=== PATIENT | female | born 1985 | race Caucasian/White ===

== ENCOUNTER 2016-05-29 07:47 | Emergency (ER) | payer MEDICAID ==
[2016-05-29] MEDS ORDERED: Ondansetron INJ* 2 MG/ML VIAL IV ONE (07:58)
[2016-05-29] MEDS ORDERED: NS 0.9% 1000 ML* 1,000 ML IV ONE (07:58)
[2016-05-29] MEDS ORDERED: Famotidine IV* 10 MG/ML 2 ML (20 mg) IV SLOW PU ONE (08:20)
[2016-05-29 08:27] LABS: Hematocrit 39 % (35-47); Hemoglobin 12.7 g/dl (12.0-16.0); Mean Corpuscular HGB Conc 33 g/dl (31-36); Mean Corpuscular Hemoglobin 28 pg (27-31); Mean Corpuscular Volume 86 fL (80-97); Mean Platelet Volume 11 um3 (7.4-10.4); Red Cell Distribution Width 15 % (10.5-15); White Blood Count 5.5 10^3/ul (3.5-10.8)
[2016-05-29 08:42] LABS: ALT 15 U/L (7-52); AST 26 U/L (13-39); Albumin 4.7 g/dL (3.2-5.2); Alkaline Phosphatase 40 U/L (34-104); Amylase 72 U/L (29-103); Anion Gap 5 mmol/L (2-11); BUN/Creatinine Ratio 14.7 (8-20); Blood Urea Nitrogen 11 mg/dL (6-24); C Reactive Protein < 1.00 mg/L (< 5.00); CO2 Carbon Dioxide 27 mmol/L (22-32); Calcium 9.5 mg/dL (8.6-10.3); Chloride 103 mmol/L (101-111); EGFR African American 118.3 (>60); Glucose 97 mg/dL (70-100); Lipase 21 U/L (11.0-82.0); Potassium 3.7 mmol/L (3.5-5.0); Sodium 135 mmol/L (133-145); Total Protein 7.7 g/dL (6.4-8.9)
[2016-05-29 10:07] LABS: Urine Bilirubin Negative (Negative); Urine Glucose Negative (Negative); Urine Nitrite Negative (Negative)
--- NOTE | 2016-05-29 10:14 | RAD ---
Indication: Lower mid abdomen pain. Flat and upright views of the abdomen demonstrates no free air. No dilated loops of bowel are noted. The colon is filled with stool. IMPRESSION: No free air or obstruction is noted.
[2016-05-29 10:58] VITALS: BP 98/59
--- NOTE | 2016-05-29 17:17 | ED ---
Prachi Oliveros Michael, scribed for Prabhjot Turner MD on 05/29/16 at 0823 . GI/ HPI - HPI Summary HPI Summary: 30 y/o female comes to the ED presenting with n/v/d that started at 0300 this morning. The pt also c/o intermittent episodes of lower abd pain that she describes as cramping. The abd pain does not radiate to other areas. She also c/ o MASSEY and chills, and the pt is afebrile. She had not eaten anything abnormal recently. The PMHx is significant for a heart murmur and an AV malformation. Her LNMP was one week ago, and she states she is not . The FHx is significant for DM and CA. - History of Current Complaint Chief Complaint: EDNauseaVomitDiarrh Time Seen by Provider: 05/29/16 07:58 Stated Complaint: VOMITING / DIZZY Hx Obtained From: Patient, Medical Records Onset/Duration: Started Hours Ago, Still Present Timing: Intermittent Severity: Moderate Current Severity: Moderate Pain Intensity: 0 Location of Pain: RLQ, LLQ Pain Characteristics: Cramping Associated Signs and Symptoms: Positive: Nausea, Vomiting, Diarrhea, Chills, Abdominal Pain, Other: - MASSEY. Negative: Fever - Allergy/Home Medications Allergies/Adverse Reactions: Allergies Allergy/AdvReac Type Severity Reaction Status Date / Time Adhesive Tape Allergy Mild Rash And Verified 05/29/16 08:22 Itching Aspirin [From Coricidin] Allergy Unknown Unknown Verified 05/29/16 08:22 Reaction Details Chlorpheniramine Allergy Unknown Unknown Verified 05/29/16 08:22 [From Coricidin] Reaction Details Diphenhydramine Allergy Unknown Verified 05/29/16 08:22 [From Benadryl] Reaction Details Flu Virus Vaccine Allergy See Comment Verified 05/29/16 08:22 PMH/Surg Hx/FS Hx/Imm Hx Endocrine/Hematology History: Denies: Hx Diabetes, Hx Thyroid Disease Cardiovascular History: Denies: Hx Hypertension, Hx Pacemaker/ICD Respiratory History: Reports: Hx Asthma Denies: Hx Chronic Obstructive Pulmonary Disease (COPD) GI History: Denies: Hx Ulcer Sensory History: Denies: Hx Hearing Aid Psychiatric History: Reports: Hx Panic Disorder - Surgical History Surgery Procedure, Year, and Place: EAR TUBES A CHILD - Immunization History Date of Tetanus Vaccine: utd Date of Influenza Vaccine: no Infectious Disease History: No Infectious Disease History: Denies: Hx Clostridium Difficile, Hx Hepatitis, Hx Human Immunodeficiency Virus (HIV), Hx of Known/Suspected MRSA, Hx Shingles, Hx Tuberculosis, Hx Known/ Suspected VRE, Hx Known/Suspected VRSA, History Other Infectious Disease, Traveled Outside the [place] in Last 30 Days - Family History Known Family History: Positive: Diabetes, Other - CA - Social History Occupation: Employed Full-time Lives: Alone Alcohol Use: None Hx Substance Use: No Substance Use Type: Reports: None Hx Tobacco Use: Yes Smoking Status (MU): Light Every Day Tobacco Smoker Type: Cigarettes Amount Used/How Often: 1/2 PPD Length of Time of Smoking/Using Tobacco: 7 YEARS Have You Smoked in the Last Year: Yes Review of Systems Positive: Chills. Negative: Fever Positive: Abdominal Pain, Vomiting, Diarrhea, Nausea Positive: Headache All Other Systems Reviewed And Are Negative: Yes Physical Exam - Summary Physical Exam Summary: VITAL SIGNS: Reviewed. GENERAL: Patient is a well developed and nourished female who is lying comfortable in the stretcher. Patient is not in any acute respiratory distress. HEAD AND FACE: Normocephalic and atraumatic. EYES: PERRLA, EOMI x 2, No injected conjunctiva. EARS: Hearing grossly intact. Ear canals and tympanic membranes are WNL. MOUTH: Oropharynx within normal limits. NECK: Supple, trachea is midline, no adenopathy, no JVD. CHEST: Symmetric, no tenderness at palpation LUNGS: Clear to auscultation bilaterally. No wheezing or crackles. CVS: RRR,, S1 and S2 present, positive ESM II/ ABDOMEN: Soft, diffuse abdominal tenderness.. No signs of distention. Positive bowel sounds. No rebound no guarding, and no masses palpated. No abdominal bruit or pulsations. EXTREMITIES: FROM in all major joints, no edema, no cyanosis or clubbing. NEURO: Alert and oriented x 3. No acute neurological deficits. Speech is normal. SKIN: Dry and warm Triage Information Reviewed: Yes Vital Signs On Initial Exam: Initial Vitals Temp Pulse Resp BP Pulse Ox 97.4 F 88 18 118/69 100 05/29/16 07:51 05/29/16 07:51 05/29/16 07:51 05/29/16 07:51 05/29/16 07:51 Vital Signs Reviewed: Yes Diagnostics - Vital Signs Vital Signs Temp Pulse Resp BP Pulse Ox 05/29/16 07:51 97.4 F 88 18 118/69 100 - Laboratory Result Diagrams: 05/29/16 08:15 05/29/16 08:15 Lab Statement: Any lab studies that have been ordered have been reviewed, and results considered in the medical decision making process. - Radiology abd XR Xray Interpretation: No Acute Changes - no free air or obstruction Radiology Interpretation Completed By: Radiologist - EKG EK EKG Rhythm: Sinus Bradycardia EKG Interpretation: no st elevations GIGU Course/Dx - Course Course Of Treatment: 30 y/o female comes to the ED presenting with n/v/d that started at 0300 this morning. The pt also c/o intermittent episodes of lower abd pain that she describes as cramping. The abd pain does not radiate to other areas. She also c/o MASSEY and chills, and the pt is afebrile. She had not eaten anything abnormal recently. The PMHx is significant for a heart murmur and an AV malformation. Her LNMP was one week ago, and she states she is not . The FHx is significant for DM and CA. Her blood work was within nml limits and urine analysis shows no signs of UTI. The abd XR shows no evidence of air or obstruction. The EKG shows sinus bradycardia. The pt was hydrated with IV fluids and given Zofran and Pepcin. Her nausea and vomiting resolved at this point. She was given a PO challenge and no nausea or vomiting occurred. Since pt is feeling better with no other sx she will be discharged home and follow up with PCP. I discussed all the findings and test results with the patient. Patient was instructed to return to the emergency room immediately if any of the symptoms return or worsens. They were explained the possibility of an early abdominal pathology which was not detected at this time despite the physical exam and testing. They understand and agree. Abdominal exam before discharge: Soft, NT. No signs of distention. BS present. No rebound no guarding , and no masses palpated. Patient is alert and oriented and hemodynamically stable. Patient is to follow up with primary care physician in the next 2 to 3 days. Patient agree and understands. - Diagnoses Differential Diagnoses - Female: Colitis, Gastritis, Gastroenteritis (Viral), Gastroenteritis (Bacterial), Gerd Provider Diagnoses: Nausea & vomiting, Diarrhea Discharge - Discharge Plan Condition: Improved Disposition: HOME Prescriptions: Ondansetron ODT TAB* [Zofran 4 MG Odt TAB*] 4 mg PO Q6H PRN #10 tab.odt PRN Reason: Vomiting Patient Education Materials: Acute Nausea and Vomiting (ED), Acute Diarrhea (ED ) Forms: *Work Release Referrals: Omid Patel MD [Primary Care Provider] - Additional Instructions: You will follow up with Dr. Patel within the next 2-3 days. The documentation as recorded by the Prachi ambriz Michael accurately reflects the service I personally performed and the decisions made by , Prabhjot Turner MD.
== END 2016-05-29 10:56 | disposition home or self-care (01) ==
LOC: ED 07:47
DX: R10.30 Lower abdominal pain, unspecified (principal); R11.2 Nausea with vomiting, unspecified; R19.7 Diarrhea, unspecified; R51 Headache; F17.210 Nicotine dependence, cigarettes, uncomplicated
CPT/HCPCS: 36415; 74020; 80053; 81003; 82150; 83605; 83690; 83735; 85025; 86140; 93005; 99284; J2405

== ENCOUNTER 2016-06-14 10:01 | Emergency (ER) | payer MEDICAID ==
--- NOTE | 2016-06-14 12:09 | UC ---
Throat Pain/Nasal Mitesh HPI - HPI Summary HPI Summary: complaint of headache nchills and muscle achiness that started last night nasal congestion and cough sore throat feels like her lymph nodes feel swollen denies N/V/D not taking any medication for symptoms - History of Current Complaint Chief Complaint: UCRespiratory Stated Complaint: CHILLS, SORE THROAT, AND ACHES Time Seen by Provider: 06/14/16 12:06 Hx Obtained From: Patient Hx Last Menstrual Period: 06/13/16 - Allergies/Home Medications Allergies/Adverse Reactions: Allergies Allergy/AdvReac Type Severity Reaction Status Date / Time Adhesive Tape Allergy Mild Rash And Verified 05/29/16 08:22 Itching Aspirin [From Coricidin] Allergy Unknown Unknown Verified 05/29/16 08:22 Reaction Details Chlorpheniramine Allergy Unknown Unknown Verified 05/29/16 08:22 [From Coricidin] Reaction Details Diphenhydramine Allergy Unknown Verified 05/29/16 08:22 [From Benadryl] Reaction Details Flu Virus Vaccine Allergy See Comment Verified 05/29/16 08:22 PMH/Surg Hx/FS Hx/Imm Hx Previously Healthy: Yes Endocrine History Of: Denies: Diabetes, Thyroid Disease Cardiovascular History Of: Reports: Cardiac Disorders - murmur Denies: Hypertension, Pacemaker/ICD Respiratory History Of: Reports: Asthma Denies: COPD GI/ History Of: Denies: Ulcer - Surgical History Surgical History: Yes Surgery Procedure, Year, and Place: EAR TUBES A CHILD - Family History Known Family History: Positive: None, Diabetes, Other - CA - Social History Occupation: Employed Full-time Lives: With Family Alcohol Use: None Substance Use Type: None Smoking Status (MU): Light Every Day Tobacco Smoker Type: Cigarettes Amount Used/How Often: 1/2 PPD Length of Time of Smoking/Using Tobacco: 7 YEARS Have You Smoked in the Last Year: Yes Review of Systems Constitutional: Fever, Chills, Fatigue Skin: Negative Eyes: Negative ENT: Sore Throat, Nasal Discharge Respiratory: Cough Cardiovascular: Negative Gastrointestinal: Negative Genitourinary: Negative Motor: Negative Neurovascular: Negative Musculoskeletal: Myalgia Neurological: Headache Psychological: Negative All Other Systems Reviewed And Are Negative: Yes Physical Exam Triage Information Reviewed: Yes Appearance: No Pain Distress, Well-Nourished Vital Signs: Initial Vital Signs Temp 99.9 F 06/14/16 10:45 Pulse 89 06/14/16 10:45 Resp 18 06/14/16 10:45 BP 118/68 06/14/16 10:45 Pulse Ox 100 06/14/16 10:45 Vital Signs Reviewed: Yes Eyes: Positive: Conjunctiva Clear ENT: Positive: Pharyngeal erythema, Nasal congestion, Nasal drainage, TMs normal Neck: Positive: No Lymphadenopathy Respiratory: Positive: Lungs clear, Normal breath sounds, No respiratory distress Cardiovascular: Positive: RRR, No Murmur Abdomen Description: Positive: Nontender, Soft Bowel Sounds: Positive: Present Musculoskeletal: Positive: No Edema Neurological: Positive: Alert Psychological Exam: Normal Skin Exam: Normal Throat Pain/Nasal Course/Dx - Differential Dx/Diagnosis Differential Diagnosis/HQI/PQRI: Pharyngitis, Sinusitis, URI Provider Diagnoses: viral illness-influenza like Discharge - Discharge Plan Condition: Stable Disposition: HOME Patient Education Materials: Pharyngitis (ED) Forms: *Work Release Referrals: Omid Patel MD [Primary Care Provider] - Additional Instructions: PHARYNGITIS (Sore Throat) What is Pharyngitis? The medical name for a sore throat is Pharyngitis. It is caused by an infection or irritation of your throat or tonsils. The infection can be caused by a virus or by bacteria. Not everyone with Pharyngitis needs antibiotics. Antibiotics will not make viral infections better, and they will not help a sore throat caused by irritation. Symptoms May Include: Sore throat Swelling of the glands in the neck Trouble or pain with swallowing Fever Headache Cough Extreme tiredness Ear pain Treatment Recommendations: Gargle every few hours with a solution of 1/4 teaspoon of salt dissolved in 1/ 2 cup of warm water. Drink plenty of warm beverages, like tea with lemon, (with or without honey) and soup. You may eat and drink cold foods and liquids like frozen yogurt, popsicles, and ice water if that makes your throat feel better. The goal is to keep you well hydrated. Use a "cool-mist" vaporizer or humidifier in the room where you spend most of your time. If you get a sore throat often, consider adding an electronic air filter and humidifier to your furnace system. Don't smoke. Do not eat spicy foods. Take medicine exactly as prescribed. If you do not think it is helping, call your healthcare provider. Do not increase how much or how often you take it without getting their OK first. Non-prescription anti-inflammatory medicine like ibuprofen (Motrin, Advil) or naproxen (Aleve) may help lessen the pain. You should not take these medicines if you have had bleeding in your stomach in the past. Acetaminophen ( Tylenol) is another choice of medicine that may help the pain. If pain medicine that makes you tired or sleepy or contains narcotics is prescribed, you should not drink, drive, or participate in any other activities that you need to be clear-headed for. Please keep all medicines out of the reach of children. Do not get in close contact with anyone you know who has a sore throat. Use throat lozenges (Cepostat, [place], etc.) or suck on hard candy for temporary relief of the pain with swallowing. (Do not give to children under age 5.) Call Your Doctor or Return Here IF: Your symptoms do not start to get better within 2 days or you become worse. You have a fever over 101.0 F orally. You cant swallow liquids or saliva. You are drooling. You start to have trouble breathing. You start to have a rash. You start to have a stiff neck. You start to have pain in your chest. You start to have any symptoms that are new or worry you.
[2016-06-14 13:09] VITALS: BP 112/62
== END 2016-06-14 13:13 | disposition home or self-care (01) ==
LOC: UCEAST 10:01
DX: J11.1 Influenza due to unidentified influenza virus with other respiratory manifestations (principal); R01.1 Cardiac murmur, unspecified; J45.909 Unspecified asthma, uncomplicated; F17.210 Nicotine dependence, cigarettes, uncomplicated; Z88.6 Allergy status to analgesic agent; Z88.7 Allergy status to serum and vaccine; Z91.048 Other nonmedicinal substance allergy status
CPT/HCPCS: 87502; 87651; 99211; G0463

== ENCOUNTER 2016-06-25 21:42 | Emergency (ER) | payer MEDICAID ==
[2016-06-25] MEDS ORDERED: Ondansetron INJ* 2 MG/ML VIAL ONE ×2 (22:03)
[2016-06-25] MEDS ORDERED: NS 0.9% 1000 ML*IV.FLUID IV ONE (22:04)
[2016-06-25] MEDS ORDERED: Ondansetron INJ* 2 MG/ML VIAL IV ONE ×2 (22:04→23:38)
[2016-06-25 22:16] LABS: Hematocrit 40 % (35-47); Mean Corpuscular HGB Conc 33 g/dl (31-36); Mean Corpuscular Hemoglobin 28 pg (27-31); Mean Corpuscular Volume 85 fL (80-97); Mean Platelet Volume 10 um3 (7.4-10.4); Red Blood Count 4.68 10^6/ul (4.0-5.4); Red Cell Distribution Width 15 % (10.5-15); White Blood Count 15.2 10^3/ul (3.5-10.8)
[2016-06-25 22:31] LABS: ALT 17 U/L (7-52); AST 26 U/L (13-39); Albumin 4.4 g/dL (3.2-5.2); Alkaline Phosphatase 41 U/L (34-104); Anion Gap 6 mmol/L (2-11); Blood Urea Nitrogen 15 mg/dL (6-24); CO2 Carbon Dioxide 29 mmol/L (22-32); Calcium 9.3 mg/dL (8.6-10.3); Chloride 102 mmol/L (101-111); EGFR African American 111.4 (>60); EGFR Non-African American 86.7 (>60); Globulin 3.2 g/dL (2-4); Glucose 98 mg/dL (70-100); Lipase 21 U/L (11.0-82.0); Potassium 3.6 mmol/L (3.5-5.0); Sodium 137 mmol/L (133-145); Total Protein 7.6 g/dL (6.4-8.9)
--- NOTE | 2016-06-25 23:03 | ED ---
GI/ HPI - HPI Summary HPI Summary: 30F presents with n/v/d and pelvic pain starting today. She says that she has had this symptoms intermittent for a month now. She says she went to urgent care a week ago and diagnosed with vertigo. She states she has been taking meclizine as needed for the vertigo. She states today she develops some n/v/d and she took a zofran and felt better and went to sleep for an hour when her symptoms returned. She denies any blood in her stool. She admits to pelvic pain which she states feels like cramps that she believes is from the vomiting. She denies any vaginal discharge or history of STDs. She denies any dysuria, hematuria, or flank pain. She states she has been having fevers. She states she did not eat anything abdominal. She states this is all similar to the symptoms she had a couple weeks ago when she was seen here. She denies any previous abdominal surgeries. - History of Current Complaint Chief Complaint: EDNauseaVomitDiarrh Time Seen by Provider: 06/25/16 21:58 Stated Complaint: VOMITING Pain Intensity: 8 - Allergy/Home Medications Allergies/Adverse Reactions: Allergies Allergy/AdvReac Type Severity Reaction Status Date / Time Adhesive Tape Allergy Mild Rash And Verified 05/29/16 08:22 Itching Aspirin [From Coricidin] Allergy Unknown Unknown Verified 05/29/16 08:22 Reaction Details Chlorpheniramine Allergy Unknown Unknown Verified 05/29/16 08:22 [From Coricidin] Reaction Details Diphenhydramine Allergy Unknown Verified 05/29/16 08:22 [From Benadryl] Reaction Details Flu Virus Vaccine Allergy See Comment Verified 05/29/16 08:22 PMH/Surg Hx/FS Hx/Imm Hx Endocrine/Hematology History: Denies: Hx Diabetes, Hx Thyroid Disease Cardiovascular History: Denies: Hx Hypertension, Hx Pacemaker/ICD Respiratory History: Reports: Hx Asthma Denies: Hx Chronic Obstructive Pulmonary Disease (COPD) GI History: Denies: Hx Ulcer Sensory History: Denies: Hx Hearing Aid Psychiatric History: Reports: Hx Panic Disorder - Surgical History Surgery Procedure, Year, and Place: EAR TUBES A CHILD - Immunization History Date of Tetanus Vaccine: utd Date of Influenza Vaccine: no Infectious Disease History: Yes Infectious Disease History: Denies: Hx Clostridium Difficile, Hx Hepatitis, Hx Human Immunodeficiency Virus (HIV), Hx of Known/Suspected MRSA, Hx Shingles, Hx Tuberculosis, Hx Known/ Suspected VRE, Hx Known/Suspected VRSA, History Other Infectious Disease, Traveled Outside the [place] in Last 30 Days - Family History Known Family History: Positive: None, Diabetes, Other - CA - Social History Alcohol Use: None Hx Substance Use: No Substance Use Type: Reports: None Hx Tobacco Use: Yes Smoking Status (MU): Light Every Day Tobacco Smoker Type: Cigarettes Amount Used/How Often: 1/2 PPD Length of Time of Smoking/Using Tobacco: 7 YEARS Have You Smoked in the Last Year: Yes Review of Systems Positive: Fever Negative: Chest Pain Negative: Shortness Of Breath Positive: Abdominal Pain - pelvic, Vomiting, Diarrhea, Nausea Negative: dysuria All Other Systems Reviewed And Are Negative: Yes Physical Exam Triage Information Reviewed: Yes Vital Signs On Initial Exam: Initial Vitals Temp Pulse Resp BP Pulse Ox 99.9 F 77 16 111/59 100 06/25/16 21:49 06/25/16 21:49 06/25/16 21:49 06/25/16 21:49 06/25/16 21:49 Vital Signs Reviewed: Yes Appearance: Positive: Well-Appearing Skin: Positive: Warm, Dry Head/Face: Positive: Normal Head/Face Inspection Eyes: Positive: Normal, Conjunctiva Clear Respiratory/Lung Sounds: Positive: Clear to Auscultation, Breath Sounds Present Cardiovascular: Positive: Normal, RRR Abdomen Description: Positive: Soft, Other: - mild pelvic pain on palpation, nontender RLQ, neg rovsings, and obturator. Negative: Distended, Guarding Bowel Sounds: Positive: Present - Hernandez Coma Scale Coma Scale Total: 15 Diagnostics - Vital Signs Vital Signs Temp Pulse Resp BP Pulse Ox 06/25/16 22:00 78 99 06/25/16 21:58 84 99 06/25/16 21:49 99.9 F 77 16 111/59 100 - Laboratory Lab Results: Lab Results 06/25/16 06/25/16 Range/Units 22:00 22:00 WBC 15.2 H (3.5-10.8) 10^3/ul RBC 4.68 (4.0-5.4) 10^6/ul Hgb 13.0 (12.0-16.0) g/dl Hct 40 (35-47) % MCV 85 (80-97) fL MCH 28 (27-31) pg MCHC 33 (31-36) g/dl RDW 15 (10.5-15) % Plt Count 182 (150-450) 10^3/ul MPV 10 (7.4-10.4) um3 Neut % (Auto) 89.1 H (38-83) % Lymph % (Auto) 6.3 L (25-47) % [place] % (Auto) 3.5 (1-9) % Eos % (Auto) 0.8 (0-6) % Baso % (Auto) 0.3 (0-2) % Absolute Neuts (auto) 13.6 H (1.5-7.7) 10^3/ul Absolute Lymphs (auto) 1.0 (1.0-4.8) 10^3/ul Absolute Monos (auto) 0.5 (0-0.8) 10^3/ul Absolute Eos (auto) 0.1 (0-0.6) 10^3/ul Absolute Basos (auto) 0 (0-0.2) 10^3/ul Absolute Nucleated RBC 0.01 10^3/ul Nucleated RBC % 0.1 Sodium 137 (133-145) mmol/L Potassium 3.6 (3.5-5.0) mmol/L Chloride 102 (101-111) mmol/L Carbon Dioxide 29 (22-32) mmol/L Anion Gap 6 (2-11) mmol/L BUN 15 (6-24) mg/dL Creatinine 0.79 (0.51-0.95) mg/dL Est GFR ( Amer) 111.4 (>60) Est GFR (Non-Af Amer) 86.7 (>60) BUN/Creatinine Ratio 19.0 (8-20) Glucose 98 (70-100) mg/dL Calcium 9.3 (8.6-10.3) mg/dL Total Bilirubin 0.50 (0.2-1.0) mg/dL AST 26 (13-39) U/L ALT 17 (7-52) U/L Alkaline Phosphatase 41 (34-104) U/L C-React Prot High Sens 1.22 mg/L Total Protein 7.6 (6.4-8.9) g/dL Albumin 4.4 (3.2-5.2) g/dL Globulin 3.2 (2-4) g/dL Albumin/Globulin Ratio 1.4 (1-3) Lipase 21 (11.0-82.0) U/L Beta HCG, Quant < 0.60 mIU/mL Result Diagrams: 06/25/16 22:00 06/25/16 22:00 Lab Statement: Any lab studies that have been ordered have been reviewed, and results considered in the medical decision making process. - Ultrasound No standard instances Ultrasound Interpretation: No Acute Changes - no ovarian torison. 2.7 cm dominant follice left ovary, normal uterus. Ultrasound Interpretation Completed By: Radiologist Re-Evaluation - Re-Evaluation First Eval Re-Evaluation Time: 00:00 Change: Improved Comment: patient feels better, no longer nausous, abdomen soft nontender GIGU Course/Dx - Course Course Of Treatment: 30F presents with n/v/d and pelvic pain for a day. says had this symptoms two week ago and was seen here and given zofran and resolved but then went home and symptoms return. she also c/o fevers but has no fever on exam. She had not eaten anything abnormal recently. triage says started new medication but she states she has taken medication before today and not had these symptoms. on exam she is tender in pelvic region but is nontender in RLQ and neg obturator and rovsings. patient refused pelvic stating not chance of STD. u/s pelvis normal. discussed lab results with patient has wbc 15 but states that has had symptoms on and off for a month. crp 1.22 and nontender in RLQ so do not suspect appendicitis but told if develops RLQ pain to return to get CT done. urine normal. will treat as bacterial gastroenteritis due to white count will give cipro. patient understands and agrees with plan - Diagnoses Differential Diagnoses - Female: Appendicitis, Gastroenteritis (Viral), Gastroenteritis (Bacterial), Pelvic Inflammatory Disease, STD, Urinary Tract Infection Provider Diagnoses: Abdominal pain, Nausea & vomiting Discharge - Discharge Plan Condition: Good Disposition: HOME Prescriptions: Ciprofloxacin TAB* [Cipro 500 MG TAB*] 500 mg PO BID #13 tab Ondansetron ODT TAB* [Zofran 4 MG Odt TAB*] 4 mg PO Q6H PRN #15 tab.odt PRN Reason: Nausea Patient Education Materials: Acute Nausea and Vomiting (ED) Referrals: Omid Patel MD [Primary Care Provider] - Additional Instructions: Take ciprofloxacin twice a day for 7 days Take zofran every 6 hours for nausea Drink small amounts of fluid as tolerated When able to eat follow BRAT diet: Bananas, rice, applesauce, toast Take ibuprofen or Tylenol for pain as needed every 6 hours Follow up with primary within 3 days Return to ED if pain develops in right lower quadrant or any new or worsening symptoms
[2016-06-25] MEDS ORDERED: Ciprofloxacin TAB* 500 MG PO ONE (23:31)
[2016-06-26 00:56] LABS: Urine Bacteria Absent (Absent); Urine Bilirubin Negative (Negative); Urine Glucose Negative (Negative); Urine Nitrite Negative (Negative)
[2016-06-26 01:23] VITALS: BP 100/71
--- NOTE | 2016-06-26 05:55 | RAD ---
INDICATION: Pelvic pain. Cramping. COMPARISON: None TECHNIQUE: Longitudinal and transverse transabdominal scans of the pelvis were obtained. FINDINGS: Uterus: The uterus is normal in size. There are no focal masses. The uterus measures 8.3 x 4.6 x 4.8 cm. Endometrial thickness: The endometrial thickness is measured at 1.2 cm. . Free fluid: There is no significant free fluid . Ovaries: The ovaries are normal in size. The right ovary measures 3.3 x 1.8 x 2.3 cm. The left ovary measures 2.5 x 2.1 x 2.9 cm. There are small follicles bilaterally with a dominant 1.7 cm left ovarian follicle. Doppler interrogation demonstrates flow to each ovary. Other: None IMPRESSION: NORMAL STUDY. 1.7 CM LEFT OVARIAN FOLLICLE.
== END 2016-06-26 01:24 | disposition home or self-care (01) ==
LOC: ED 21:42
DX: R10.9 Unspecified abdominal pain (principal); R11.2 Nausea with vomiting, unspecified; R10.2 Pelvic and perineal pain; R50.9 Fever, unspecified; F17.210 Nicotine dependence, cigarettes, uncomplicated; R19.7 Diarrhea, unspecified
CPT/HCPCS: 36415; 76856; 80053; 81003; 81015; 83690; 84702; 85025; 86141; 96374; 96375; 99283; A9270-GY; J2405

== ENCOUNTER 2016-09-28 17:08 | Emergency (ER) | payer MEDICAID ==
[2016-09-28 17:22] VITALS: BP 110/67
--- NOTE | 2016-09-28 18:00 | UC ---
Jerman Oliveros Benjamin, scribed for Prabhjot Appiah MD on 09/28/16 at 1738 . Cardiac HPI - HPI Summary HPI Summary: 30yo female c/o right sided dental pain for a few weeks. Pt thinks she might have cracked her tooth. Pt also reports intermittent sharp pain in her left lower chest pain. No current CP. Pt took ibuprofen a couple hours [employer] for her dental pain. Dentist appointment scheduled for this Monday. Exertion triggers her CP and pt also reports SOB when she gets CP. Pt denies recent travel, fever , chills, or cough. No pain or swelling in legs. - History of Current Complaint Chief Complaint: UCDentalProblem Stated Complaint: DENTAL PAIN Time Seen by Provider: 09/28/16 17:16 Hx Obtained From: Patient, Family/Buttonhole Facer - partner Onset/Duration: Gradual Onset, Lasting Days, Still Present Timing: Intermittent Episodes Lasting: Initial Severity: Moderate Current Severity: None Pain Intensity: 5 Chest Pain Location: Left Lateral - left lower chest Character: Sharp/Stabbing Aggravating: Exertion Alleviating: Spontaneous Resolution Associated Signs & Symptoms: Positive: Chest Pain, SOB - Allergy/Home Medications Allergies/Adverse Reactions: Allergies Allergy/AdvReac Type Severity Reaction Status Date / Time Adhesive Tape Allergy Mild Rash And Verified 09/28/16 17:23 Itching Aspirin [From Coricidin] Allergy Unknown Unknown Verified 09/28/16 17:23 Reaction Details Chlorpheniramine Allergy Unknown Unknown Verified 05/29/16 08:22 [From Coricidin] Reaction Details Diphenhydramine Allergy Unknown Verified 09/28/16 17:23 [From Benadryl] Reaction Details Flu Virus Vaccine Allergy See Comment Verified 09/28/16 17:23 Home Medications: Home Medications Ibuprofen [Advil] 400 mg PO Q4H PRN 09/28/16 [History Confirmed 09/28/16] PMH/Surg Hx/FS Hx/Imm Hx Previously Healthy: No Respiratory History: Asthma - Surgical History Surgical History: Yes Surgery Procedure, Year, and Place: EAR TUBES A CHILD - Family History Known Family History: Positive: None, Diabetes, Other - [place] - Social History Occupation: Employed Full-time Lives: With Family Alcohol Use: Rare Substance Use Type: None Smoking Status (MU): Heavy Every Day Tobacco Smoker Type: Cigarettes Amount Used/How Often: 1/2-1PPD Length of Time of Smoking/Using Tobacco: 7 YEARS Have You Smoked in the Last Year: Yes Review of Systems Constitutional: Negative Skin: Negative Eyes: Negative ENT: Dental Pain - right sided Respiratory: Shortness Of Breath Cardiovascular: Chest Pain Gastrointestinal: Negative Genitourinary: Negative Motor: Negative Neurovascular: Negative Musculoskeletal: Negative Neurological: Negative Psychological: Negative All Other Systems Reviewed And Are Negative: Yes Physical Exam Triage Information Reviewed: Yes Appearance: Well-Appearing, No Pain Distress, Well-Nourished Vital Signs: Initial Vital Signs Temp 98.3 F 09/28/16 17:15 Pulse 77 09/28/16 17:15 Resp 16 09/28/16 17:15 BP 110/67 09/28/16 17:15 Pulse Ox 100 09/28/16 17:15 Eye Exam: Normal ENT: Positive: Normal ENT inspection Dental: Positive: Gross Decay/Caries @ - right mandibular molar Neck: Positive: Supple Respiratory: Positive: Chest non-tender, Lungs clear Cardiovascular: Positive: RRR, No Murmur Abdomen Description: Positive: Nontender Musculoskeletal: Positive: Strength Intact, ROM Intact, No Edema Neurological: Positive: Alert Psychological: Positive: Normal Response To Family, Age Appropriate Behavior Diagnostics - EKG Cardiac Rate: NL - 65bpm Cardiac Rhythm: Sinus: Normal - EKG taken at 1744. Sinus rhythm. Ectopy: None ST Segment: Normal - no STEMI - Assessment/Plan Course Of Treatment: Reviewed pt's medications list. Spoke to Dr. Nguyen at [facility] at 17:57 to notify that the pt will be coming into ED via private car for further evaluation of her chest pain. she signed out AMA refusal of ambulance - Clinical Impression Provider Diagnoses: chest pain with shortness of breath. dental pain. dental cavity - Physician Notifications Discussed Patient Care With: Omid Nguyen Time Discussed With Above Provider: 17:57 Discharge - Discharge Plan Condition: Good Disposition: AGAINST MEDICAL ADVICE Referrals: Omid Patel MD [Primary Care Provider] - The documentation as recorded by the Jerman ambriz Benjamin accurately reflects the service I personally performed and the decisions made by , Prabhjot Appiah MD.
== END 2016-09-28 18:09 | disposition left against medical advice (07) ==
LOC: UCEAST 17:08
DX: R07.89 Other chest pain (principal); R06.02 Shortness of breath; K02.9 Dental caries, unspecified; J45.909 Unspecified asthma, uncomplicated; Z88.6 Allergy status to analgesic agent; Z88.7 Allergy status to serum and vaccine; Z88.8 Allergy status to other drugs, medicaments and biological substances; Z91.048 Other nonmedicinal substance allergy status; F17.210 Nicotine dependence, cigarettes, uncomplicated
CPT/HCPCS: 93005; 99212; G0463

== ENCOUNTER 2016-09-28 17:11 | Emergency (ER) | payer SELFPAY ==
[2016-09-28 17:29] VITALS: BP 110/67
--- NOTE | 2016-09-28 17:53 | UC ---
Jerman Oliveros Benjamin, scribed for Prabhjot Appiah MD on 09/28/16 at 1747 . Head Injury HPI - HPI Summary HPI Summary: 30yo female s/p right hand injury on September 12 came for work release. Pt was seen initially at [facility] and followed up at occupational therapy clinic for worker's comp. Pt states that her hand is better now. - History Of Current Complaint Stated Complaint: HAND INJURY Time Seen by Provider: 09/28/16 17:16 Hx Obtained From: Patient Hx Last Menstrual Period: 09/13/16 ?: No Onset/Duration: Lasting Weeks, Resolved Severity Currently: None Severity Initially: Moderate Pain Intensity: 0 Pain Scale Used: 0-10 Numeric Character: Throbbing Aggravating Factor(s): Nothing Alleviating Factor(s): Nothing Associated Signs And Symptoms: Positive: Negative - Allergies/Home Medications Allergies/Adverse Reactions: Allergies Allergy/AdvReac Type Severity Reaction Status Date / Time Adhesive Tape Allergy Mild Rash And Verified 09/28/16 17:23 Itching Aspirin [From Coricidin] Allergy Unknown Unknown Verified 09/28/16 17:23 Reaction Details Chlorpheniramine Allergy Unknown Unknown Verified 05/29/16 08:22 [From Coricidin] Reaction Details Diphenhydramine Allergy Unknown Verified 09/28/16 17:23 [From Benadryl] Reaction Details Flu Virus Vaccine Allergy See Comment Verified 09/28/16 17:23 PMH/Surg Hx/FS Hx/Imm Hx Previously Healthy: No Respiratory History: Asthma - Surgical History Surgical History: Yes Surgery Procedure, Year, and Place: EAR TUBES A CHILD - Family History Known Family History: Positive: None, Diabetes, Other - [place] - Social History Occupation: Employed Full-time Lives: With Family Alcohol Use: None Substance Use Type: None Smoking Status (MU): Heavy Every Day Tobacco Smoker Type: Cigarettes Amount Used/How Often: 1/2-1PPD Length of Time of Smoking/Using Tobacco: 7 YEARS Have You Smoked in the Last Year: Yes Review of Systems Constitutional: Negative Skin: Negative Eyes: Negative ENT: Negative Respiratory: Negative Cardiovascular: Negative Gastrointestinal: Negative Genitourinary: Negative Motor: Negative Neurovascular: Negative Musculoskeletal: Negative Neurological: Negative Psychological: Negative All Other Systems Reviewed And Are Negative: Yes Physical Exam Triage Information Reviewed: Yes Appearance: Well-Appearing, No Pain Distress Vital Signs: Initial Vital Signs Temp 98.3 F 09/28/16 17:25 Pulse 77 09/28/16 17:25 Resp 16 09/28/16 17:25 BP 110/67 09/28/16 17:25 Pulse Ox 100 09/28/16 17:25 Eyes: Positive: Conjunctiva Clear ENT: Positive: Normal ENT inspection Respiratory: Positive: Chest non-tender, Lungs clear Cardiovascular: Positive: RRR, No Murmur Musculoskeletal: Positive: Strength Intact, ROM Intact, No Edema, Other: - right hand without deformity Neurological: Positive: Alert, Muscle Tone Normal Psychological: Positive: Normal Response To Family Skin: Negative: rashes Head Injury Course/Dx - Course Course Of Treatment: Reviewed pt's medications list. Advised pt to be seen at the clinic where she followed up after her initial visit at [facility] for worker' s comp. She will return to the occupational health people who took her out of work. - Differential Dx/Diagnosis Provider Diagnoses: hand injury Discharge - Discharge Plan Condition: Good Disposition: HOME The documentation as recorded by the Jerman ambriz Benjamin accurately reflects the service I personally performed and the decisions made by me, Prabhjot Appiah MD.
== END 2016-09-28 18:08 | disposition home or self-care (01) ==
LOC: UCEAST 17:11
DX: S69.91XD Unspecified injury of right wrist, hand and finger(s), subsequent encounter (principal); X58.XXXD Exposure to other specified factors, subsequent encounter; J45.909 Unspecified asthma, uncomplicated; Z88.6 Allergy status to analgesic agent; Z88.7 Allergy status to serum and vaccine; Z88.8 Allergy status to other drugs, medicaments and biological substances; Z91.048 Other nonmedicinal substance allergy status; F17.210 Nicotine dependence, cigarettes, uncomplicated
CPT/HCPCS: 99211; G0463

== ENCOUNTER 2016-10-24 16:38 | Emergency (ER) | payer MEDICAID ==
[2016-10-24] MEDS ORDERED: Acetaminophen TAB* 325 MG PO ONE (17:13)
--- NOTE | 2016-10-24 17:50 | UC ---
Jerman Oliveros Benjamin, scribed for Jasmine Escobar MD on 10/24/16 at 1707 . Cardiac HPI - HPI Summary HPI Summary: 30yo female c/o CP and SOB today. Pt has been having intermittent CP and SOB for about a month, but states her pain has gotten worse today. Pt denies cough or nausea. Lying down helps her pain and but pain movement and some arm movements increase pain. Pt also reports some abdominal cramps, unrelated to her menstrual period. No fevers, chills. No rash. No lightheadedness. LMP was , which is normal for her. Pt atif any vaginal discharge/odor or dysuria. Pt took ibuprofen a few days ago for her pain, but states did not help. No trauma. No back pain. Hx of GERD, anxiety, claustrophobia, panic disorder, and ADHD. Pt is supposed to take Adderall for ADHD but is not taking any currently. Pt supposed to take antacid but is not. Denies belching but reports sometimes feels gas, Pt live on 3 [address] walk up. 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 Pt is a smoker. FHX of Lung CA and COPD. Reviewed pts medication and allergy lists. - History of Current Complaint Chief Complaint: UCChestPain Stated Complaint: SOB,CHEST PAIN Time Seen by Provider: 10/24/16 16:43 Hx Obtained From: Patient, Family/Command Post Superintendent - partner Hx Last Menstrual Period: 10/12/16 Onset/Duration: Lasting Weeks - 4 weeks, Still Present, Worse Since - today Timing: Intermittent Episodes Lasting: Initial Severity: Moderate Current Severity: Moderate Pain Intensity: 7 Chest Pain Location: Diffuse Character: Sharp/Stabbing Aggravating: Nothing Alleviating: Position - lying down Associated Signs & Symptoms: Positive: Chest Pain, Anxiety, SOB, Abdominal Pain - epigastric - Allergy/Home Medications Allergies/Adverse Reactions: Allergies Allergy/AdvReac Type Severity Reaction Status Date / Time Adhesive Tape Allergy Mild Rash And Verified 10/24/16 16:57 Itching Aspirin [From Coricidin] Allergy Unknown Unknown Verified 10/24/16 16:57 Reaction Details Chlorpheniramine Allergy Unknown Unknown Verified 10/24/16 16:57 [From Coricidin] Reaction Details Diphenhydramine Allergy Unknown Verified 10/24/16 16:57 [From [facility]] Reaction Details Flu Virus Vaccine Allergy See Comment Verified 10/24/16 16:57 PMH/Surg Hx/FS Hx/Imm Hx Previously Healthy: Yes Respiratory History: Asthma GI/ History: Gastroesophageal Reflux Psychological History: Anxiety - Claustrophobia, Other Other Psychological History: panic disorder - Surgical History Surgical History: Yes Surgery Procedure, Year, and Place: EAR TUBES A CHILD - Family History Known Family History: Positive: Diabetes, Respiratory Disease - COPD, Other - [place] - Social History Occupation: Employed Full-time Lives: With Family Alcohol Use: None Substance Use Type: None Smoking Status (MU): Heavy Every Day Tobacco Smoker Type: Cigarettes Amount Used/How Often: 1/2-1PPD Length of Time of Smoking/Using Tobacco: 7 YEARS Have You Smoked in the Last Year: Yes Review of Systems Constitutional: Negative Skin: Negative Eyes: Negative ENT: Negative Respiratory: Shortness Of Breath Cardiovascular: Chest Pain Gastrointestinal: Abdominal Pain - epigastric Genitourinary: Negative Motor: Negative Neurovascular: Negative Musculoskeletal: Negative Neurological: Negative Psychological: Negative All Other Systems Reviewed And Are Negative: Yes Physical Exam Triage Information Reviewed: Yes Appearance: Well-Appearing, No Pain Distress - easily changes position, lying to sitting, sitting to standing, Well-Nourished Vital Signs: Initial Vital Signs Temp 98.3 F 10/24/16 16:52 Pulse 74 10/24/16 16:52 Resp 18 10/24/16 16:52 BP 107/73 10/24/16 16:52 Pulse Ox 96 10/24/16 16:52 Eye Exam: Normal Eyes: Positive: Conjunctiva Clear. Negative: Discharge ENT Exam: Normal ENT: Positive: Normal ENT inspection, Hearing grossly normal, Pharynx normal, TMs normal. Negative: Nasal drainage Dental Exam: Normal Neck exam: Normal Neck: Positive: Supple, Nontender, No Lymphadenopathy Respiratory Exam: Normal Respiratory: Positive: Lungs clear, Normal breath sounds, No respiratory distress, No accessory muscle use. Negative: Chest non-tender - + TTP left distal, anterior ribs no crepitus, Respiratory distress Cardiovascular Exam: Normal Cardiovascular: Positive: RRR, No Murmur, Pulses Normal Abdominal Exam: Normal Abdomen Description: Positive: No Organomegaly, Soft. Negative: Nontender - mild epigastric pain withh deep palpation. No guarding, no rebound. abd soft Bowel Sounds: Positive: Present Musculoskeletal Exam: Normal Musculoskeletal: Positive: Strength Intact, ROM Intact, Other: - Pain increases with extension of elbows against resistance Full AROM Neurological Exam: Normal Neurological: Positive: Alert Psychological Exam: Normal Skin Exam: Normal Diagnostics - EKG Cardiac Rate: NL - 70bpm Cardiac Rhythm: Sinus: Normal - 1641. Ectopy: None ST Segment: Non-Specific Re-Evaluation - Re-Evaluation First Eval Re-Evaluation Time: 18:29 Comment: Discussed imaging results with the pt, as well as pt's course of treatment and disposition. - Assessment/Plan Course Of Treatment: Pt with epigastic pain, left lower rib with direct palpation. slight increased pain with ROM. differential increased PNA, PTX, gastritis, musculoskeletal pain, pleurisy. Will check CXR. analgesia. anticipate discharge - Clinical Impression Provider Diagnoses: left chest wall pain, epigastric pain Discharge - Discharge Plan Condition: Stable Disposition: HOME Prescriptions: Famotidine TAB* [Pepcid 20 MG TAB*] 20 mg PO DAILY #30 tab Patient Education Materials: Chest Wall Pain (ED) Referrals: Omid Patel MD [Primary Care Provider] - Additional Instructions: - Stay well hydrated. drink plenty of non-alcoholic, non-caffinated beverages - Okay to alternate ibuprofen (Advol, Motrin) and tylenol every 3 hours for pain. take with food. do not take for more than 4-5 days - IT is recommended you take pepcid to decrease stomach acid - apply heat to your chest wall - slow, deep breathing - Contact your doctor to schedule a follow-up appointment. contact your doctor or go to the emergency department questions or concerns - increased pain, vomiting, shortness of breath, fever, chills or other concerns The documentation as recorded by the Jerman ambriz Benjamin accurately reflects the service I personally performed and the decisions made by me, Jasmine Escobar MD.
--- NOTE | 2016-10-24 18:58 | RAD ---
INDICATION: Left anterior rib pain COMPARISON: Most recent comparison chest x-ray dated April 03, 2015 TECHNIQUE: PA and lateral views of the chest were obtained. FINDINGS: The heart and mediastinum are normal in size and contour. The lungs are grossly clear. There is no evidence of large pleural effusion. Visualized bones are normal for the patient's age. There is no radiographic evidence of free air beneath the diaphragm IMPRESSION: No radiographic evidence of acute cardiopulmonary disease.
[2016-10-24 19:22] VITALS: BP 100/69
== END 2016-10-24 18:45 | disposition home or self-care (01) ==
LOC: UCEAST 16:38
DX: R07.89 Other chest pain (principal); R10.13 Epigastric pain; J45.909 Unspecified asthma, uncomplicated; K21.9 Gastro-esophageal reflux disease without esophagitis; F40.240 Claustrophobia; F41.0 Panic disorder [episodic paroxysmal anxiety]; F90.9 Attention-deficit hyperactivity disorder, unspecified type; F41.9 Anxiety disorder, unspecified; F17.210 Nicotine dependence, cigarettes, uncomplicated; Z88.7 Allergy status to serum and vaccine; Z88.6 Allergy status to analgesic agent
CPT/HCPCS: 71020; 93005; 99212; A9270-GY; G0463

== ENCOUNTER 2017-04-01 20:03 | Inpatient (IN) | payer MEDICAID, OTHER ==
--- OUTSIDE RECORDS SUMMARY | 2017-04-01 20:22 | XMS REPORT ---
:1985 External Reference #:[id number] Author Organization [facility] Address [address] [place] [address] Phone [phone] Care Team Providers Name Role Phone HCP given Primary Care Physician Unavailable Payers Type Date Identification Numbers Payment Provider Subscriber Commercial Policy Number: [id number] [facility] Perry Chapin PayID: [id number] [address] [place] [address] Problems Date Description Provider Status Onset: 03/18/2014 Pulmonary Arteriovenous Malformations Boyd Giordano M.D. 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 Cigarette Use 03/18/2014 current cigarette smoker started ~age 19; up to 1ppd as of 03/18/14 - as of 2015Mar 20 ppd ETOH Use 04/06/2015 Abuses Alcohol drank 6-8 pack of 20 oz beer twice a week cut down some since having a child Smoking Patient is a former smoker Currently Active Patient is currently sexually active Condom Use Always Age 1st Dennard 20 Years Old STD's No STD History Allergies, Adverse Reactions, Alerts Date Description Reaction Status Severity Comments 03/18/2014 Coricidin active can't remember reaction 12/16/2014 Adhesives rash active 04/06/2015 Flu Virus Vaccine active 04/06/2015 Benadryl active 01/24/2011 NKDA inactive Medications Medication Date Status Form Strength Qnty SIG Indications Ordering Provider Prednisone 01/08/ Active TBPK 10mg (21) 21uni six tabs day M54.32 Erikaco, 2017 ts 1, five tabs Boyd, day 2, four M.D. tab day 3, three tabs day 4, 2 tabs day 5, 1 tab days 6 Tizanidine HCL 03/27/ Active Tablets 4mg 30tab Initially 03/21 M54.32 Giuliana, 2018 s tab 3 times a Boyd, day, can M.D. increase to 1 tablet tid, prn Elastic Back 03/27/ Active 1unit wear M54.5 Silcojimenez, Support 2018 s particularly Boyd, at work M.D. No Active 02/09/ Hx Unknown Medications 2015 - 2017 Pantoprazole 01/26/ Hx Tablets 40mg 14tab 1 by mouth R10.13 Omid davalos every day A. 02/09/ Amanda 2015 M.D. Adderall XR 06/11/ Hx Caps ER 20mg 30cap 1 every day F90.0 Omid 2016 - 24HR s code b A. 10/16/ Amanda, 2015 M.D. No Active 05/04/ Hx Unknown Medications 2015 - 2015 Pantoprazole 04/04/ Hx Tablets 40mg 30tab 1 by mouth K29.00 Cesilia Sodium 2015 Irvin davalos every day 2015 R12 No Active 12/16/2014 - Hx Unknown Medications 12/16/2014 Amoxicillin 12/16/2014 - Hx Capsules 250mg 30ca 1 three times J20. Omid Nguyen 12/26/2014 ps a day for ten 9 , for M.D. bronchitis Strattera 01/02/2014 - Hx Capsules 40mg 60ca 1 caps every 314. Omid Nguyen 06/15/2014 ps morning for 3 00 and then M.D. twice a day Strattera 09/23/2013 - Hx Capsules 25mg 60ca 1 by mouth 314. Giuliana, 09/23/2013 ps every morning 00 Boyd, x 3 days then M.D. increased to every morning and 12:30 p.m. Strattera 09/23/2013 - Hx Capsules 40mg 60ca 1 by mouth 314. Giuliana, 11/06/2013 ps every morning 00 Boyd, x 3 days M.D. single daily dose or 2 evenly divided doses (morning and noontime) No Active 07/20/2012 - Hx Unknown Medications 09/23/2013 Cortisporin-TC 06/14/2012 - Hx Suspension 3.3-3 5ml 4 gtt in ears 388. Erikacojimenez, 07/18/2012 -10-0 tid x 7 days 70 Boyd, .5mg/ M.D. ml No Active 11/07/2011 - Hx Unknown Medications 06/14/2012 Doxycycline 11/01/2011 - Hx Capsules 100mg 28ca 1 bid for 14 789. Omid Nguyen Hyclate 11/07/2011 ps days 03 Ken Patel Metronidazole 11/01/2011 - Hx Tablets 500mg 28ta 1 bid take 789. Omid Nguyen 11/01/2011 bs until gone 03 Ken Patel PT For Back And 06/06/2011 - Hx please 724. Erikacojimenez, Left Hip Pain 10/31/2011 evaluate and 5 camron Nix M.D. instruct in hep, modalities prn 719.45 Breast Pump 03/19/2011 - Hx 1units use to 676.24 Omid Nguyen Manual Or 06/17/2011 collect Ken Patel Electric breast milk Proair HFA 01/24/2011 - Hx Aerosol 108(9 8.500gm 2 puffs q4h 493.10 Silcoff, 10/21/2011 0Base prn for Ken Nix ) asthma mcg/a symptoms c 01/23/2011 - Hx Tablets one tab po Unknown Vitamins 10/31/2011 daily Immunizations CPT Code Status Date Vaccine Lot # U-[id number] Given 03/27/2017 Influenza,Unspecified [id number] Given 04/14/2015 Adacel or Boostrix, TDaP [id number] Refused 01/28/2016 Influenza Virus Vaccine, Quadrivalent, Split, Im Use Vital Signs Date Vital Result Comment 03/27/2017 BP Systolic 106 mmHg BP Diastolic 62 mmHg Heart Rate 84 /min Height 65.50 inches 5'5.50" Weight 109.00 lb BMI (Body Mass Index) 17.9 kg/m2 01/28/2016 BP Systolic 128 mmHg BP Diastolic 60 mmHg Body Temperature 98.4 F Height 65.5 inches 5'5.50" Weight 112.00 lb BMI (Body Mass Index) 18.4 kg/m2 10/27/2015 BP Systolic 92 mmHg BP Diastolic 50 mmHg Weight 109.00 lb 06/26/2015 BP Systolic 80 mmHg BP Diastolic 50 mmHg Weight 118.00 lb w/shoes 06/12/2015 BP Systolic 112 mmHg BP Diastolic 60 mmHg Heart Rate 70 /min Height 65.50 inches 5'5.50" Weight 115.00 lb BMI (Body Mass Index) 18.8 kg/m2 04/14/2015 BP Systolic 90 mmHg BP Diastolic 60 mmHg Weight 113.00 lb 04/06/2015 BP Systolic 100 mmHg BP Diastolic 60 mmHg Body Temperature 98.7 F Weight 113.00 lb w/shoes 12/16/2014 BP Systolic 110 mmHg BP Diastolic 70 mmHg Body Temperature 99.1 F Height 66.5 inches 5'6.50" with sneakers Weight 112.00 lb with sneakers BMI (Body Mass Index) 17.8 kg/m2 03/18/2014 BP Systolic 118 mmHg BP Diastolic 66 mmHg Heart Rate 70 /min reg Respiratory Rate 12 /min not laboured Weight 111.00 lb shoes & jacket on 01/02/2014 BP Systolic 102 mmHg BP Diastolic 70 mmHg Weight 103.00 lb 09/23/2013 BP Systolic 95 mmHg BP Diastolic 48 mmHg Heart Rate 66 /min Height 65.25 inches 5'5.25" Weight 108.00 lb BMI (Body Mass Index) 17.8 kg/m2 07/20/2012 BP Systolic 107 mmHg BP Diastolic 65 mmHg Heart Rate 58 /min Body Temperature 98.0 F Weight 107.00 lb 06/14/2012 BP Systolic 116 mmHg BP Diastolic 73 mmHg Heart Rate 73 /min Body Temperature 97.8 F Height 66 inches 5'6" Weight 107.00 lb BMI (Body Mass Index) 17.3 kg/m2 11/07/2011 BP Systolic 90 mmHg BP Diastolic 60 mmHg 11/01/2011 BP Systolic 88 mmHg BP Diastolic 62 mmHg Body Temperature 97.9 F Weight 114.00 lb Last Menstrual Period [id number] ended 10/20 wnl 06/06/2011 BP Systolic 110 mmHg BP Diastolic 70 mmHg Weight 110.00 lb 05/03/2011 BP Systolic 131 mmHg BP Diastolic 75 mmHg Heart Rate 72 /min Weight 112.00 lb 04/06/2011 Body Temperature 98.7 F Weight 112.00 lb Last Menstrual Period 0 01/24/2011 BP Systolic 110 mmHg BP Diastolic 60 mmHg Heart Rate 80 /min reg Respiratory Rate 16 /min Not Laboured Height 66 inches 5'6" Weight 135.00 lb BMI (Body Mass Index) 21.8 kg/m2 Last Menstrual Period [id number] Results Test Date Test Result H/L Range Note Comp Metabolic Panel 06/25/2016 Sodium 137 mmol/L 133-145 Potassium 3.6 mmol/L 3.5-5.0 Chloride 102 mmol/L 101-111 Co2 Carbon Dioxide 29 mmol/L 22-32 Anion Gap 6 mmol/L 2-11 Glucose 98 mg/dL 70-100 Blood Urea Nitrogen 15 mg/dL 6-24 Creatinine 0.79 mg/dL 0.51-0.95 BUN/Creatinine Ratio 19.0 8-20 Calcium 9.3 mg/dL 8.6-10.3 Total Protein 7.6 g/dL 6.4-8.9 Albumin 4.4 g/dL 3.2-5.2 Globulin 3.2 g/dL 2-4 Albumin/Globulin Ratio 1.4 1-3 Total Bilirubin 0.50 mg/dL 0.2-1.0 Alkaline Phosphatase 41 U/L 34-104 Alt 17 U/L 7-52 Ast 26 U/L 13-39 Egfr Non- 86.7 >60 Egfr 111.4 >60 1 Laboratory test finding 06/25/2016 Lipase 21 U/L 11.0-82.0 CRP High Sensitivity 1.22 mg/L 2 HCG < 0.60 mIU/mL 3 CBC Auto Diff 06/25/2016 White Blood Count 15.2 10^3/uL High 3.5-10.8 Red Blood Count 4.68 10^6/uL 4.0-5.4 Hemoglobin 13.0 g/dL 12.0-16.0 Hematocrit 40 % 35-47 Mean Corpuscular Volume 85 fL 80-97 Mean Corpuscular Hemoglobin 28 pg 27-31 Mean Corpuscular HGB Conc 33 g/dL 31-36 Red Cell Distribution Width 15 % 10.5-15 Platelet Count 182 10^3/uL 150-450 Mean Platelet Volume 10 um3 7.4-10.4 Abs Neutrophils 13.6 10^3/uL High 1.5-7.7 Abs Lymphocytes 1.0 10^3/uL 1.0-4.8 Abs Monocytes 0.5 10^3/uL 0-0.8 Abs Eosinophils 0.1 10^3/uL 0-0.6 Abs Basophils 0 10^3/uL 0-0.2 Abs Nucleated RBC 0.01 10^3/uL Granulocyte % 89.1 % High 38-83 Lymphocyte % 6.3 % Low 25-47 Monocyte % 3.5 % 1-9 Eosinophil % 0.8 % 0-6 Basophil % 0.3 % 0-2 Nucleated Red Blood Cells % 0.1 Urinalysis Profile 06/25/2016 Urine Color Yellow Urine Appearance Cloudy Urine Specific [place] 1.025 1.010-1.030 Urine pH 8.0 5-9 Urine Urobilinogen Negative Negative Urine Ketones Trace Negative Urine Protein 1+(30 mg/dL) Negative Urine Leukocytes Negative Negative Urine Blood Negative Negative Urine Nitrite Negative Negative Urine Bilirubin Negative Negative Urine Glucose Negative Negative Urine White Blood Cell Trace(0-5/hpf) Absent Urine Red Blood Cell Trace(0-2/hpf) Absent Urine Bacteria Absent Absent Urine Squamous Epithelial Cell Present Absent Laboratory test finding 06/14/2016 Rapid Strep Molecular Negative Negative 4 Rapid Influenza A & B 06/14/2016 Influenza A Molecular NEGATIVE Negative 5 Molecular Influenza B Molecular NEGATIVE Negative Urine Micro Inhouse 01/28/2016 Ua WBC - 6 Ua RBC - 6 Ua Casts - 6 Ua Epi - 6 Ua Other - 6 Ua Glucose - 6 Ua Bilirubin sm 6 Ua Ketones - 6 Ua Specific [place] 1.025 6 Ua Blood - 6 Ua PH 6.0 6 Ua Protein - 6 Ua Urobilinogen - 6 Ua Nitrite - 6 Ua Leukocytes - 6 Laboratory test finding 01/28/2016 Erythrocyte Sed Rate 12 mm/Hr 0-14 Basic Metabolic Panel 01/28/2016 Sodium 137 mmol/L 133-145 Potassium 4.0 mmol/L 3.5-5.0 Chloride 103 mmol/L 101-111 Co2 Carbon Dioxide 29 mmol/L 22-32 Anion Gap 5 mmol/L 2-11 Glucose 69 mg/dL Low 70-100 Blood Urea Nitrogen 8 mg/dL 6-24 Creatinine 0.79 mg/dL 0.51-0.95 BUN/Creatinine Ratio 10.1 8-20 Calcium 9.8 mg/dL 8.6-10.3 Egfr Non- 86.7 >60 Egfr 111.4 >60 7 Liver Function Panel 01/28/2016 Total Protein 7.1 g/dL 6.4-8.9 Albumin 4.5 g/dL 3.2-5.2 Globulin 2.6 g/dL 2-4 Albumin/Globulin Ratio 1.7 1-3 Total Bilirubin 0.30 mg/dL 0.2-1.0 Direct Bilirubin 0.10 mg/dL 0.03-0.18 Indirect Bilirubin 0.2 mg/dL Low 0.3-1.0 Alkaline Phosphatase 37 U/L 34-104 Alt 20 U/L 7-52 Ast 50 U/L High 13-39 CBC Auto Diff 01/28/2016 White Blood Count 6.8 10^3/uL 3.5-10.8 Red Blood Count 4.26 10^6/uL 4.0-5.4 Hemoglobin 12.4 g/dL 12.0-16.0 Hematocrit 37 % 35-47 Mean Corpuscular Volume 88 fL 80-97 Mean Corpuscular Hemoglobin 29 pg 27-31 Mean Corpuscular HGB Conc 33 g/dL 31-36 Red Cell Distribution Width 13 % 10.5-15 Platelet Count 172 10^3/uL 150-450 Mean Platelet Volume 11 um3 High 7.4-10.4 Abs Neutrophils 3.6 10^3/uL 1.5-7.7 Abs Lymphocytes 2.3 10^3/uL 1.0-4.8 Abs Monocytes 0.7 10^3/uL 0-0.8 Abs Eosinophils 0.2 10^3/uL 0-0.6 Abs Basophils 0 10^3/uL 0-0.2 Abs Nucleated RBC 0 10^3/uL Granulocyte % 53.1 % 38-83 Lymphocyte % 33.6 % 25-47 Monocyte % 10.1 % High 1-9 Eosinophil % 2.6 % 0-6 Basophil % 0.6 % 0-2 Nucleated Red Blood Cells % 0 Laboratory test finding 01/28/2016 TSH (Thyroid Stim Horm) 0.74 mcIU/mL 0.34-5.60 Xray 10/27/2015 X-Ray, Lumbosacral nl 8 Spine, 2 Or 3 Views X-Ray, Pelvis, 1 Or 2 Views nl 8 Laboratory test 08/26/2015 Rapid Strep Negative Negative 9 finding Molecular Laboratory test 08/26/2015 Rapid Strep A SEE RESULT BELOW 10 finding Laboratory test 06/17/2015 TSH (Thyroid Stim 0.43 ?IU/mL 0.34-5.60 finding Horm) Comp Metabolic Panel 06/17/2015 Sodium 138 mmol/L 133-145 Potassium 4.2 mmol/L 3.5-5.0 Chloride 104 mmol/L 101-111 Co2 Carbon Dioxide 27 mmol/L 22-32 Anion Gap 7 mmol/L 2-11 Glucose 85 mg/dL 70-100 Blood Urea Nitrogen 12 mg/dL 6-24 Creatinine 0.82 mg/dL 0.51-0.95 BUN/Creatinine Ratio 14.6 8-20 Calcium 9.5 mg/dL 8.6-10.3 Total Protein 7.2 g/dL 6.4-8.9 Albumin 4.6 g/dL 3.2-5.2 Globulin 2.6 g/dL 2-4 Albumin/Globulin Ratio 1.8 1-3 Total Bilirubin 0.50 mg/dL 0.2-1.0 Alkaline Phosphatase 36 U/L 34-104 Alt 14 U/L 7-52 Ast 25 U/L 13-39 Egfr Non- 83.6 >60 Egfr 107.5 >60 11 CBC Auto Diff 06/17/2015 White Blood Count 8.2 10^3/uL 3.5-10.8 Red Blood Count 4.19 10^6/uL 4.0-5.4 Hemoglobin 12.6 g/dL 12.0-16.0 Hematocrit 38 % 35-47 Mean Corpuscular Volume 92 fL 80-97 Mean Corpuscular Hemoglobin 30 pg 27-31 Mean Corpuscular HGB Conc 33 g/dL 31-36 Red Cell Distribution Width 14 % 10.5-15 Platelet Count 175 10^3/uL 150-450 Mean Platelet Volume 11 um3 High 7.4-10.4 Abs Neutrophils 5.4 10^3/uL 1.5-7.7 Abs Lymphocytes 2.1 10^3/uL 1.0-4.8 Abs Monocytes 0.6 10^3/uL 0-0.8 Abs Eosinophils 0.1 10^3/uL 0-0.6 Abs Basophils 0 10^3/uL 0-0.2 Abs Nucleated RBC 0 10^3/uL Granulocyte % 66.1 % 38-83 Lymphocyte % 24.9 % Low 25-47 Monocyte % 6.7 % 1-9 Eosinophil % 1.7 % 0-6 Basophil % 0.6 % 0-2 Nucleated Red Blood Cells % 0 Urine Drug Screen Inhouse 06/12/2015 Ua Cocaine - Ua Opiates - Ua Amphetamines - Urine Methanphetamines - Urine Benzodiazepines QN [place] - Urine Oxycodone QL - Order 04/06/2015 glucose, quantitative 89 12 inhouse Laboratory test 04/06/2015 Glucose Quantitative 89 finding Occult Blood,Triple 04/06/2015 Misc negative x3 CBC Auto Diff 04/03/2015 White Blood Count 10.9 10^3/uL High 3.5-10.8 Red Blood Count 4.38 10^6/uL 4.0-5.4 Hemoglobin 13.2 g/dL 12.0-16.0 Hematocrit 40 % 35-47 Mean Corpuscular Volume 91 fL 80-97 Mean Corpuscular Hemoglobin 30 pg 27-31 Mean Corpuscular HGB Conc 33 g/dL 31-36 Red Cell Distribution Width 13 % 10.5-15 Platelet Count 161 10^3/uL 150-450 Mean Platelet Volume 10 um3 7.4-10.4 Abs Neutrophils 6.6 10^3/uL 1.5-7.7 Abs Lymphocytes 3.1 10^3/uL 1.0-4.8 Abs Monocytes 0.9 10^3/uL High 0-0.8 Abs Eosinophils 0.3 10^3/uL 0-0.6 Abs Basophils 0.1 10^3/uL 0-0.2 Abs Nucleated RBC 0 10^3/uL Granulocyte % 60.1 % 38-83 Lymphocyte % 28.2 % 25-47 Monocyte % 8.5 % 1-9 Eosinophil % 2.6 % 0-6 Basophil % 0.6 % 0-2 Nucleated Red Blood Cells % 0 Laboratory test finding 04/03/2015 Lactic Acid 0.4 mmol/L Low 0.5-2.0 13 Comp Metabolic Panel 04/03/2015 Sodium 137 mmol/L 133-145 Potassium 3.6 mmol/L 3.5-5.0 Chloride 104 mmol/L 101-111 Co2 Carbon Dioxide 26 mmol/L 22-32 Anion Gap 7 mmol/L 2-11 Glucose 66 mg/dL Low 70-100 Blood Urea Nitrogen 19 mg/dL 6-24 Creatinine 0.91 mg/dL 0.51-0.95 BUN/Creatinine Ratio 20.9 High 8-20 Calcium 9.5 mg/dL 8.6-10.3 Total Protein 7.7 g/dL 6.4-8.9 Albumin 5.0 g/dL 3.2-5.2 Globulin 2.7 g/dL 2-4 Albumin/Globulin Ratio 1.9 1-3 Total Bilirubin 0.30 mg/dL 0.2-1.0 Alkaline Phosphatase 38 U/L 34-104 Alt 10 U/L 7-52 Ast 20 U/L 13-39 Egfr Non- 74.2 >60 Egfr 95.4 >60 14 Laboratory test finding 04/03/2015 Lipase 27 U/L 11.0-82.0 C Reactive Protein < 1.00 mg/L < 5.00 15 Troponin-I (TnI) 0.00 ng/mL <0.03 16 HCG < 0.60 mIU/mL 17 Xray 12/16/2014 X-Ray, Chest, 2 Views clear Comprehensive Metabolic Panel 09/25/2014 Glucose 98 mg/dL 74-106 BUN 10 mg/dL 7-18 Creatinine 1.0 mg/dL 0.6-1.3 Glom Filtration Rate, Estimate >60 mL/min >60 If >60 mL/min >60 18 BUN/Creat 10.0 ratio Sodium 137 mmol/L 136-145 Potassium 3.8 mmol/L 3.5-5.1 Chloride 106 mmol/L 98-107 Carbon Dioxide 24 mmol/L 21-32 Anion Gap 7 mEq/L Low 8-16 Calcium 8.8 mg/dL 8.5-10.1 Total Protein 7.4 g/dL 6.4-8.2 Albumin 3.9 g/dL 3.4-5.0 Globulin 3.5 g/dL 1.9-4.3 Alb/Glob 1.1 ratio Bilirubin,Total 0.3 mg/dL 0.2-1.0 Sgot/Ast 24 U/L 15-37 SGPT/Alt 22 U/L 12-78 Alkaline Phosphatase 47 U/L 45-117 CBC 09/25/2014 White Blood Count 10.9 K/uL High 3.1-10.7 Red Blood Count 4.21 M/uL 3.90-5.40 Hemoglobin 12.4 gm/dL 11.6-15.8 Hematocrit 37.7 % 36.0-46.1 Mean Cell Volume 89.5 fl 80.9-99.0 Mean Corpuscular HGB 29.5 pg 25.9-32.7 Mean Corpuscular HGB Conc 32.9 g/dL 30.8-34.3 Platelet Count 146 K/uL Low 155-360 Red Cell Distri Width %CV 14.1 % 11.7-14.4 Mean Platelet Volume 11.6 fL 8.9-12.4 Laboratory test 10/10/2013 D-Dimer, Quantitative < 0.22 ug/mL 19 finding Laboratory test 09/24/2013 TSH (Thyroid 0.62 IU/mL 0.34-5.60 finding Stimulating Horm) Throat-Beta Strept 08/30/2013 Throat Beta Strep NEGATIVE 20 Culture Laboratory test 06/04/2013 Urine HCG NEGATIVE Negative 21 finding (Qualitative) Urine Screen 06/04/2013 Urine Color YELLOW Yellow Urine Clarity CLEAR Clear Urine Glucose - Dipstick NEGATIVE mg/dL Negative Urine Bilirubin - Dipstick NEGATIVE Negative Urine Ketone TRACE mg/dL High Negative Urine Specific [place] 1.025 1.010-1.030 Urine Blood NEGATIVE Negative Urine PH 6.5 6.5-7.5 Urine Protein - Dipstick NEGATIVE mg/dL Negative Urine Urobilinogen - Dipstick 0.2 E.U./dL 0.2-1.0 Urine Nitrite - Dipstick NEGATIVE Negative Urine Leuk Esterase NEGATIVE Negative Chlamydia/GC Lissette, Urine 06/04/2013 Chlamydia Trachomatis,Ur Negative Negative -Lissette Neisseria Gonorrhoeae,Ur -Lissette Negative Negative Urine note: See Note 22 Urine Screen 04/12/2013 Urine Color YELLOW Yellow Urine Clarity CLEAR Clear Urine Glucose - Dipstick NEGATIVE mg/dL Negative Urine Bilirubin - Dipstick NEGATIVE Negative Urine Ketone NEGATIVE mg/dL Negative Urine Specific [place] >=1.030 1.010-1.030 Urine Blood NEGATIVE Negative Urine PH 5.5 Low 6.5-7.5 Urine Protein - Dipstick NEGATIVE mg/dL Negative Urine Urobilinogen - Dipstick 0.2 E.U./dL 0.2-1.0 Urine Nitrite - Dipstick NEGATIVE Negative Urine Leuk Esterase NEGATIVE Negative Drugs Of Abuse-Urine Screen 7 04/12/2013 Amphetamines (Urine) Negative Barbiturates (Urine) Negative Benzodiazepines (Urine) Negative Cannabinoids (Urine) Negative Cocaine Metabolite (Urine) Negative Methadone (Urine) Negative Opiates (Urine) Negative Urine Cutoffs * 23 Liver Function Tests 04/12/2013 Total Protein 7.0 g/dL 6.3-8.0 Albumin 3.6 g/dL 3.5-5.0 Globulin 3.4 g/dL 1.9-4.3 Alb/Glob 1.1 ratio Bilirubin,Total 0.2 mg/dL 0.2-1.2 Bilirubin,Direct < 0.1 mg/dL Low 0.1-0.4 Bilirubin,Indirect 0.1 mg/dL 0.0-0.9 Sgot/Ast 21 U/L 16-40 SGPT/Alt 14 U/L Low 30-65 Alkaline Phosphatase 43 U/L Low 50-136 Basic Metabolic Panel 04/12/2013 Glucose 153 mg/dL High 76-115 BUN 12 mg/dL 5-23 Creatinine 0.7 mg/dL 0.5-1.4 Glom Filtration Rate, Estimate >60 mL/min >60 If >60 mL/min >60 24 BUN/Creat 17.1 ratio Sodium 139 mmol/L 136-145 Potassium 3.3 mmol/L Low 3.5-5.1 Chloride 107 mmol/L 98-107 Carbon Dioxide 25 mEq/L 18-29 Anion Gap 10 mEq/L 8-16 Calcium 8.6 mg/dL 8.5-10.1 Laboratory test finding 04/12/2013 Lipase 128 U/L 28-380 HCG Serum, Qualitative NEGATIVE CBC W/Automated Diff 04/12/2013 White Blood Count 5.4 K/uL 3.1-10.7 Red Blood Count 3.98 M/uL 3.90-5.40 Hemoglobin 11.8 gm/dL 11.6-15.8 Hematocrit 34.7 % Low 36.0-46.1 Mean Cell Volume 87.2 fl 80.9-99.0 Mean Corpuscular HGB 29.6 pg 25.9-32.7 Mean Corpuscular HGB Conc 34.0 g/dL 30.8-34.3 Platelet Count 167 K/uL 155-360 Red Cell Distri Width SD 42.7 fl 3-47 Red Cell Distri Width %CV 13.7 % 11.7-14.4 Mean Platelet Volume 12.4 fL 8.9-12.4 Neut# 2.91 K/uL 1.0-7.0 Lymph # 1.67 K/uL 0.8-3.4 [place] # 0.63 K/uL 0.3-0.9 Eos # 0.11 K/uL 0.0-0.5 Baso # 0.03 K/uL 0.0-0.1 Differential WBC Confirm 04/12/2013 Total Cells Counted 100 #CELLS Band% 2 % 0-8 Neutrophils% 55 % 33-73 Lymph% 35 % 17-56 Atypical Lymph% 2 % 0-7 Monocyte% 3 % 0-10 Eosinophil% 2 % 0-5 Basophil% 1 % 0-2 Platelet Estimate NORMAL RBC Morphology NORMAL Throat-Beta Strept 01/19/2013 Throat Beta Strep Culture (SEE NOTE) 25 Liver Function Tests 07/20/2012 Total Protein 7.5 g/dL 6.3-8.0 Albumin 4.0 g/dL 3.5-5.0 Globulin 3.5 g/dL 1.9-4.3 Alb/Glob 1.1 ratio Bilirubin,Total 0.2 mg/dL 0.2-1.2 Bilirubin,Direct < 0.1 mg/dL Low 0.1-0.4 Bilirubin,Indirect 0.1 mg/dL 0.0-0.9 Sgot/Ast 16 U/L 16-40 SGPT/Alt 17 U/L Low 30-65 Alkaline Phosphatase 59 U/L 50-136 Basic Metabolic Panel 07/20/2012 Glucose 94 mg/dL 76-115 BUN 18 mg/dL 5-23 Creatinine 1.0 mg/dL 0.5-1.4 Glom Filtration Rate, Estimate >60 mL/min >60 If >60 mL/min >60 26 BUN/Creat 18.0 ratio Sodium 139 mmol/L 136-145 Potassium 4.0 mmol/L 3.5-5.1 Chloride 105 mmol/L 98-107 Carbon Dioxide 27 mEq/L 18-29 Anion Gap 11 mEq/L 8-16 Calcium 9.2 mg/dL 8.5-10.1 Laboratory test finding 07/20/2012 Lipase 186 U/L 28-380 CK 84 U/L 26-190 Troponin-I < 0.02 ng/mL 0.00-0.50 27 HCG Serum, Qualitative NEGATIVE CBS W/Automated Diff 07/20/2012 White Blood Count 8.8 K/uL 3.1-10.7 Red Blood Count 4.23 M/uL 3.90-5.40 Hemoglobin 12.4 gm/dL 11.6-15.8 Hematocrit 37.5 % 36.0-46.1 Mean Cell Volume 88.7 fl 80.9-99.0 Mean Corpuscular HGB 29.3 pg 25.9-32.7 Mean Corpuscular HGB Conc 33.1 g/dL 30.8-34.3 Platelet Count 174 K/uL 155-360 Red Cell Distri Width SD 41.6 fl 3-47 Red Cell Distri Width %CV 13.0 % 11.7-14.4 Mean Platelet Volume 12.3 fL 8.9-12.4 Neut% 53.2 % 40.4-72.8 Lymph % 36.5 % 17.0-46.1 [place] % 8.8 % 4.3-13.2 Eo% 0.9 % 0.0-6.6 Bas% 0.6 % 0.0-1.1 Neut# 4.66 K/uL 1.0-7.0 Lymph # 3.19 K/uL 0.8-3.4 [place] # 0.77 K/uL 0.3-0.9 Eos # 0.08 K/uL 0.0-0.5 Baso # 0.05 K/uL 0.0-0.1 Urine Screen 07/20/2012 Urine Color YELLOW Yellow Urine Clarity CLOUDY Clear Urine Glucose - Dipstick NEGATIVE mg/dL Negative Urine Bilirubin - Dipstick NEGATIVE Negative Urine Ketone NEGATIVE mg/dL Negative Urine Specific [place] 1.020 1.010-1.030 Urine Blood NEGATIVE Negative Urine PH 7.0 6.5-7.5 Urine Protein - Dipstick NEGATIVE mg/dL Negative Urine Urobilinogen - Dipstick 0.2 E.U./dL 0.2-1.0 Urine Nitrite - Dipstick NEGATIVE Negative Urine Leuk Esterase NEGATIVE Negative Laboratory test finding 11/02/2011 Erythrocyte Sed Rate 9 MM/HR 0-15 Basic Metabolic Panel 11/02/2011 Sodium 133 mmol/L Low 135-145 Potassium 4.3 mmol/L 3.5-5.0 Chloride 102 mmol/L 101-111 Co2 (Carbon Dioxide) 26.0 mmol/L 22-32 Anion Gap 5.0 mmol/L 2-11 28 Glucose 87 mg/dL 70-100 BUN 17 mg/dL 6-24 Creatinine 0.7 mg/dL 0.50-1.40 One Over Creatinine 1.42 BUN/Creatinine Ratio 24.3 High 8-20 Calcium 9.6 mg/dL 8.1-9.9 eGFR Non- 103.7 > 60 eGFR 133.4 > 60 29 Liver Function Panel 11/02/2011 Total Protein 7.2 GM/DL 6.2-8.1 Albumin 4.5 GM/DL 3.6-5.4 Globulin 2.7 GM/DL 2-4 Albumin/Globulin Ratio 1.7 1-3 Bilirubin Total 0.5 mg/dL 0.4-1.5 30 Bilirubin Direct 0.1 mg/dL 0.1-0.5 Indirect Bilirubin 0.4 mg/dL 0.3-1.0 31 Alkaline Phosphatase 47 U/L 30-110 Alt (SGPT) 15 U/L 14-54 Ast (Sgot) 22 U/L 12-42 CBC Auto Diff 11/02/2011 White Blood Count 8.2 CUMM 4.8-10.8 Red Cell Count 4.30 CUMM 4.2-5.4 Hemoglobin 13.1 g/dL 12.0-16.0 Hematocrit 38 % 35-47 Mean Corpuscular Volume 88 um3 79-97 Mean Corpuscular Hemoglob 30 pg 27-31 Mean Corpuscular HGB Cone 34 g/dL 32-36 Redcell Distribution WDTH 13 % 10.5-15 Platelet Count 167 CUMM 150-450 Mean Platelet Volume 10.8 um3 High 7.4-10.4 Gran % 55.0 % 38-83 Lymph % 37.3 % 20-45 Mononuclear % 6.0 % 1-9 Eosinophil % 1.4 % 0-6 Basophil % 0.3 % 0-2 Abs Lymphs 3.1 1.0-4.8 Abs Mononuclear 0.5 0-0.8 Absolute Neutrophil Count 4.5 1.5-7.7 Abs Eosinophils 0.1 0-0.6 Abs Basophils 0 0-0.2 GC/Chlamydia Aptima 11/01/2011 M <SEE 32, 33 NOTE> Laboratory test 11/01/2011 Genital Culture <SEE 34 , 35 finding NOTE> Laboratory test 11/01/2011 Test negative finding Urine Urine Micro Inhouse 11/01/2011 Ua WBC 2-3 Ua RBC - Ua Casts - Ua Epi 6-8 Ua Other - Ua Glucose - Ua Bilirubin - Ua Ketones - Ua Specific [place] 1.010 Ua Blood - Ua PH 6.5 Ua Protein tr Ua Urobilinogen - Ua Nitrite - Ua Leukocytes - CBC Auto Diff 08/06/2011 White Blood Count 9.0 CUMM 4.8-10.8 Red Cell Count 4.30 CUMM 4.2-5.4 Hemoglobin 13.2 g/dL 12.0-16.0 Hematocrit 38 % 35-47 Mean Corpuscular Volume 88 um3 79-97 Mean Corpuscular Hemoglob 31 pg 27-31 Mean Corpuscular HGB Cone 35 g/dL 32-36 Redcell Distribution WDTH 12 % 10.5-15 Platelet Count 213 CUMM 150-450 Mean Platelet Volume 9.8 um3 7.4-10.4 Gran % 51.9 % 38-83 Lymph % 36.1 % 25-47 Mononuclear % 9.3 % High 1-9 Eosinophil % 1.6 % 0-6 Basophil % 1.1 % 0-2 Abs Lymphs 3.2 1.0-4.8 Abs Mononuclear 0.8 0-0.8 Absolute Neutrophil Count 4.8 1.5-7.7 Abs Eosinophils 0.1 0-0.6 Abs Basophils 0.1 0-0.2 Laboratory test finding 08/06/2011 Lipase 35 U/L 22-51 (HCG) Serum NEGATIVE Negative 36 Comp Metabolic Panel 08/06/2011 Sodium 139 mmol/L 135-145 Potassium 3.9 mmol/L 3.5-5.0 Chloride 105 mmol/L 101-111 Co2 (Carbon Dioxide) 25.0 mmol/L 22-32 Anion Gap 9.0 mmol/L 2-11 37 Glucose 90 mg/dL 70-100 BUN 14 mg/dL 6-24 Creatinine 0.6 mg/dL 0.50-1.40 One Over Creatinine 1.66 BUN/Creatinine Ratio 23.3 High 8-20 Calcium 9.4 mg/dL 8.1-9.9 Total Protein 6.9 GM/DL 6.2-8.1 Albumin 4.0 GM/DL 3.6-5.4 Globulin 2.9 GM/DL 2-4 Albumin/Globulin Ratio 1.4 1-3 Bilirubin Total 0.5 mg/dL 0.4-1.5 38 Alkaline Phosphatase 42 U/L 30-110 Alt (SGPT) 14 U/L 14-54 Ast (Sgot) 23 U/L 12-42 eGFR Non- 123.9 > 60 eGFR 159.3 > 60 39 Urine Culture & 06/03/2011 M <SEE 40 Sensitivi NOTE> Urinalysis W/Microscopic 06/03/2011 Ua Color YELLOW Yellow Appearance-Urine CLEAR Clear Specific [place]-Ur 1.024 1.010-1.030 Esterase-Urine 1+ Negative Nitrite NEGATIVE Negative Bjttbfsbdbmb-Ty-DQN NEGATIVE Negative Protein-Urine NEGATIVE Negative PH-Urine 6.5 5-9 Blood-Urine NEGATIVE Negative Ketones-Urine NEGATIVE Negative Bilirubin-Ur NEGATIVE Negative Glucose-Urine NEGATIVE Negative WBC-Urine 5-10 0-5 RBC-Urine FEW 0-2 Epith Cells-Ur MANY None Bacteria-Urine 4+ None Laboratory test finding 04/06/2011 Culture Throat Rapid Screen neg Culture Throat neg 1 Because ethnic data is not always readily available, this report includes an eGFR for both -Americans and non- Americans. The National Kidney Disease Education Program (NKDEP) does not endorse the use of the MDRD equation for patients that are not between the ages of 18 and 70, are , have extremes of body size, muscle mass, or nutritional status, or are non- or non-. According to the National Kidney Foundation, irrespective of diagnosis, the stage of the disease is based on the level of kidney function: Stage Description GFR(mL/min/1.73 m(2)) 1 Kidney damage with normal or decreased GFR 90 2 Kidney damage with mild decrease in GFR 60-89 3 Moderate decrease in GFR 30-59 4 Severe decrease in GFR 15-29 5 Kidney failure <15 (or dialysis) 2 Low risk: <1.00 Average risk: 1.00-3.00 High risk: >3.00 3 <5.0 Negative 5.0 - 25.0 Indeterminate (Repeat testing recommended after 72 hours) >25.0 Positive Perimenopausal women can display HCG levels of up to 20 mIU/mL 4 Radio Station Manager: [id number] KARIMULLAH GULSHAD BAGUM 5 Radio Station Manager: [id number] KARIMULLAH GULSHAD BAGUM 6 void, clear, gold 7 Because ethnic data is not always readily available, this report includes an eGFR for both -Americans and non- Americans. The National Kidney Disease Education Program (NKDEP) does not endorse the use of the MDRD equation for patients that are not between the ages of 18 and 70, are , have extremes of body size, muscle mass, or nutritional status, or are non- or non-. According to the National Kidney Foundation, irrespective of diagnosis, the stage of the disease is based on the level of kidney function: Stage Description GFR(mL/min/1.73 m(2)) 1 Kidney damage with normal or decreased GFR 90 2 Kidney damage with mild decrease in GFR 60-89 3 Moderate decrease in GFR 30-59 4 Severe decrease in GFR 15-29 5 Kidney failure <15 (or dialysis) 8 sent out for reading 9 Radio Station Manager: [id number] Luke Zepeda Due to the increased sensitivity of molecular testing, reflex cultures are no longer performed. 10 SEE RESULT BELOW Name: PERRY CHAPIN : [address]: Reg Cooper MD Acct: [id number] Unit: [id number] AGE: 29 Location: ED Re08/26/15 SEX: F Status: REG ER SPEC: [id number] SENDY: 08/26/15 [facility] [address]: Reg Cooper MD REQ: [id number] RECD: 08/26/15 STATUS: SONY QUINN DR: Boyd Giordano MD _ SOURCE: THROAT SPDESC: ORDERED: Strep A Request Procedure Result Reported Site Rapid Strep A Request Final 08/26/15154 ML Specimen received for Rapid Strep A Molecular testing * ML - MAIN LAB ([facility]) . END OF REPORT * ML=Testing performed at Main Lab DEPARTMENT OF PATHOLOGY, [address] [place] [address] Aguila Dai M.D. Director [facility] # [id number] 11 Because ethnic data is not always readily available, this report includes an eGFR for both -Americans and non- Americans. The National Kidney Disease Education Program (NKDEP) does not endorse the use of the MDRD equation for patients that are not between the ages of 18 and 70, are , have extremes of body size, muscle mass, or nutritional status, or are non- or non-. According to the National Kidney Foundation, irrespective of diagnosis, the stage of the disease is based on the level of kidney function: Stage Description GFR(mL/min/1.73 m(2)) 1 Kidney damage with normal or decreased GFR 90 2 Kidney damage with mild decrease in GFR 60-89 3 Moderate decrease in GFR 30-59 4 Severe decrease in GFR 15-29 5 Kidney failure <15 (or dialysis) 12 last ate 1129 13 [facility] Severe Sepsis and Septic Shock Management Bundle Measure requires all lactic acids initially measuring >2.0mmol/L be repeated. 14 Because ethnic data is not always readily available, this report includes an eGFR for both -Americans and non- Americans. The National Kidney Disease Education Program (NKDEP) does not endorse the use of the MDRD equation for patients that are not between the ages of 18 and 70, are , have extremes of body size, muscle mass, or nutritional status, or are non- or non-. According to the National Kidney Foundation, irrespective of diagnosis, the stage of the disease is based on the level of kidney function: Stage Description GFR(mL/min/1.73 m(2)) 1 Kidney damage with normal or decreased GFR 90 2 Kidney damage with mild decrease in GFR 60-89 3 Moderate decrease in GFR 30-59 4 Severe decrease in GFR 15-29 5 Kidney failure <15 (or dialysis) 15 Acute inflammation: >10.00 16 Reference Range and Interpretation: TnI (ng/mL) Interpretation Less Than 0.03 ng/mL Not supportive of diagnosis of MN 0.03 - 0.50 ng/mL Indeterminate: suggest serial studies if clinically indicated. Greater than 0.5 ng/mL Consistent with diagnosis of MN 17 <5.0 Negative 5.0 - 25.0 Indeterminate (Repeat testing recommended after 72 hours) >25.0 Positive Perimenopausal women can display HCG levels of up to 20 mIU/mL 18 Note: Persistent reduction for 3 months or more in an eGFR <60 mL/min/1.73 m2 defines CKD. Patients with eGFR values >/=60 mL/min/1.73 m2 may also have CKD if evidence of persistent proteinuria is present. The original MDRD equation for estimated GFR is not valid for patients less than 18 years of age. Additional information may be found at www.kdoqi.org. 19 <=0.49 ug/mL - Low likelihood of DIC, DVT or Pulmonary Embolism >0.49 ug/mL - Additional testing should be done to rule out DIC, DVT, or Pulmonary embolism as clinically indicated. ([facility] has established a 97.89% negative predictive value for thrombotic disease when a cutoff value of 0.5 ug/mL is used.) 20 RUN DATE: 09/02/13 [facility] LAB LIVE PAGE 1 RUN TIME: [address] [place] [address] Specimen Inquiry Name: PERRY CHAPIN : [address]: Mary Lopez MD Acct: [id number] Unit: [id number] AGE: 27 Location: [facility] Re08/30/13 SEX: F Status: DEP ER SPEC: [id number] SENDY: 08/30/13-[address] [facility] [address]: Rolly CHOPRA REQ: [id number] RECD: 08/31/13 STATUS: SONY QUINN DR: Boyd Lopez MD _ SOURCE: THROAT SPDESC: ORDERED: Throat Beta Str Procedure Result Verified Site Throat Beta Strep Culture Final 09/02/13- 0814 ML Negative For Group A Beta Streptococcus END OF REPORT * ML=Testing performed at Main Lab DEPARTMENT OF PATHOLOGY, [address] [place] [address] Aguila Dai M.D. Director [facility] # [id number] 21 FIRST MORNING SPECIMENS GENERALLY CONTAIN THE HIGHEST CONCENTRATION OF HCG AND ARE RECOMMENDED FOR EARLY DETECTION OF . 22 Acceptable specimens for this test are male urethral swab, endocervical swab and liquid based pap specimens, vaginal swabs in APTIMA transports and first void urine. See online Directory of Services for test number for rectal and pharyngeal specimens. Performed at: RN - [facility] [address] [id number] Big Data Solutions Architect: Radha Villatoro MD, Phone: [phone] 23 *THE SUBMITTED URINE SPECIMEN WAS SCREENED AT THE LISTED [facility] CLASS INITIAL TEST LEVEL Amphetamines 1000 ng/mL Barbiturates 200 ng/mL Benzodiazepines 200 ng/mL Cannabinoids 50 ng/mL Cocaine Metabolite 300 ng/mL Methadone 300 ng/mL Opiates 300 ng/mL 24 Note: Persistent reduction for 3 months or more in an eGFR <60 mL/min/1.73 m2 defines CKD. Patients with eGFR values >/=60 mL/min/1.73 m2 may also have CKD if evidence of persistent proteinuria is present. The original MDRD equation for estimated GFR is not valid for patients less than 18 years of age. Additional information may be found at www.kdoqi.org. 25 RUN DATE: 01/23/13 [facility] LAB LIVE PAGE 1 RUN TIME: [address] [place] [address] Specimen Inquiry Name: PERRY CHAPIN : [address]: Joshua Queen MD Acct: [id number] Unit: [id number] AGE: 27 Location: [facility] Re01/19/13 SEX: F Status: DEP ER SPEC: [id number] SENDY: 01/19/[address] [facility] [address]: Joshua Queen MD REQ: [id number] RECD: 01/20/13 STATUS: SONY QUINN DR: Boyd Giordano MD _ SOURCE: THROAT SPDESC: ORDERED: Throat Beta Str Procedure Result Verified Site Throat Beta Strep Culture Final 01/23/13800 ML Organism 1 Negative Group A Strep END OF REPORT * ML=Testing performed at Main Lab DEPARTMENT OF PATHOLOGY, [address] [place] [address] Aguila Dai M.D. Director [facility] Permit #[id number] 26 Note: Persistent reduction for 3 months or more in an eGFR <60 mL/min/1.73 m2 defines CKD. Patients with eGFR values >/=60 mL/min/1.73 m2 may also have CKD if evidence of persistent proteinuria is present. The original MDRD equation for estimated GFR is not valid for patients less than 18 years of age. Additional information may be found at www.kdoqi.org. 27 0 - 0.5 ng/mL: No evidence of myocardial injury 0.6 - 1.4 ng/mL: Mild elevation, suggesting possible myocardial injury > 1.4 ng/mL: Consistent with myocardial injury 28 Anion gap measurement may be of limited value in the presence of any alkalosis, especially in a combined acid base disorder. . 29 Because ethnic data is not always readily available, this report includes an eGFR for both -Americans and non- Americans. The National Kidney Disease Education Program (NKDEP) does not endorse the use of the MDRD equation for patients that are not between the ages of 18 and 70, are , have extremes of body size, muscle mass, or nutritional status, or are non- or non-. According to the National Kidney Foundation, irrespective of diagnosis, the stage of the disease is based on the level of kidney function: Stage Description GFR(mL/min/1.73 m(2)) 1 Kidney damage with normal or decreased GFR 90 2 Kidney damage with mild decrease in GFR 60-89 3 Moderate decrease in GFR 30-59 4 Severe decrease in GFR 15-29 5 Kidney failure <15 (or dialysis) 30 A metabolite of Naproxen, O-desmethylnaproxen, has been shown to interfere with the [place] method for measuring total bilirubin. Samples from patients who have taken Naproxen have shown spurious elevation in total bilirubin levels. 31 Please note updated reference range, effective 10/08/09 32 negative 33 RUN DATE: 11/03/11 [facility] NMI LIVE PAGE 1 RUN TIME: 2040 Specimen Inquiry RUN USER: INTERFACE Name: PERRY CHAPIN Status: REG REF Re11/01/11 Age/Sex: 25/F Unit#: [id number] Location: [facility] : [birth year] SPEC #: [id number] SENDY: 11/01/11 STATUS: COMP REQ #: [id number] RECD: 11/02/[address]: Amanda SARABIA,Omid Nguyen SOURCE: THIN PREP ENTR: 11/02/11-1154 [facility] DR: ISSAC: ORDERED: GC/CHL APTIMA QUERIES: MEDENT REQUISITION # [id number] ACT WKST: GCCHL 11/03/11 #1 Procedure Result Verified Site > CHLAMYDIA TRACHOMATIS RNA Final -2038 ML NEGATIVE FOR CHLAMYDIA TRACHOMATIS rRNA A negative result does not preclude the presence of a C.trachomatis or N.gonorrhoeae infection because results are dependent on adequate specimen collection, absence of inhibitors, and sufficient rRNA to be detected. Test results may be affected by improper specimen collection, improper specimen storage, technical error, or specimen mixup. Limitations of the Procedure: The Aptima Combo 2 Assay is not intended for the evaluation of suspected sexual abuse or for other medico-legal indications. For those patients for whom a false positive result may have adverse psychosocial impact, the CDC recommends retesting by a method using an alternate technology. Therapeutic failure or success cannot be determined with the Aptima Combo 2 Assay since nucleic acid may persist following appropriate antimicrobial therapy. Results from the APTIMA Combo 2 Assay should be interpreted in conjunction with other laboraotry and clinical data available to the clinician. Performance characteristics for detecting C. trachomatis and N. gonorrhoeae are derived from high prevalence populations. Positive results in low prevalence populations should be interpreted carefully with the understanding that the likelihood of a false positive may be higher than a true positive. DEPARTMENT OF PATHOLOGY, [address] [place] [address] [facility] Permit #[id number] Aguila Dai M.D. Director Lady Roman M.D. Event Planner RUN DATE: 11/03/11 [facility] NMI LIVE PAGE 2 RUN TIME: 2039 Specimen Inquiry RUN USER: INTERFACE Name: SOHAILPERRY E Accpao#: [id number] Status: REG REF Re11/01/11 Age/Sex: 25/F Unit#: [id number] Location: [facility] : [birth year] -- -- CONTINU ED Procedure Result Verified Site > GC (N. GONORRHOEAE) RNA Final -2038 ML NEGATIVE FOR NEISSERIA GONORRHOEAE rRNA A negative result does not preclude the presence of a C.trachomatis or N.gonorrhoeae infection because results are dependent on adequate specimen collection, absence of inhibitors, and sufficient rRNA to be detected. Test results may be affected by improper specimen collection, improper specimen storage, technical error, or specimen mixup. Limitations of the Procedure: The Aptima Combo 2 Assay is not intended for the evaluation of suspected sexual abuse or for other medico-legal indications. For those patients for whom a false positive result may have adverse psychosocial impact, the CDC recommends retesting by a method using an alternate technology. Therapeutic failure or success cannot be determined with the Aptima Combo 2 Assay since nucleic acid may persist following appropriate antimicrobial therapy. Results from the APTIMA Combo 2 Assay should be interpreted in conjunction with other laboraotry and clinical data available to the clinician. Performance characteristics for detecting C. trachomatis and N. gonorrhoeae are derived from high prevalence populations. Positive results in low prevalence populations should be interpreted carefully with the understanding that the likelihood of a false positive may be higher than a true positive. [facility] Permit #[id number] [address] [place] [address] DEPARTMENT OF PATHOLOGY, [address] [place] [address] [facility] Permit #[id number] Ken Trinidad M.D. Event Planner 34 nl cricket 35 RUN DATE: 11/04/11 [facility] NMI LIVE PAGE 1 RUN TIME: 29 Specimen Inquiry RUN USER: INTERFACE Name: PERRY CHAPIN Status: REG REF Re11/01/11 Age/Sex: 25/F Unit#: [id number] Location: [facility] : [birth year] SPEC #: [id number] SENDY: 11/01/11 STATUS: COMP REQ #: [id number] RECD: 11/02/[address] [facility] [address]: Amanda SARABIA,Omid Nguyen SOURCE: GENITAL ENTR: 11/02/[address] [address]: ISSAC: CERV/VAG ORDERED: GENITAL CULTURE QUERIES: MEDENT REQUISITION # [id number] ACT WKST: B 11/04/11 #1 Procedure Result Verified Site > GENITAL CULTURE Final -0903 ML NORMAL GENITAL CRICKET ML - [facility] Permit #[id number] [facility] [place]Dial [place] [address] DEPARTMENT OF PATHOLOGY, [facility] Mobile Armor [place] [address] [facility] Permit #[id number] Aguila Dai M.D. Director Lady Roman M.D. Event Planner 36 If is still suspected, please repeat test after 48 to 72 hours. . This test detects intact HCG only and is indicated for the early detection of . 37 Anion gap measurement may be of limited value in the presence of any alkalosis, especially in a combined acid base disorder. . 38 A metabolite of Naproxen, O-desmethylnaproxen, has been shown to interfere with the Jenjovana-Omar method for measuring total bilirubin. Samples from patients who have taken Naproxen have shown spurious elevation in total bilirubin levels. 39 Because ethnic data is not always readily available, this report includes an eGFR for both -Americans and non- Americans. The National Kidney Disease Education Program (NKDEP) does not endorse the use of the MDRD equation for patients that are not between the ages of 18 and 70, are , have extremes of body size, muscle mass, or nutritional status, or are non- or non-. According to the National Kidney Foundation, irrespective of diagnosis, the stage of the disease is based on the level of kidney function: Stage Description GFR(mL/min/1.73 m(2)) 1 Kidney damage with normal or decreased GFR 90 2 Kidney damage with mild decrease in GFR 60-89 3 Moderate decrease in GFR 30-59 4 Severe decrease in GFR 15-29 5 Kidney failure <15 (or dialysis) 40 RUN DATE: 06/05/11 [facility] NMI LIVE PAGE 1 RUN TIME: 1027 Specimen Inquiry RUN USER: INTERFACE Name: PERRY CHAPIN#: [id number] Status: DEP ER Re06/03/11 Age/Sex: 25/F Unit#: [id number] Location: [facility] : 89 SPEC #: [id number] SENDY: 06/03/11 STATUS: COMP REQ #: [id number] RECD: 06/03/[address] [facility] [address]: Dank SARABIA,Edda Gonzales SOURCE: URINE ENTR: 06/03/11 [facility] DR: Claudia Eng RPA SPDESC: Boyd Giordano MD ORDERED: URINE C S ACT WKST: UR 06/05/11 #1 Procedure Result Verified Site > URINE CULTURE SENSITIVI Final -1027 ML SCANT NORMAL URETHRAL OR PERINEAL CRICKET ML - [facility] Permit #[id number] [address] [place] [address] DEPARTMENT OF PATHOLOGY, [address] [place] [address] [facility] Permit #[id number] Aguila Dai M.D. Director Lady Roman M.D. Event Planner Procedures Date CPT Code Description Status 10/27/2015 22013 X-Ray Pelvis, Ap Only Completed 10/27/2015 89516 X-Ray, L-S Spine, Ap & Lateral Completed 12/16/2014 04748 X-Ray Chest Two Views Completed Encounters Type Date Location Provider CPT E/M Dx Office Visit 03/27/2017 3:40p Main Office Christianne Casey 95742 M54.5 M54.32 R63.4 Office Visit 01/28/2016 9:45a Main Office Omid Patel M.D. 74891 R10.11 R10.13 Z71.89 Office Visit 10/27/2015 4:30p Main Office Omid Patel M.D. 82029 M54.5 G47.30 M25.651 R06.83 Office Visit 06/26/2015 3:25p Main Office Omid Patel M.D. 61752 F90.0 Office Visit 06/12/2015 3:00p Main Office Omid Patel M.D. 57621 F90.0 Z79.899 Z51.81 Office Visit 04/14/2015 4:15p Main Office Omid Patel M.D. 42095 L84 Y04.1xxA R12 K29.00 Z71.89 Z23 Z41.8 Office Visit 04/06/2015 2:00p Main Office Omid Patel M.D. 90741 K29.00 R12 E16.2 Z71.6 Office Visit 12/16/2014 4:00p Main Office Omid Patel M.D. 80746 R05 J20.9 Office Visit 03/18/2014 2:45p Main Office Boyd Giordano M.D. 17079 786.50 747.32 465.9 388.70 381.81 Office Visit 01/02/2014 3:00p Main Office Kymberly BeachRODRIGO-C 27123 314.00 786.59 747.32 Office Visit 09/23/2013 4:00p Main Office Christianne Casey 71796 314.00 Office Visit 07/20/2012 4:20p Main Office Christianne Casey 60906 747.32 Office Visit 06/14/2012 1:20p Main Office Christianen Casey 51303 388.70 465.9 461.1 305.1 Office Visit 11/07/2011 4:00p Main Office Omid Patel M.D. 85608 789.03 Office Visit 11/01/2011 3:45p Main Office Omid Patel M.D. 53225 789.03 615.9 789.63 V72.41 Office Visit 06/06/2011 11:00a Main Office Boyd Giordano M.D. 75282 724.5 719.45 Office Visit 05/03/2011 1:20p Main Office Christianne Casey 20099 462 Office Visit 04/06/2011 2:30p Main Office Boyd Giordano M.D. 71810 462 784.0 780.4 Office Visit 01/24/2011 2:00p Main Office Boyd Giordano M.D. 11399 V22.2 493.10 300.00 305.1 Plan of Care 03/27/2017 - Christianne CaseyM54.5 Low back painNew Medication:Elastic Back LywnoffP84.32 Sciatica, left sideNew Medication:Prednisone 10 mg (21)Tizanidine HCL 4 mgFollow up:ice 20 minutes 2-3 times a day, heat 20 minutes up to 3 times a day can try Aspercreme: with salicylic acid in itR63.4 Abnormal weight lossComments:no concerns with diet. will see what labs say and cont monitoring
[2017-04-01 21:04] LABS: Urine Appearance Cloudy; Urine Blood Negative (Negative); Urine Color Yellow; Urine Ketones 1+ (Negative); Urine Protein 1+(30 mg/dL) (Negative); Urine Urobilinogen Negative (Negative)
[2017-04-01 21:11] LABS: ABS Basophils 0 10^3/ul (0-0.2); ABS Eosinophils 0.1 10^3/ul (0-0.6); ABS Lymphocytes 1.8 10^3/ul (1.0-4.8); ABS Monocytes 0.6 10^3/ul (0-0.8); ABS Neutrophils 4.9 10^3/ul (1.5-7.7); ABS Nucleated RBC 0 10^3/ul; Hematocrit 36 % (35-47); Hemoglobin 12.3 g/dl (12.0-16.0); Mean Corpuscular HGB Conc 34 g/dl (31-36); Mean Corpuscular Hemoglobin 30 pg (27-31); Mean Corpuscular Volume 87 fL (80-97); Mean Platelet Volume 10 um3 (7.4-10.4); Nucleated Red Blood Cells % 0; Platelet Count 172 10^3/ul (150-450); Red Blood Count 4.14 10^6/ul (4.0-5.4); Red Cell Distribution Width 14 % (10.5-15); White Blood Count 7.3 10^3/ul (3.5-10.8)
--- NOTE | 2017-04-01 21:22 | ED ---
Psychiatric Complaint - HPI Summary HPI Summary: 31 female presents to ED with significant other with complaints of depression, anxiety and having suicidal thoughts for the past week. Patient states her depression/anxiety stems from her past however she has been having recent increased stress lately that has caused her to having suicidal thoughts. States she has never had these feelings to this extent in the past. States she does not have a plan however believes she would be better off if she was . Denies any self harm. Denies homicidal thoughts. No other complaints at this time. Admits to being diagnosed with borderline personality and ADHD however does not take any medication. Has previously prescribed adderall. Denies recent alcohol or drug use. Does have history 2+ years ago. Admits to possibly having auditory/visual hallucinations, unsure if it was just dreaming or not. No other PMHx. No medications. Has been experiencing loss of appetite and sleep disturbance. No outpatient counseling. States she went to [facility] [place] who could not get her in as a new patient until Monday. Has started back up using cigarettes - History Of Current Complaint Chief Complaint: EDMentalHealth Hx Obtained From: Patient, Family/Aws Architect - significant other Hx Last Menstrual Period: 10/12/16 Onset/Duration: Gradual Onset, Lasting Weeks, Still Present, Worse Since Timing: Constant Severity Initially: Mild Severity Currently: Moderate Character: Depressed, Frustrated Aggravating Factor(s): Recent Stress Alleviating Factor(s): Nothing Associated Signs And Symptoms: Positive: Sleep Disturbance, Appetite Change Related History: Positive For: Prior Psychiatric Issues Has Suicidal: Reports: Thoughts. Denies: With A Plan, Demonstrates Gesture, Has Prior Attempt(s) Has Homicidal: Denies: Thoughts, With A Plan Recent Stressor(s): relationship, children, past - Allergies/Home Medications Allergies/Adverse Reactions: Allergies Allergy/AdvReac Type Severity Reaction Status Date / Time Adhesive Tape Allergy Mild Rash And Verified 10/24/16 16:57 Itching Aspirin [From Coricidin] Allergy Unknown Unknown Verified 10/24/16 16:57 Reaction Details Chlorpheniramine Allergy Unknown Unknown Verified 10/24/16 16:57 [From Coricidin] Reaction Details Diphenhydramine Allergy Unknown Verified 10/24/16 16:57 [From Benadryl] Reaction Details Flu Virus Vaccine Allergy See Comment Verified 10/24/16 16:57 PMH/Surg Hx/FS Hx/Imm Hx Endocrine/Hematology History: Denies: Hx Diabetes, Hx Thyroid Disease Cardiovascular History: Denies: Hx Hypertension, Hx Pacemaker/ICD Respiratory History: Reports: Hx Asthma Denies: Hx Chronic Obstructive Pulmonary Disease (COPD) GI History: Denies: Hx Ulcer Sensory History: Denies: Hx Hearing Aid Psychiatric History: Reports: Hx Panic Disorder - Surgical History Surgery Procedure, Year, and Place: EAR TUBES A CHILD - Immunization History Date of Tetanus Vaccine: utd Date of Influenza Vaccine: no Infectious Disease History: No Infectious Disease History: Denies: Hx Clostridium Difficile, Hx Hepatitis, Hx Human Immunodeficiency Virus (HIV), Hx of Known/Suspected MRSA, Hx Shingles, Hx Tuberculosis, Hx Known/ Suspected VRE, Hx Known/Suspected VRSA, History Other Infectious Disease, Traveled Outside the in Last 30 Days - Family History Known Family History: Positive: None, Diabetes, Respiratory Disease - COPD, Other - CA - Social History Alcohol Use: None Hx Substance Use: No Substance Use Type: Reports: None Hx Tobacco Use: Yes Smoking Status (MU): Current Some Day Smoker Type: Cigarettes Amount Used/How Often: 1/2-1PPD Length of Time of Smoking/Using Tobacco: 7 YEARS Have You Smoked in the Last Year: Yes Review of Systems Constitutional: Negative Cardiovascular: Negative Respiratory: Negative Skin: Negative Positive: Depressed, Other - suicidal ideation All Other Systems Reviewed And Are Negative: Yes Physical Exam Triage Information Reviewed: Yes Vital Signs On Initial Exam: Initial Vitals Temp Pulse Resp BP Pulse Ox 97.7 F 76 18 159/93 100 04/01/17 20:09 04/01/17 20:09 04/01/17 20:09 04/01/17 20:09 04/01/17 20:09 Vital Signs Reviewed: Yes Appearance: Positive: Well-Appearing, No Pain Distress, Well-Nourished Skin: Positive: Warm, Skin Color Reflects Adequate Perfusion, Dry. Negative: Cold, Cyanosis @, Pale, Erythema @ Head/Face: Positive: Normal Head/Face Inspection Eyes: Positive: EOMI, LUPE, Conjunctiva Clear ENT: Positive: Normal ENT inspection, Hearing grossly normal, Pharynx normal Neck: Positive: Supple, Nontender Respiratory/Lung Sounds: Positive: Clear to Auscultation, Breath Sounds Present. Negative: Rales, Rhonchi Cardiovascular: Positive: Normal, RRR, Pulses are Symmetrical in both Upper and Lower Extremities. Negative: Murmur, Rub Bowel Sounds: Positive: Present Musculoskeletal: Positive: Normal, Strength/ROM Intact Neurological: Positive: Normal, Sensory/Motor Intact, Alert, Oriented to Person Place, Time Psychiatric: Positive: Anxious, Depressed - [place] Coma Scale Best Eye Response: 4 - Spontaneous Best Motor Response: 6 - Obeys Commands Best Verbal Response: 5 - Oriented Coma Scale Total: 15 Diagnostics - Vital Signs Vital Signs Temp Pulse Resp BP Pulse Ox 04/01/17 20:09 97.7 F 76 18 159/93 100 - Laboratory Lab Results: Lab Results 04/01/17 04/01/17 Range/Units 20:47 21:00 WBC 7.3 (3.5-10.8) 10^3/ul RBC 4.14 (4.0-5.4) 10^6/ul Hgb 12.3 (12.0-16.0) g/dl Hct 36 (35-47) % MCV 87 (80-97) fL MCH 30 (27-31) pg MCHC 34 (31-36) g/dl RDW 14 (10.5-15) % Plt Count 172 (150-450) 10^3/ul MPV 10 (7.4-10.4) um3 Neut % (Auto) 66.5 (38-83) % Lymph % (Auto) 24.0 L (25-47) % [place] % (Auto) 7.9 (1-9) % Eos % (Auto) 1.0 (0-6) % Baso % (Auto) 0.6 (0-2) % Absolute Neuts (auto) 4.9 (1.5-7.7) 10^3/ul Absolute Lymphs (auto) 1.8 (1.0-4.8) 10^3/ul Absolute Monos (auto) 0.6 (0-0.8) 10^3/ul Absolute Eos (auto) 0.1 (0-0.6) 10^3/ul Absolute Basos (auto) 0 (0-0.2) 10^3/ul Absolute Nucleated RBC 0 10^3/ul Nucleated RBC % 0 Urine Color Yellow Urine Appearance Cloudy Urine pH 5.0 (5-9) Ur Specific [place] 1.030 (1.010-1.030) Urine Protein 1+(30 mg/dl) H (Negative) Urine Ketones 1+ H (Negative) Urine Blood Negative (Negative) Urine Nitrate Negative (Negative) Urine Bilirubin Negative (Negative) Urine Urobilinogen Negative (Negative) Ur Leukocyte Esterase Trace H (Negative) Urine WBC (Auto) Trace(0-5/hpf) (Absent) Urine RBC (Auto) Trace(0-2/hpf) (Absent) Ur Squamous Epith Cells Present H (Absent) Urine Bacteria Absent (Absent) Urine Glucose Negative (Negative) Result Diagrams: 04/01/17 21:00 04/01/17 21:00 Lab Statement: Any lab studies that have been ordered have been reviewed, and results considered in the medical decision making process. Course/Dx - Course Course Of Treatment: normal physical exam and vital signs. appears to be suffering from depression/anxiety and suicidal ideation. labs and urinalysis obtained. potassium was slightly low at 3.0 given oral 40meq. patient has not been eating normally due to loss of appetitie. normal and without acute findings. does not appear to be medical in etiology. was clear for mental health eval. spoke with NENA and states Dr Ivey will admit the patient with diagnosis of unspecified mood disorder. - Differential Dx/Clinical Impression Differential Diagnosis/HQI/PQRI: Positive: Anxiety, Depression, Suicidal Ideation Provider Diagnosis: Depression, Suicidal ideation, Unspecified mood [affective] disorder - Physician Notifications Discussed Care Of Patient With: Dr NENA Instructed by Provider To: Admit As Inpatient Patient Is Medically Stable For: Psych Evaluation Discharge - Discharge Plan Condition: Stable Disposition: PSYCHIATRIC FACILITY-[facility] [place] Referrals: Omid Patel MD [Primary Care Provider] -
[2017-04-01] MEDS ORDERED: Potassium Chlor TAB* 20 MEQ TAB.ER PO ONE (21:45)
[2017-04-02] MEDS ORDERED: Acetaminophen TAB* 325 MG PO PRN (05:30)
[2017-04-02] MEDS ORDERED: Nicotine GUM* 2 MG PO PRN (05:30)
[2017-04-02] MEDS ORDERED: Nicotine Inhaler* 10 MG AMP INH PRN (05:30)
[2017-04-02] MEDS ORDERED: Mouth Piece, Nicotine* 1 EACH CARTRIDGE INH SCH (05:30)
[2017-04-02] MEDS ORDERED: Al Hydrox/Mg Hydrox/Simet LIQ* 30 ML UDC PO PRN (05:30)
[2017-04-02] MEDS ORDERED: Albuterol HFA INHALER* 8 gm MDI INH PRN (05:31)
[2017-04-02 08:06] VITALS: BP 106/61
[2017-04-02] MEDS: Vitamin THERAPEUTIC TAB PO SCH (10:44)
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
[2017-04-03] MEDS: Vitamin THERAPEUTIC TAB PO SCH (08:32)
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
== END 2017-04-03 14:34 | disposition home or self-care (01) | DRG 753 ==
LOC: ED 20:03 → BSU 04-02 01:33
PROVIDERS: ADMIT Psychiatry & Neurology Psychiatry; ATTEND Psychiatry & Neurology Psychiatry
DX: F32.81 Premenstrual dysphoric disorder (principal); F10.10 Alcohol abuse, uncomplicated; F41.1 Generalized anxiety disorder; Y90.0 Blood alcohol level of less than 20 mg/100 ml; F17.210 Nicotine dependence, cigarettes, uncomplicated; F90.9 Attention-deficit hyperactivity disorder, unspecified type; F10.21 Alcohol dependence, in remission; Z81.8 Family history of other mental and behavioral disorders; Z81.3 Family history of other psychoactive substance abuse and dependence
CPT/HCPCS: 36415; 80053; 80307; 80320; 80329; 81003; 81015; 83735; 84443; 85025; 87086; 99222; 99238; 99285; A9270-GY; G0480

== ENCOUNTER 2017-06-01 20:33 | Emergency (ER) | payer OTHER ==
[2017-06-01 20:41] VITALS: BP 114/74
--- NOTE | 2017-06-01 22:04 | UC ---
FLU HPI - HPI Summary HPI Summary: Patient is an otherwise healthy 31-year-old female presenting to the urgent care with chief complaint of fevers, sweats, chills, cough, congestion, and sore throat 2 days. Denies any sick contacts. Has not taken anything for relief. Endorses cough without production. Denies weakness. Endorses myalgias. Immunizations are up-to-date. - History of Current Complaint Chief Complaint: UCRespiratory Stated Complaint: THROAT PAIN Time Seen by Provider: 06/01/17 21:09 Hx Obtained From: Patient Hx Last Menstrual Period: one month ago ?: No Onset/Duration: Sudden Onset Severity Currently: Moderate Severity Initially: Moderate Pain Intensity: 2 Pain Scale Used: 0-10 Numeric Associated Signs & Symptoms: Positive: Fever, T Max, F/C, Myalgia Related Hx: Possible Flu/Infectious Exposure - Allergy/Home Medications Allergies/Adverse Reactions: Allergies Allergy/AdvReac Type Severity Reaction Status Date / Time Adhesive Tape Allergy Mild Rash And Verified 06/01/17 20:44 Itching MS Aspirin [From Coricidin] Allergy Unknown Unknown Verified 06/01/17 20:44 Reaction Details acetaminophen Allergy Airway Verified 06/01/17 20:44 [From Coricidin] Obstruction chlorpheniramine Allergy Airway Verified 06/01/17 20:44 [From Coricidin] Obstruction diphenhydramine Allergy Unknown Verified 06/01/17 20:44 [From Benadryl] Reaction Details MS Flu Virus Vaccine Allergy See Comment Verified 06/01/17 20:44 [Flu Virus Vaccine] phenylpropanolamine Allergy Airway Verified 06/01/17 20:44 [From Coricidin] Obstruction PMH/Surg Hx/FS Hx/Imm Hx Previously Healthy: Yes - R - Surgical History Surgical History: Yes Surgery Procedure, Year, and Place: EAR TUBES A CHILD - Family History Known Family History: Positive: None, Diabetes, Respiratory Disease - COPD, Other - [place] - Social History Alcohol Use: None Alcohol Amount: Sober for approximately 2 years Substance Use Type: None Smoking Status (MU): Current Some Day Smoker Type: Cigarettes Amount Used/How Often: Had quit smoking for 10 weeks; smoked 5 cigarettes yesteday Length of Time of Smoking/Using Tobacco: 7 YEARS Have You Smoked in the Last Year: Yes - Immunization History Most Recent Influenza Vaccination: this season Most Recent Pneumonia Vaccination: none Review of Systems Constitutional: Negative Skin: Negative ENT: Sore Throat, Ear Ache Respiratory: Cough Cardiovascular: Negative Motor: Negative Musculoskeletal: Myalgia Neurological: Negative Psychological: Negative Is Patient Immunocompromised?: No All Other Systems Reviewed And Are Negative: Yes Physical Exam Triage Information Reviewed: Yes Appearance: Ill-Appearing Vital Signs: Initial Vital Signs Temp 100.9 F 06/01/17 20:38 Pulse 102 06/01/17 20:38 Resp 18 06/01/17 20:38 BP 114/74 06/01/17 20:38 Pulse Ox 100 06/01/17 20:38 Vital Signs Reviewed: Yes Eye Exam: Normal Eyes: Positive: Conjunctiva Clear ENT: Positive: Pharynx normal. Negative: Pharyngeal erythema, Nasal congestion , Nasal drainage, TM bulging, TM dull, TM red, Tonsillar swelling, Tonsillar exudate, Muffled voice, Hoarse voice Neck exam: Normal Neck: Positive: Supple, No Lymphadenopathy Respiratory Exam: Normal Respiratory: Positive: Chest non-tender, Lungs clear Cardiovascular Exam: Normal Cardiovascular: Positive: RRR Musculoskeletal Exam: Normal Musculoskeletal: Positive: Strength Intact Neurological Exam: Normal Neurological: Positive: Alert Psychological: Positive: Normal Response To Family Skin Exam: Normal Flu Course/Dx - Course Course Of Treatment: Patient is evaluated for influenza-like symptoms. Influenza and strep swab obtained and are both negative. She is given supportive care. I have given her prednisone once daily 5 days for sore throat and mild shortness of breath. She is okay with plan and discharged she will follow up with PCP for any worsening symptoms. - Differential Dx/Diagnosis Provider Diagnoses: URI Discharge - Discharge Plan Condition: Stable Disposition: HOME Prescriptions: predniSONE TAB* [Deltasone TAB*] 50 mg PO DAILY #5 tab Patient Education Materials: Fever in Adults (ED) Referrals: Omid Patel MD [Primary Care Provider] - Additional Instructions: Tylenol and ibuprofen intermittently every 3 hours See [id number] Prednisone once daily 5 days Take this in the morning
== END 2017-06-01 21:55 | disposition home or self-care (01) ==
LOC: UCEAST 20:33
DX: J06.9 Acute upper respiratory infection, unspecified (principal); Z88.6 Allergy status to analgesic agent; Z88.7 Allergy status to serum and vaccine; Z88.8 Allergy status to other drugs, medicaments and biological substances; Z91.048 Other nonmedicinal substance allergy status; Z72.0 Tobacco use
CPT/HCPCS: 87502; 87651; 99212; G0463

== ENCOUNTER 2017-06-11 18:10 | Emergency (ER) | payer OTHER ==
[2017-06-11 18:29] VITALS: BP 105/63
[2017-06-11] MEDS ORDERED: Amoxicillin/Clavulanate TAB* 875 MG PO ONE ×2 (19:13→19:14)
--- NOTE | 2017-06-11 20:19 | UC ---
Anish Oliveros Natalie, scribed for Omid Nguyen MD on 06/11/17 at 1931 . Ear Complaint HPI - HPI Summary HPI Summary: The pt is a 31 y/o F presenting to [facility] c/o left ear ache with hearing loss onset two days ago. Starting on 06/01/17, the pt was feeling unwell with nasal congestion, which is still present. The ear pain is rated 8/10. She additionally c/o green nasal discharge, sore throat on the left side, and chest tightness. 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 - History of Current Complaint Chief Complaint: UCEar Stated Complaint: EAR PAIN Time Seen by Provider: 06/11/17 19:05 Hx Obtained From: Patient Hx Last Menstrual Period: 06/11/2017 Onset/Duration: Lasting Days, Still Present Pain Intensity: 8 Pain Scale Used: 0-10 Numeric Associated Signs/Symptoms: Positive: Hearing Loss - Allergies/Home Medications Allergies/Adverse Reactions: Allergies Allergy/AdvReac Type Severity Reaction Status Date / Time Adhesive Tape Allergy Mild Rash And Verified 06/01/17 20:44 Itching MS Aspirin [From Coricidin] Allergy Unknown Unknown Verified 06/01/17 20:44 Reaction Details acetaminophen Allergy Airway Verified 06/01/17 20:44 [From Coricidin] Obstruction chlorpheniramine Allergy Airway Verified 06/01/17 20:44 [From Coricidin] Obstruction diphenhydramine Allergy Unknown Verified 06/01/17 20:44 [From Benadryl] Reaction Details MS Flu Virus Vaccine Allergy See Comment Verified 06/01/17 20:44 [Flu Virus Vaccine] phenylpropanolamine Allergy Airway Verified 06/01/17 20:44 [From Coricidin] Obstruction Home Medications: Home Medications Ibuprofen 600 mg PO Q8HR PRN 06/11/17 [History Confirmed 06/11/17] PMH/Surg Hx/FS Hx/Imm Hx - Surgical History Surgical History: Yes Surgery Procedure, Year, and Place: EAR TUBES A CHILD - Family History Known Family History: Positive: Diabetes, Respiratory Disease - COPD, Other - [place] - Social History Alcohol Use: None Alcohol Amount: Sober for approximately 2 years Substance Use Type: None Smoking Status (MU): Current Some Day Smoker Type: Cigarettes Amount Used/How Often: 0- 1/2 ppd Length of Time of Smoking/Using Tobacco: 7 YEARS Have You Smoked in the Last Year: Yes - Immunization History Most Recent Influenza Vaccination: this season Most Recent Pneumonia Vaccination: none Review of Systems ENT: Sore Throat, Ear Ache - left, Nasal Discharge, Sinus Congestion Cardiovascular: Chest Pain - tightness All Other Systems Reviewed And Are Negative: Yes Physical Exam Triage Information Reviewed: Yes Appearance: Well-Appearing, No Pain Distress Vital Signs: Initial Vital Signs Temp 98.4 F 06/11/17 18:19 Pulse 78 06/11/17 18:19 Resp 18 06/11/17 18:19 BP 105/63 06/11/17 18:19 Pulse Ox 100 06/11/17 18:19 Vital Signs Reviewed: Yes ENT: Positive: Other - left serous otitis media, no tenderness to palpation of tragus or traction on pinnae, positive rhinorrhea, post anterior cervical lymphadenopathy, posterior pharynx eryhemtatous Neck: Positive: Supple, Nontender Respiratory: Positive: Other: - CTA, breath sounds present Cardiovascular: Positive: RRR Abdomen Description: Positive: Nontender, Soft Bowel Sounds: Positive: Present Musculoskeletal Exam: Normal Musculoskeletal: Positive: Strength Intact, ROM Intact Neurological: Positive: Other: - normal, sensory/motor intact, A&O x3 Psychological: Positive: Other: - affect/mood appropriate Skin: Positive: Other - warm, color reflects adequate perfusion Ear Complaint Course/Dx - Course Course Of Treatment: Medications reviewed. Allergies noted. - Differential Dx/Diagnosis Provider Diagnoses: SINUSITIS. LEFT EAR PAIN Discharge - Sign-Out/Discharge Documenting (check all that apply): Discharge - Discharge Plan Condition: Stable Disposition: HOME Discharge Disposition Comment: The pt will be discharged home. Prescriptions: Amoxicillin/Clavulanate TAB* [Augmentin TAB 875*] 875 mg PO BID #18 tab Patient Education Materials: Sinusitis (ED), Earache (ED) Referrals: Boyd Giordano MD [Primary Care Provider] - Additional Instructions: FOLLOW UP WITH YOUR DOCTOR. GET RECHECKED FOR ANY WORSENING OF YOUR CONDITION OR QUESTIONS OR CONCERNS. - Billing Disposition and Condition Condition: STABLE Disposition: HOME The documentation as recorded by the Anish ambriz Natalie accurately reflects the service I personally performed and the decisions made by me, Omid Nguyen MD.
== END 2017-06-11 19:30 | disposition home or self-care (01) ==
LOC: UCEAST 18:10
DX: J32.9 Chronic sinusitis, unspecified (principal); H92.02 Otalgia, left ear; Z88.7 Allergy status to serum and vaccine; Z88.8 Allergy status to other drugs, medicaments and biological substances; Z91.048 Other nonmedicinal substance allergy status; F17.210 Nicotine dependence, cigarettes, uncomplicated
CPT/HCPCS: 99212; A9270-GY; G0463

== ENCOUNTER 2017-10-01 16:27 | Emergency (ER) | payer OTHER ==
[2017-10-01 16:42] VITALS: BP 112/78
--- NOTE | 2017-10-01 16:49 | UC ---
Hand/Wrist HPI - HPI Summary HPI Summary: Patient presents with 1-2 day non-traumatic right wrist and thumb pain. She states it started at the base of her thumb, and now includes the wrist. The pain is worse with movment and improves at rest. She describes the pain as aching and throbbing. Denies any numbness or tingling, and denies any injury. - History Of Current Complaint Chief Complaint: UCUpperExtremity Stated Complaint: WRIST PAIN Time Seen by Provider: 10/01/17 16:31 Hx Obtained From: Patient Hx Last Menstrual Period: currently ?: No Onset/Duration: Gradual Onset, Lasting Days Severity Initially: Mild Severity Currently: Moderate Pain Intensity: 6 Character Of Pain: Aching, Throbbing Aggravating Factor(s): Movement Alleviating Factor(s): Rest Associated Signs And Symptoms: Positive: Negative - Allergies/Home Medications Allergies/Adverse Reactions: Allergies Allergy/AdvReac Type Severity Reaction Status Date / Time Adhesive Tape Allergy Mild Rash And Verified 10/01/17 16:36 Itching acetaminophen Allergy Airway Verified 10/01/17 16:36 [From Coricidin] Obstruction chlorpheniramine Allergy Airway Verified 10/01/17 16:36 [From Coricidin] Obstruction diphenhydramine Allergy Unknown Verified 10/01/17 16:36 [From Benadryl] Reaction Details phenylpropanolamine Allergy Airway Verified 10/01/17 16:36 [From Coricidin] Obstruction flu vaccine Allergy Airway Uncoded 10/01/17 16:36 Obstruction PMH/Surg Hx/FS Hx/Imm Hx Previously Healthy: Yes - Surgical History Surgical History: Yes Surgery Procedure, Year, and Place: EAR TUBES A CHILD - Family History Known Family History: Positive: None, Diabetes, Respiratory Disease - COPD, Other - [place] - Social History Occupation: Employed Full-time Lives: With Family Alcohol Use: None Alcohol Amount: Sober for approximately 2 years Substance Use Type: None Smoking Status (MU): Current Some Day Smoker Type: Cigarettes Amount Used/How Often: 0- 1/2 ppd Length of Time of Smoking/Using Tobacco: 7 YEARS Have You Smoked in the Last Year: Yes - Immunization History Most Recent Influenza Vaccination: this season Most Recent Pneumonia Vaccination: none Review of Systems Constitutional: Negative Skin: Negative Eyes: Negative ENT: Negative Respiratory: Negative Cardiovascular: Negative Gastrointestinal: Negative Genitourinary: Negative Motor: Negative Neurovascular: Negative Musculoskeletal: Decreased ROM, Myalgia Neurological: Negative Psychological: Negative Is Patient Immunocompromised?: No All Other Systems Reviewed And Are Negative: Yes Physical Exam Triage Information Reviewed: Yes Completion Of Physical Exam Limited Due To: Altered Mental Status Appearance: Well-Appearing Vital Signs: Initial Vital Signs Temp 98.5 F 10/01/17 16:36 Pulse 68 10/01/17 16:36 Resp 18 10/01/17 16:36 BP 112/78 10/01/17 16:36 Pulse Ox 97 10/01/17 16:36 Vital Signs Reviewed: Yes Eye Exam: Normal ENT Exam: Normal Dental Exam: Normal Neck exam: Normal Neck: Positive: 1 Respiratory Exam: Normal Cardiovascular Exam: Normal Abdominal Exam: Normal Musculoskeletal: Positive: Other: - right wrist; no gross deformities noted. palpation;tenderness on palpation of the medial and lateral distal wrist. no warmth noted, no edema. rom;intact in all planes, with pain reported with flexion and extension. vascualr exam; strong radial pulses, capillary refill less that three seconds. neruo-no deficits noted to touch distal fingers x 5. Neurological Exam: Normal Psychological Exam: Normal Skin Exam: Normal Hand/Wrist Course/Dx - Course Course Of Treatment: Patient presents with non-traumatic right wrist pain. I did not feel x-rays were indicated. Clinical findings are consistent with tendonitis. 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 I am going to place the patient in a thumb spicp splint and RX medrol dose pack. I told the patient to wear the spint as much as possible. And to follow up with her doctor in three days. - Differential Dx/Diagnosis Differential Diagnosis/HQI/PQRI: Tendonitis Provider Diagnoses: tendonitis Discharge - Sign-Out/Discharge Documenting (check all that apply): Patient Departure - Discharge Plan Condition: Stable Disposition: HOME Prescriptions: methylPREDNISolone [Medrol Dosepak 4 MG*] 0 mg PO .SEE SONALI INSTRUCTION #1 tab Patient Education Materials: Tendinitis (ED) Referrals: oByd Giordano MD [Primary Care Provider] - Additional Instructions: Follow up with your doctor in three days. - Billing Disposition and Condition Condition: STABLE Disposition: Home
== END 2017-10-01 17:00 | disposition home or self-care (01) ==
LOC: UCEAST 16:27
DX: M65.841 Other synovitis and tenosynovitis, right hand (principal); Z88.6 Allergy status to analgesic agent; Z88.7 Allergy status to serum and vaccine; Z88.8 Allergy status to other drugs, medicaments and biological substances; Z91.048 Other nonmedicinal substance allergy status; Z72.0 Tobacco use
CPT/HCPCS: 99213; G0463

== ENCOUNTER 2017-11-14 14:51 | Emergency (ER) | payer OTHER ==
[2017-11-14 14:58] VITALS: BP 103/64
--- NOTE | 2017-11-14 14:59 | UC ---
Ear Complaint HPI - HPI Summary HPI Summary: 31 yo female presents with right ear "crackling" that began 3 days ago. She is worried that there is a spider in her ear as she has seen many spiders around the house. Denies fever, chills, decreased hearing, ear drainage, or ear pain. Denies allergies or sinus symptoms. - History of Current Complaint Chief Complaint: UCEar Stated Complaint: CRACKLING IN EAR Time Seen by Provider: 11/14/17 14:59 Hx Obtained From: Patient Hx Last Menstrual Period: 11/02/17 Severity Currently: None Pain Intensity: 0 - Allergies/Home Medications Allergies/Adverse Reactions: Allergies Allergy/AdvReac Type Severity Reaction Status Date / Time Adhesive Tape Allergy Mild Rash And Verified 11/14/17 14:59 Itching acetaminophen Allergy Airway Verified 11/14/17 14:59 [From Coricidin] Obstruction chlorpheniramine Allergy Airway Verified 11/14/17 14:59 [From Coricidin] Obstruction diphenhydramine Allergy Unknown Verified 11/14/17 14:59 [From Benadryl] Reaction Details phenylpropanolamine Allergy Airway Verified 11/14/17 14:59 [From Coricidin] Obstruction flu vaccine Allergy Airway Uncoded 11/14/17 14:59 Obstruction PMH/Surg Hx/FS Hx/Imm Hx - Additional Past Medical History Additional PMH: None - Surgical History Surgical History: Yes Surgery Procedure, Year, and Place: EAR TUBES A CHILD - Family History Known Family History: Positive: Diabetes, Respiratory Disease - COPD, Other - [place] - Social History Occupation: Employed Full-time Lives: With Family Alcohol Use: None Alcohol Amount: Sober for approximately 2 years Substance Use Type: None Smoking Status (MU): Current Some Day Smoker Type: Cigarettes Amount Used/How Often: 0- 1/2 ppd Length of Time of Smoking/Using Tobacco: 7 YEARS Have You Smoked in the Last Year: Yes - Immunization History Most Recent Influenza Vaccination: this season Most Recent Pneumonia Vaccination: none Review of Systems Constitutional: Negative Skin: Negative Eyes: Negative ENT: Ear Ache Respiratory: Negative Cardiovascular: Negative Gastrointestinal: Negative Neurovascular: Negative Neurological: Negative Psychological: Negative All Other Systems Reviewed And Are Negative: Yes Physical Exam - Summary Physical Exam Summary: GENERAL: NAD. WDWN. No pain distress. SKIN: No rashes, sores, lesions, or open wounds. HEENT: Head: AT/NC Eyes: EOM intact. Conjunctiva clear without inflammation or discharge. Ears: Hearing grossly normal. TMs intact, no bulging, erythema, or edema. Nose: Nasal mucosa pink and moist. NTTP maxillary and frontal sinus. Throat: Posterior oropharynx without exudates, erythema, or tonsillar enlargement. Uvula midline. NECK: Supple. Nontender. No lymphadenopathy. CHEST: CTAB. No r/r/w. No accessory muscle use. Breathing comfortably and in no distress. CV: RRR. Without m/r/g. Pulses intact. Cap refill <2seconds NEURO: Alert. CN II-XII grossly intact. PSYCH: Age appropriate behavior. Triage Information Reviewed: Yes Vital Signs: Initial Vital Signs Temp 98.9 F 11/14/17 14:56 Pulse 84 11/14/17 14:56 Resp 18 11/14/17 14:56 BP 103/64 11/14/17 14:56 Pulse Ox 99 11/14/17 14:56 Vital Signs Reviewed: Yes Ear Complaint Course/Dx - Course Course Of Treatment: Suspect eustacian tube dysfunction. Advised to try flonase and zyrtec. F/u if symptoms worsen or persist. - Differential Dx/Diagnosis Provider Diagnoses: Eustacian tube dysfunction Discharge - Sign-Out/Discharge Documenting (check all that apply): Patient Departure All imaging exams completed and their final reports reviewed: No Studies - Discharge Plan Condition: Stable Disposition: HOME Prescriptions: Fluticasone NASAL SPRAY 50MCG* [Flonase NASAL SPRAY 50MCG*] 2 spray BOTH NARES DAILY #1 btl Referrals: Boyd Giordano MD [Primary Care Provider] - Additional Instructions: If you develop a fever, shortness of breath, chest pain, new or worsening symptoms - please call your PCP or go to the ED. 1) Please try an over the counter Zyrtec or Claritin daily in addition to the nasal spray - Billing Disposition and Condition Condition: STABLE Disposition: Home - Attestation Statements Provider Attestation: Per institutional requirements, I have reviewed the chart, however, I was not consulted specifically or made aware of this patient by the above midlevel provider. I did not personally evaluate, interact with , or disposition this patient.
== END 2017-11-14 15:23 | disposition home or self-care (01) ==
LOC: UCEAST 14:51
DX: H69.91 Unspecified Eustachian tube disorder, right ear (principal); F17.210 Nicotine dependence, cigarettes, uncomplicated; Z91.09 Other allergy status, other than to drugs and biological substances; Z88.8 Allergy status to other drugs, medicaments and biological substances; Z88.7 Allergy status to serum and vaccine
CPT/HCPCS: 99212; G0463

== ENCOUNTER 2018-01-27 16:20 | Emergency (ER) | payer OTHER ==
[2018-01-27 16:27] VITALS: BP 121/80
--- NOTE | 2018-01-27 16:43 | UC ---
Skin Complaint HPI - HPI Summary HPI Summary: 32 year old female comes in today with a chief complaint of rash. She has slightly raised itchy areas on the left neck left arm and the bottom of the right foot. Started about 2 days ago. She's been itching them and they've been draining some clear fluid. She does not have any rash on her hands or at the waistline on her trunk. Has not been out in [place]. Has not seen any insects no 1 else she knows has this rash. No fevers or chills feels well otherwise. Patient has allergic reaction to Benadryl so she has not been able to use any Benadryl either by mouth or topically. - History of Current Complaint Chief Complaint: UCSkin Time Seen by Provider: 01/27/18 16:29 Stated Complaint: INSECT BITES Hx Last Menstrual Period: one week ago Pain Intensity: 4 - Allergy/Home Medications Allergies/Adverse Reactions: Allergies Allergy/AdvReac Type Severity Reaction Status Date / Time Adhesive Tape Allergy Mild Rash And Verified 01/27/18 16:28 Itching acetaminophen Allergy Airway Verified 01/27/18 16:28 [From Coricidin] Obstruction chlorpheniramine Allergy Airway Verified 01/27/18 16:28 [From Coricidin] Obstruction diphenhydramine Allergy Unknown Verified 01/27/18 16:28 [From Benadryl] Reaction Details phenylpropanolamine Allergy Airway Verified 01/27/18 16:28 [From Coricidin] Obstruction flu vaccine Allergy Airway Uncoded 01/27/18 16:28 Obstruction Review of Systems All Other Systems Reviewed And Are Negative: Yes Constitutional: Positive: Negative Skin: Positive: Rash Eyes: Positive: Negative ENT: Positive: Negative Respiratory: Positive: Negative Cardiovascular: Positive: Negative Gastrointestinal: Positive: Negative Motor: Positive: Negative Neurovascular: Positive: Negative Musculoskeletal: Positive: Negative Neurological: Positive: Negative Psychological: Positive: Negative Is Patient Immunocompromised?: No PMH/Surg Hx/FS Hx/Imm Hx Previously Healthy: Yes - Surgical History Surgical History: Yes Surgery Procedure, Year, and Place: EAR TUBES A CHILD - Family History Known Family History: Positive: None, Diabetes, Respiratory Disease - COPD, Other - [place] - Social History Alcohol Use: None Alcohol Amount: Sober for approximately 2 years Substance Use Type: None Smoking Status (MU): Light Every Day Tobacco Smoker Type: Cigarettes Amount Used/How Often: 0- 1/2 ppd Length of Time of Smoking/Using Tobacco: 7 YEARS Have You Smoked in the Last Year: Yes - Immunization History Most Recent Influenza Vaccination: this season Most Recent Pneumonia Vaccination: none Physical Exam Triage Information Reviewed: Yes Appearance: Well-Appearing, No Pain Distress, Well-Nourished Vital Signs: Initial Vital Signs Temp 98.1 F 01/27/18 16:24 Pulse 77 01/27/18 16:24 Resp 18 01/27/18 16:24 BP 121/80 01/27/18 16:24 Pulse Ox 100 01/27/18 16:24 Vital Signs Reviewed: Yes Eye Exam: Normal Eyes: Positive: Conjunctiva Clear Neck exam: Normal Neck: Positive: Supple Respiratory: Positive: No respiratory distress Musculoskeletal Exam: Normal Musculoskeletal: Positive: Strength Intact, ROM Intact Neurological Exam: Normal Neurological: Positive: Alert, Muscle Tone Normal Psychological Exam: Normal Psychological: Positive: Normal Response To Family, Age Appropriate Behavior Skin: Positive: Other - Patient has raised erythematous blanching rashes each one approximately 1.5 cm in diameter on the sole of the right foot on the left forearm and on the left neck. There is evidence of the patient's been scratching them and there is a small amount of serous fluid. No streaking. Course/Dx - Course Course Of Treatment: The etiology of the rash is undetermined by myself at this time. Walk about scabies and bedbugs and contact dermatitis. Is not in a distribution of scabies it does not appear to be scabies. Bedbugs are possibility and the patient will evaluate for that. Otherwise we will plan to treat symptomatically. Patient is allergic to Benadryl therefore going to use a Medrol dosepak and she can put some calamine lotion on they're cover them and use ice to help decrease the itching. Patient should get rechecked if she gets worse or has any other questions or concerns. - Diagnoses Provider Diagnoses: RASH Discharge - Sign-Out/Discharge Documenting (check all that apply): Patient Departure All imaging exams completed and their final reports reviewed: No Studies - Discharge Plan Condition: Stable Disposition: HOME Prescriptions: methylPREDNISolone [Medrol Dosepak 4 MG*] 0 mg PO .SEE SONALI INSTRUCTION #1 sonali Patient Education Materials: Acute Rash (ED) Referrals: Boyd Giordano MD [Primary Care Provider] - Additional Instructions: FOLLOW UP WITH YOUR DOCTOR IF NOT COMPLETELY IMPROVED. GET RECHECKED FOR ANY WORSENING OF YOUR CONDITION OR QUESTIONS OR CONCERNS. - Billing Disposition and Condition Condition: STABLE Disposition: Home
== END 2018-01-27 16:52 | disposition home or self-care (01) ==
LOC: UCEAST 16:20
DX: R21 Rash and other nonspecific skin eruption (principal); F17.210 Nicotine dependence, cigarettes, uncomplicated; Z88.6 Allergy status to analgesic agent; Z88.8 Allergy status to other drugs, medicaments and biological substances; Z88.7 Allergy status to serum and vaccine; Z91.048 Other nonmedicinal substance allergy status
CPT/HCPCS: 99212; G0463

== ENCOUNTER 2018-02-03 19:17 | Emergency (ER) | payer OTHER ==
--- NOTE | 2018-02-03 19:47 | ED ---
HPI Chest Pain - HPI Summary HPI Summary: 32 year old F presenting to [facility] accompanied by mother complains of waxing and waning chest spasms since nine hours ago at work, worse since one hour ago when the twitching increased in frequency. The patient rates the pain 0/10 in severity. Symptoms aggravated by nothing. Symptoms alleviated by nothing. Patient reports chest tightness. Patient reports insomnia and shortness of breath. - History of Current Complaint Chief Complaint: EDChestWallPain Time Seen by Provider: 02/03/18 19:38 Hx Obtained From: Patient Hx Last Menstrual Period: one week ago Onset/Duration: Started Hours Ago - 9, Still Present, Worse Since - one hour ago Current Severity: None Pain Intensity: 0 Pain Scale Used: 0-10 Numeric Character: Other: - spasm, tightness Aggravating Factor(s): Nothing Alleviating Factor(s): Nothing Associated Signs and Symptoms: Positive: Other: - chest tightness, insomnia, and shortness of breath - Allergy/Home Medications Allergies/Adverse Reactions: Allergies Allergy/AdvReac Type Severity Reaction Status Date / Time Adhesive Tape Allergy Mild Rash And Verified 01/27/18 16:28 Itching acetaminophen Allergy Airway Verified 01/27/18 16:28 [From Coricidin] Obstruction chlorpheniramine Allergy Airway Verified 01/27/18 16:28 [From Coricidin] Obstruction diphenhydramine Allergy Unknown Verified 01/27/18 16:28 [From Benadryl] Reaction Details phenylpropanolamine Allergy Airway Verified 01/27/18 16:28 [From Coricidin] Obstruction flu vaccine Allergy Airway Uncoded 01/27/18 16:28 Obstruction PMH/Surg Hx/FS Hx/Imm Hx Previously Healthy: No Endocrine/Hematology History: Denies: Hx Diabetes, Hx Thyroid Disease Cardiovascular History: Reports: Other Cardiovascular Problems/Disorders - heart murmur Denies: Hx Hypertension, Hx Pacemaker/ICD Respiratory History: Reports: Hx Asthma Denies: Hx Chronic Obstructive Pulmonary Disease (COPD) GI History: Denies: Hx Ulcer Sensory History: Reports: Hx Contacts or Glasses Denies: Hx Hearing Aid Opthamlomology History: Reports: Hx Contacts or Glasses Psychiatric History: Reports: Hx Anxiety, Hx Attention Deficit Hyperactivity Disorder, Hx Panic Disorder, Hx Community Mental Health Tx, Hx Substance Abuse - Surgical History Surgery Procedure, Year, and Place: EAR TUBES A CHILD - Immunization History Date of Tetanus Vaccine: utd Date of Influenza Vaccine: no Infectious Disease History: No Infectious Disease History: Denies: Hx Clostridium Difficile, Hx Hepatitis, Hx Human Immunodeficiency Virus (HIV), Hx of Known/Suspected MRSA, Hx Shingles, Hx Tuberculosis, Hx Known/ Suspected VRE, Hx Known/Suspected VRSA, History Other Infectious Disease, Traveled Outside the [place] in Last 30 Days - Family History Known Family History: Positive: Diabetes, Respiratory Disease - COPD, Other - [place] - Social History Alcohol Use: None Alcohol Amount: Sober for approximately 2 years Hx Substance Use: No Substance Use Type: Reports: None Hx Tobacco Use: Yes Smoking Status (MU): Light Every Day Tobacco Smoker Type: Cigarettes Amount Used/How Often: 0- 1/2 ppd Length of Time of Smoking/Using Tobacco: 7 YEARS Have You Smoked in the Last Year: Yes Review of Systems Positive: Shortness Of Breath Positive: Other - chest tightness, chest spasms Positive: Other - insomnia All Other Systems Reviewed And Are Negative: Yes Physical Exam - Summary Physical Exam Summary: Appearance: Well-appearing, Well-nourished, lying in bed comfortably Skin: Warm, dry, no obvious rash Eyes: sclera anicteric, no conjunctival pallor ENT: mucous membranes moist, pharynx appears normal Neck: Supple, nontender Respiratory: Clear to auscultation, no signs of respiratory distress Cardiovascular: Normal S1, S2. No murmurs. Normal distal pulses in tibial and radial bilaterally. Abdomen: Soft, nontender, normal active bowel sounds present Musculoskeletal: Normal, Strength/ROM Intact Neurological: A&Ox3, awake and alert, mentation is normal, speech is fluent and appropriate Psychiatric: affect is normal, does not appear anxious or depressed Triage Information Reviewed: Yes Vital Signs On Initial Exam: Initial Vitals Temp Pulse Resp BP Pulse Ox 98.8 F 77 18 115/73 99 02/03/18 19:25 02/03/18 19:25 02/03/18 19:25 02/03/18 19:25 02/03/18 19:25 Vital Signs Reviewed: Yes Diagnostics - Vital Signs Vital Signs Temp Pulse Resp BP Pulse Ox 02/03/18 19:25 98.8 F 77 18 115/73 99 - Laboratory Lab Statement: Any lab studies that have been ordered have been reviewed, and results considered in the medical decision making process. - EKG 1933 Cardiac Rate: NL - 71 BPM EKG Rhythm: Sinus Rhythm Summary of EKG Findings: NSR at 71 BPM, P waves, QRS complex, and T waves are within normal limits, T waves and intervals are normal, no ischemic changes. This is a normal EKG Chest Pain Course/Dx - Course Course Of Treatment: 32 year old F presenting to [facility] complains of chest spasms since nine hours ago at work, worse since one hour ago when the twitching increased in frequency. She has hx heart murmur. Patient reports that she did not sleep well last night. She woke up at 2am this morning and could not fall back asleep. Patient showed a video showing muscle spasms in chest wall. EKG was normal. Patient will be discharged home with follow up from her PCP if needed. Patient and her mother are agreeable with the dispo plan. - Diagnoses Provider Diagnoses: Muscle spasm Discharge - Sign-Out/Discharge Documenting (check all that apply): Patient Departure - Discharge - Discharge Plan Condition: Stable Disposition: HOME Patient Education Materials: Muscle Spasm (ED) Referrals: Boyd Giordano MD [Primary Care Provider] - If Needed Additional Instructions: Muscle spasm like this can happen for any number of reasons, but they are entirely benign. Your EKG looks normal and I have no suspicion that this is related to a heart or any other serious problem. - Billing Disposition and Condition Condition: STABLE Disposition: Home - Attestation Statements Document Initiated by You: Yes Documenting Scribe: Ofelia Thompson Provider For Whom You is Documenting (Include Credential): Reg Hale MD Scribe Attestation: I, Ofelia Thompson, scribed for Reg Hale MD on 02/12/18 at 0058. Scribe Documentation Reviewed: Yes Provider Attestation: The documentation as recorded by the Ofelia ambriz accurately reflects the service I personally performed and the decisions made by me, Reg Hale MD
[2018-02-03 19:57] VITALS: BP 103/60
== END 2018-02-03 19:57 | disposition home or self-care (01) ==
LOC: ED 19:17
DX: M62.838 Other muscle spasm (principal); F17.210 Nicotine dependence, cigarettes, uncomplicated
CPT/HCPCS: 93005; 99282

== ENCOUNTER 2018-03-08 08:07 | Emergency (ER) | payer OTHER ==
--- NOTE | 2018-03-08 08:22 | UC ---
Throat Pain/Nasal Mitesh HPI - HPI Summary HPI Summary: 32-year-old woman comes in to clinic today with a chief complaint of blood in her rhinorrhea. By 10 days ago patient had upper respiratory tract infection symptoms. These improved quite a bit however in the last couple of days she started with yellow-green rhinorrhea and right ear pain. This morning when she coughed it was blood in her rhinorrhea and sputum. At this time she does not feel like the infection is in her chest. She's been taken ibuprofen which is been helping with the body aches that she's been having and the fevers she's been having. - History of Current Complaint Stated Complaint: COUGH CHILLS BODYACHES Time Seen by Provider: 03/08/18 08:13 Hx Last Menstrual Period: one week ago - Allergies/Home Medications Allergies/Adverse Reactions: Allergies Allergy/AdvReac Type Severity Reaction Status Date / Time Adhesive Tape Allergy Mild Rash And Verified 03/08/18 08:18 Itching acetaminophen Allergy Airway Verified 03/08/18 08:18 [From Coricidin] Obstruction chlorpheniramine Allergy Airway Verified 03/08/18 08:18 [From Coricidin] Obstruction diphenhydramine Allergy Unknown Verified 03/08/18 08:18 [From Benadryl] Reaction Details phenylpropanolamine Allergy Airway Verified 03/08/18 08:18 [From Coricidin] Obstruction flu vaccine Allergy Airway Uncoded 03/08/18 08:18 Obstruction Home Medications: Home Medications Ibuprofen TAB* [Advil TAB*] 400 mg PO Q6H PRN 03/08/18 [History Confirmed ] PMH/Surg Hx/FS Hx/Imm Hx Previously Healthy: Yes - Surgical History Surgical History: Yes Surgery Procedure, Year, and Place: EAR TUBES A CHILD - Family History Known Family History: Positive: None, Diabetes, Respiratory Disease - COPD, Other - [place] - Social History Alcohol Use: None Alcohol Amount: Sober for approximately 2 years Substance Use Type: None Smoking Status (MU): Light Every Day Tobacco Smoker Type: Cigarettes Amount Used/How Often: 0- 1/2 ppd Length of Time of Smoking/Using Tobacco: 7 YEARS Have You Smoked in the Last Year: Yes - Immunization History Most Recent Influenza Vaccination: this season Most Recent Pneumonia Vaccination: none Review of Systems All Other Systems Reviewed And Are Negative: Yes Constitutional: Positive: Fever, Chills, Other - MYALGIAS Skin: Positive: Negative Eyes: Positive: Negative ENT: Positive: Sore Throat, Ear Ache, Nasal Discharge, Sinus Congestion, Sinus Pain/Tenderness Respiratory: Positive: Cough Cardiovascular: Positive: Negative Gastrointestinal: Positive: Negative Motor: Positive: Negative Neurovascular: Positive: Negative Musculoskeletal: Positive: Myalgia Neurological: Positive: Negative Psychological: Positive: Negative Is Patient Immunocompromised?: No Physical Exam Triage Information Reviewed: Yes Appearance: No Pain Distress, Well-Nourished, Ill-Appearing - MILD Vital Signs Reviewed: Yes Eye Exam: Normal Eyes: Positive: Conjunctiva Clear ENT: Positive: Pharyngeal erythema, Nasal congestion, Nasal drainage, TM bulging - RT, TM red - RT Neck exam: Normal Neck: Positive: Supple Respiratory: Positive: Lungs clear, Normal breath sounds, No respiratory distress Cardiovascular: Positive: RRR Musculoskeletal Exam: Normal Musculoskeletal: Positive: Strength Intact, ROM Intact Neurological Exam: Normal Neurological: Positive: Alert, Muscle Tone Normal Psychological Exam: Normal Psychological: Positive: Normal Response To Family, Age Appropriate Behavior Skin Exam: Normal Throat Pain/Nasal Course/Dx - Differential Dx/Diagnosis Provider Diagnosis: Right otitis media, Sinusitis Discharge - Sign-Out/Discharge Documenting (check all that apply): Patient Departure All imaging exams completed and their final reports reviewed: No Studies - Discharge Plan Condition: Stable Disposition: HOME Prescriptions: Amoxicillin/Clavulanate TAB* [Augmentin TAB 875*] 875 mg PO BID #20 tab Patient Education Materials: Sinusitis (ED), Ear Infection (ED) Forms: *Work Release Referrals: Boyd Giordano MD [Primary Care Provider] - Additional Instructions: FOLLOW UP WITH YOUR DOCTOR IF NOT COMPLETELY IMPROVED. GET RECHECKED FOR ANY WORSENING OF YOUR CONDITION OR QUESTIONS OR CONCERNS. - Billing Disposition and Condition Condition: STABLE Disposition: Home
[2018-03-08 08:23] VITALS: BP 127/73
== END 2018-03-08 08:25 | disposition home or self-care (01) ==
LOC: UCEAST 08:07
DX: H66.91 Otitis media, unspecified, right ear (principal); J32.9 Chronic sinusitis, unspecified; F17.210 Nicotine dependence, cigarettes, uncomplicated; Z88.8 Allergy status to other drugs, medicaments and biological substances; Z88.6 Allergy status to analgesic agent; Z91.048 Other nonmedicinal substance allergy status; Z88.7 Allergy status to serum and vaccine
CPT/HCPCS: 99212; G0463

== ENCOUNTER 2018-03-10 15:42 | Emergency (ER) | payer OTHER ==
[2018-03-10 15:52] VITALS: BP 125/88
--- NOTE | 2018-03-10 15:56 | ED ---
Respiratory - HPI Summary HPI Summary: Patient is 32-year-old woman, who present today to the urgent care with worsening of her symptoms . She was seen here on 03/08/18 and was diagnosed with sinusitis/ear infection and treated with Augmentin. Today is day 3 of Augmentin.. She reports that now she has more symptoms, feels like she is losing her voice with dry nonproductive cough. Also has some dizziness and nausea. Denies any fevers at home. On further questioning she reports that she doesn't feel good and not taking good diet and she has some nausea and notices some abdominal pain. She also notices some shortness of breath but feels like it's like her cough and losing her voice that makes her feel like that She denies any chest pain, Vaginal discharge or urinary symptoms/ LMP LMP: 02/16/80 - History of Current Complaint Chief Complaint: UCRespiratory Stated Complaint: COUGH, AND CHEST CONGESTION Time Seen by Provider: 03/10/18 15:45 Hx Obtained From: Patient Pain Intensity: 0 - Allergy/Home Medications Allergies/Adverse Reactions: Allergies Allergy/AdvReac Type Severity Reaction Status Date / Time Adhesive Tape Allergy Mild Rash And Verified 03/10/18 15:52 Itching acetaminophen Allergy Airway Verified 03/10/18 15:52 [From Coricidin] Obstruction chlorpheniramine Allergy Airway Verified 03/10/18 15:52 [From Coricidin] Obstruction diphenhydramine Allergy Unknown Verified 03/10/18 15:52 [From Benadryl] Reaction Details phenylpropanolamine Allergy Airway Verified 03/10/18 15:52 [From Coricidin] Obstruction flu vaccine Allergy Airway Uncoded 03/10/18 15:52 Obstruction PMH/Surg Hx/FS Hx/Imm Hx Previously Healthy: Yes Endocrine/Hematology History: Denies: Hx Diabetes, Hx Thyroid Disease Cardiovascular History: Reports: Other Cardiovascular Problems/Disorders - heart murmur Denies: Hx Hypertension, Hx Pacemaker/ICD Respiratory History: Reports: Hx Asthma - has not been on inhalers for a long time Denies: Hx Chronic Obstructive Pulmonary Disease (COPD) GI History: Denies: Hx Ulcer Sensory History: Reports: Hx Contacts or Glasses Denies: Hx Hearing Aid Opthamlomology History: Reports: Hx Contacts or Glasses Psychiatric History: Reports: Hx Anxiety, Hx Attention Deficit Hyperactivity Disorder, Hx Panic Disorder, Hx Community Mental Health Tx, Hx Substance Abuse - Surgical History Surgery Procedure, Year, and Place: EAR TUBES A CHILD - Immunization History Date of Tetanus Vaccine: utd Date of Influenza Vaccine: no Infectious Disease History: No Infectious Disease History: Denies: Hx Clostridium Difficile, Hx Hepatitis, Hx Human Immunodeficiency Virus (HIV), Hx of Known/Suspected MRSA, Hx Shingles, Hx Tuberculosis, Hx Known/ Suspected VRE, Hx Known/Suspected VRSA, History Other Infectious Disease, Traveled Outside the [place] in Last 30 Days - Family History Known Family History: Positive: None, Diabetes, Respiratory Disease - COPD, Other - [place] - Social History Alcohol Use: None Alcohol Amount: Sober for approximately 3 years Hx Substance Use: No Substance Use Type: Reports: None Hx Tobacco Use: Yes Smoking Status (MU): Former Smoker Type: Cigarettes Amount Used/How Often: 0- 1/2 ppd Length of Time of Smoking/Using Tobacco: 7 YEARS Have You Smoked in the Last Year: Yes Review of Systems Positive: Fatigue Eyes: Negative ENT: Negative Cardiovascular: Negative Positive: Shortness Of Breath, Cough - nonproductive, Other - hoarseness and losing voice Positive: Abdominal Pain, Nausea Genitourinary: Negative Musculoskeletal: Negative Skin: Negative Neurological: Negative Psychological: Normal All Other Systems Reviewed And Are Negative: Yes Physical Exam - Summary Physical Exam Summary: Physical Exam: Const: Appears well. No signs of apparent distress present. Alert and oriented x 3. Hoarse voice Musculo: Walks with a normal gait. Head/Face: Atraumatic, normocephalic on inspection. Eyes: EOMI and PERRLA in both eyes. Conjunctivae clear. No discharge noted ENT: Hearing normal, TM with minimal erythema bilaterally Tender anterior cervical lymphadenopathy Minimal pharyngeal erythema, no exudates Respiratory: Lungs clear to auscultation bilaterally, no wheezing , rhonchi or rales noted . CVS: Regular rate and Rhythm, S1S2 normal , no murmurs identified. Extremities: Peripheral circulation is grossly normal. Pulses 2+ Abdomen : Tenderness to palpation is noted mainly at the left lower quadrant and an periumbilical area Nondistended , Bowel sounds present . There is associated guarding , rebound tenderness noted. Skin: No lesions or rash located on the upper extremities or on the lower extremities. Neuro: Cranial nerves II to XII intact, motor and sensory intact. DTR Intact bilaterally. Mood is normal. Affect is normal. Triage Information Reviewed: Yes Vital Signs On Initial Exam: Initial Vitals Temp Pulse Resp BP Pulse Ox 98.8 F 84 18 125/88 100 03/10/18 15:48 03/10/18 15:48 03/10/18 15:48 03/10/18 15:48 03/10/18 15:48 Vital Signs Reviewed: Yes Diagnostics - Vital Signs Vital Signs Temp Pulse Resp BP Pulse Ox 03/10/18 15:48 98.8 F 84 18 125/88 100 - Laboratory Lab Statement: Any lab studies that have been ordered have been reviewed, and results considered in the medical decision making process. Disposition - Course Course Of Treatment: During the visit today, we discussed the findings and further plan. There is a possibility that her symptoms are related to a viral infection causing laryngitis along with gastroenteritis . But she is significantly tender on exam along with guarding .we discussed further options that imaging is needed at this time for further evaluation and plan to send her to ER for definitive management . Differentials include viral gastroenteritis, ovarian pathology or possibly C. difficile colitis. She agrees and expressed understanding. Report was called to [facility] . Her mother will drive her to ER - Diagnoses Provider Diagnoses: Laryngitis, Otitis media, Abdominal pain Discharge - Sign-Out/Discharge Documenting (check all that apply): Patient Departure All imaging exams completed and their final reports reviewed: No Studies - Discharge Plan Condition: Stable Disposition: HOME-RECOMMEND TO ED Referrals: Boyd Giordano MD [Primary Care Provider] - 1 Week Additional Instructions: Recommendations for patient to go to ER for further evaluation and management. Patient needs additional testing, thus ER transfer advised and patient agrees. Report called to the ER provider at [facility], advised provider of the history, physical examination, and duration of illness and labs/imaging so far and the need for definitive management. Her mom is with her and will drive her to the ER. - Billing Disposition and Condition Condition: STABLE Disposition: Home-Recommend to ED
== END 2018-03-10 16:22 | disposition home health service (06) ==
LOC: UCEAST 15:42
DX: J04.0 Acute laryngitis (principal); H66.90 Otitis media, unspecified, unspecified ear; R10.9 Unspecified abdominal pain; Z88.6 Allergy status to analgesic agent; Z88.8 Allergy status to other drugs, medicaments and biological substances; Z91.048 Other nonmedicinal substance allergy status; Z88.7 Allergy status to serum and vaccine; Z87.891 Personal history of nicotine dependence
CPT/HCPCS: 99212; G0463

== ENCOUNTER 2018-03-10 16:40 | Emergency (ER) | payer OTHER ==
[2018-03-10] MEDS ORDERED: Famotidine TAB* 20 MG PO ONE (16:58)
[2018-03-10] MEDS ORDERED: NS 0.9% 1000 ML* 1,000 ML IV ONE (16:58)
[2018-03-10] MEDS ORDERED: Sucralfate TAB* 1 GM PO ONE (16:58)
[2018-03-10] MEDS ORDERED: Ondansetron INJ* 2 MG/ML VIAL IV ONE (16:58)
--- NOTE | 2018-03-10 16:58 | ED ---
Abdominal Pain/Female - HPI Summary HPI Summary: This patient is a 32 year old F presenting to [facility] with a chief complaint of LUQ pain since earlier today. The patient rates the pain 5/10 in severity. Patient reports vomiting, ear infection, dizziness, and hemoptysis. Patient denies diarrhea and . She has been on Augmentin since 03/08/2018. Her LNMP was 02/15/2018. Patient denies having abdominal surgery before and denies drinking alcohol. Patient has had tubes in both ears before. She reports taking a lot of ibuprofen recently. She requests Zofran. - History of Current Complaint Chief Complaint: EDAbdPain Stated Complaint: LEFT SIDE ABD PAIN Hx Obtained From: Patient Hx Last Menstrual Period: Feb 15, 2018 Onset/Duration: Lasting Hours, Still Present Timing: Constant Severity Currently: Moderate Pain Intensity: 5 Pain Scale Used: 0-10 Numeric Location: Discrete At: LUQ Radiates: No Associated Signs and Symptoms: Positive: Dizzy, Vomiting, Other: - Ear infection , hemoptysis. Denies .. Negative: Diarrhea Allergies/Adverse Reactions: Allergies Allergy/AdvReac Type Severity Reaction Status Date / Time acetaminophen Allergy Severe Airway Verified 03/10/18 17:14 [From Coricidin] Obstruction chlorpheniramine Allergy Severe Airway Verified 03/10/18 17:14 [From Coricidin] Obstruction Influenza Virus Vaccines Allergy Severe Airway Verified 03/10/18 17:14 Obstruction phenylpropanolamine Allergy Severe Airway Verified 03/10/18 17:14 [From Coricidin] Obstruction Adhesive Tape Allergy Mild Rash And Verified 03/10/18 16:44 Itching diphenhydramine Allergy Unknown Verified 03/10/18 16:44 [From Benadryl] Reaction Details flu vaccine Allergy Severe Airway Uncoded 03/10/18 17:14 Obstruction PMH/Surg Hx/FS Hx/Imm Hx Endocrine/Hematology History: Denies: Hx Diabetes, Hx Thyroid Disease Cardiovascular History: Reports: Other Cardiovascular Problems/Disorders - heart murmur Denies: Hx Hypertension, Hx Pacemaker/ICD Respiratory History: Reports: Hx Asthma - has not been on inhalers for a long time Denies: Hx Chronic Obstructive Pulmonary Disease (COPD) GI History: Denies: Hx Ulcer Sensory History: Reports: Hx Contacts or Glasses Denies: Hx Hearing Aid Opthamlomology History: Reports: Hx Contacts or Glasses Psychiatric History: Reports: Hx Anxiety, Hx Attention Deficit Hyperactivity Disorder, Hx Panic Disorder, Hx Community Mental Health Tx, Hx Substance Abuse - Surgical History Surgery Procedure, Year, and Place: EAR TUBES A CHILD - Immunization History Date of Tetanus Vaccine: utd Date of Influenza Vaccine: no Infectious Disease History: No Infectious Disease History: Denies: Hx Clostridium Difficile, Hx Hepatitis, Hx Human Immunodeficiency Virus (HIV), Hx of Known/Suspected MRSA, Hx Shingles, Hx Tuberculosis, Hx Known/ Suspected VRE, Hx Known/Suspected VRSA, History Other Infectious Disease, Traveled Outside the [place] in Last 30 Days - Family History Known Family History: Positive: Diabetes, Respiratory Disease - COPD, Other - [place] - Social History Alcohol Use: None Alcohol Amount: Sober for approximately 3 years Hx Substance Use: No Substance Use Type: Reports: None Hx Tobacco Use: Yes Smoking Status (MU): Former Smoker Type: Cigarettes Amount Used/How Often: 0- 1/2 ppd Length of Time of Smoking/Using Tobacco: 7 YEARS Have You Smoked in the Last Year: Yes Review of Systems Positive: Other - Denies Positive: Ear Ache - Ear infection Positive: Cough - Hemoptysis Positive: Abdominal Pain - LUQ pain, Vomiting. Negative: Diarrhea Neurological: Other - Dizziness All Other Systems Reviewed And Are Negative: Yes Physical Exam - Summary Physical Exam Summary: Appearance: Well appearing, no pain distress Skin: warm, dry, reflects adequate perfusion Head/face: normal Eyes: EOMI, LUPE ENT: mucous membranes moist Neck: supple, non-tender Respiratory: CTA, breath sounds present Cardiovascular: RRR, pulses symmetrical Abdomen: Mild epigastric tenderness Bowel Sounds: present Musculoskeletal: normal, strength/ROM intact Neuro: normal, sensory motor intact, A&Ox3 Triage Information Reviewed: Yes Vital Signs On Initial Exam: Initial Vitals Temp Pulse Resp BP Pulse Ox 97.8 F 80 14 134/84 100 03/10/18 16:44 03/10/18 16:44 03/10/18 16:44 03/10/18 16:44 03/10/18 16:44 Vital Signs Reviewed: Yes Diagnostics - Vital Signs Vital Signs Temp Pulse Resp BP Pulse Ox 03/10/18 16:44 97.8 F 80 14 134/84 100 - Laboratory Lab Statement: Any lab studies that have been ordered have been reviewed, and results considered in the medical decision making process. - Ultrasound No standard instances Ultrasound Interpretation Completed By: ED Physician Summary of Ultrasound Findings: 17:00. Abdominal US: No pericardial fluid. No distention of the gallbladder. Negative Ellis sign. No free fluid. Re-Evaluation - Re-Evaluation 1 Re-Evaluation Time: 17:46 Change: Improved Comment: Patient feels much better. Abdominal Pain Fem Course/Dx - Course Course Of Treatment: Nurse's note reviewed. Patient with left upper quadrant/ epigastric discomfort since beginning ibuprofen and Augmentin. She has not experienced any diarrhea. There is no pain in the right upper quadrant. She has no fever and otherwise feels well aside from minor viral upper respiratory symptoms. I will discontinue the antibiotic and cut back on the ibuprofen. She feels much better here with IV hydration, oral GI meds to include Carafate, Pepcid and viscous lidocaine. Continue Pepcid, Carafate outpatient. Follow up primary care physician. - Diagnoses Differential Diagnosis: Positive: Irritable Bowel Syndrome, Peptic Ulcer Disease , Renal Colic, Other - Gastritis Provider Diagnoses: Gastritis, Adverse effect of antibiotic, URI (upper respiratory infection) Discharge - Sign-Out/Discharge Documenting (check all that apply): Patient Departure - D/C - Discharge Plan Condition: Improved Disposition: HOME Prescriptions: Famotidine TAB* [Pepcid 20 MG TAB*] 20 mg PO BID #20 tab Sucralfate [Carafate] 1 gm PO ACHS #40 tablet Patient Education Materials: Gastritis (ED), Upper Respiratory Infection (ED) Referrals: Boyd Giordano MD [Primary Care Provider] - Additional Instructions: Discontinue antibiotic. Avoid ibuprofen. You may take Tylenol. Humidifier while sleeping. Decongestant such as Mucinex or Mucinex D. Return with fever, difficulty breathing, worse, new symptoms or other concerns. Cut back on smoking - Billing Disposition and Condition Condition: IMPROVED Disposition: Home - Attestation Statements Document Initiated by Scribe: Yes Documenting Scribe: Slick Gauthier Provider For Whom You is Documenting (Include Credential): Jesus Hubbard MD Scribe Attestation: Slick Oliveros, scribed for Jesus Hubbard MD on 03/10/18 at 1808. Scribe Documentation Reviewed: Yes Provider Attestation: The documentation as recorded by the Slick ambriz accurately reflects the service I personally performed and the decisions made by me, Jesus Hubbard MD Status of [place] Document: Viewed
[2018-03-10] MEDS: Lidocaine 2% VISCOUS* 15 ML UDC PO ONE ×2 (17:11→17:20)
[2018-03-10 17:52] VITALS: BP 116/74
== END 2018-03-10 17:51 | disposition home or self-care (01) ==
LOC: ED 16:40
DX: K29.70 Gastritis, unspecified, without bleeding (principal); J06.9 Acute upper respiratory infection, unspecified; R10.12 Left upper quadrant pain; R42 Dizziness and giddiness; R11.10 Vomiting, unspecified; Z87.891 Personal history of nicotine dependence; R05 Cough
CPT/HCPCS: 96361; 96374; 99282; A9270-GY; J2405

== ENCOUNTER 2018-04-07 18:31 | Emergency (ER) | payer OTHER ==
[2018-04-07] MEDS ORDERED: Ibuprofen TAB* 400 MG PO ONE (19:42)
--- NOTE | 2018-04-07 19:42 | ED ---
Upper Extremity Pain - HPI Summary HPI Summary: Patient complains of dropping foot of bed onto back of left hand accidentally tonight. Denies any other injury, pain, symptoms. - History of Current Complaint Chief Complaint: EDExtremityUpper Stated Complaint: LEFT HAND INJURY Time Seen by Provider: 04/07/18 18:47 Hx Obtained From: Patient Hx Last Menstrual Period: Feb 15, 2018 Mechanism Of Injury: Blunt Trauma Onset/Duration: Started Hours Ago Timing: Constant Severity Initially: Moderate Severity Currently: Moderate Pain Location: Hand Character: Throbbing Aggravating Factor(s): Movement Alleviating Factor(s): Nothing Associated Signs & Symptoms: Positive: Bruising - Allergies/Home Medications Allergies/Adverse Reactions: Allergies Allergy/AdvReac Type Severity Reaction Status Date / Time acetaminophen Allergy Severe Airway Verified 04/07/18 18:38 [From Coricidin] Obstruction chlorpheniramine Allergy Severe Airway Verified 04/07/18 18:38 [From Coricidin] Obstruction Influenza Virus Vaccines Allergy Severe Airway Verified 04/07/18 18:38 Obstruction phenylpropanolamine Allergy Severe Airway Verified 04/07/18 18:38 [From Coricidin] Obstruction Adhesive Tape Allergy Mild Rash And Verified 04/07/18 18:38 Itching diphenhydramine Allergy Unknown Verified 04/07/18 18:38 [From Benadryl] Reaction Details Home Medications: Home Medications NK [No Home Medications Reported] 04/07/18 [History Confirmed 04/07/18] PMH/Surg Hx/FS Hx/Imm Hx Endocrine/Hematology History: Denies: Hx Diabetes, Hx Thyroid Disease Cardiovascular History: Reports: Other Cardiovascular Problems/Disorders - heart murmur Denies: Hx Hypertension, Hx Pacemaker/ICD Respiratory History: Reports: Hx Asthma - has not been on inhalers for a long time Denies: Hx Chronic Obstructive Pulmonary Disease (COPD) GI History: Denies: Hx Ulcer History: Denies: Hx Dialysis Sensory History: Reports: Hx Contacts or Glasses Denies: Hx Hearing Aid Opthamlomology History: Reports: Hx Contacts or Glasses Neurological History: Denies: Hx Developmental Delay Psychiatric History: Reports: Hx Anxiety, Hx Attention Deficit Hyperactivity Disorder, Hx Panic Disorder, Hx Community Mental Health Tx, Hx Substance Abuse - Surgical History Surgery Procedure, Year, and Place: EAR TUBES A CHILD - Immunization History Date of Tetanus Vaccine: utd Date of Influenza Vaccine: no Infectious Disease History: No Infectious Disease History: Denies: Hx Clostridium Difficile, Hx Hepatitis, Hx Human Immunodeficiency Virus (HIV), Hx of Known/Suspected MRSA, Hx Shingles, Hx Tuberculosis, Hx Known/ Suspected VRE, Hx Known/Suspected VRSA, History Other Infectious Disease, Traveled Outside the [place] in Last 30 Days - Family History Known Family History: Positive: None, Diabetes, Respiratory Disease - COPD, Other - [place] - Social History Alcohol Use: None Alcohol Amount: Sober for approximately 3 years Hx Substance Use: No Substance Use Type: Reports: None Hx Tobacco Use: Yes Smoking Status (MU): Former Smoker Type: Cigarettes Amount Used/How Often: 0- 1/2 ppd Length of Time of Smoking/Using Tobacco: 7 YEARS Have You Smoked in the Last Year: Yes Review of Systems Constitutional: Negative Eyes: Negative ENT: Negative Cardiovascular: Negative Respiratory: Negative Gastrointestinal: Negative Genitourinary: Negative Musculoskeletal: Negative Positive: Bruising Neurological: Negative Psychological: Normal All Other Systems Reviewed And Are Negative: Yes Physical Exam - Summary Physical Exam Summary: PMS intact distally on left hand. Bruising to the lateral 3 knuckles of left hand. Flexion and extension intact on all fingers. No pain with palpation flexion and extension of left wrist. No ecchymosis, erythema, deformity, swelling to left hand noted. Triage Information Reviewed: Yes Vital Signs On Initial Exam: Initial Vitals Temp Pulse Resp BP Pulse Ox 97.6 F 86 16 128/85 100 04/07/18 18:34 04/07/18 18:34 04/07/18 18:34 04/07/18 18:34 04/07/18 18:34 Vital Signs Reviewed: Yes Appearance: Positive: Well-Appearing Skin: Positive: Warm Head/Face: Positive: Normal Head/Face Inspection Eyes: Positive: Normal Neck: Positive: Supple Respiratory/Lung Sounds: Positive: Clear to Auscultation Cardiovascular: Positive: Normal Abdomen Description: Positive: Nontender Musculoskeletal: Positive: Normal Neurological: Positive: Normal Psychiatric: Positive: Normal AVPU Assessment: Alert - Hernandez Coma Scale Best Eye Response: 4 - Spontaneous Best Motor Response: 6 - Obeys Commands Best Verbal Response: 5 - Oriented Coma Scale Total: 15 Diagnostics - Vital Signs Vital Signs Temp Pulse Resp BP Pulse Ox 04/07/18 18:34 97.6 F 86 16 128/85 100 - Laboratory Lab Statement: Any lab studies that have been ordered have been reviewed, and results considered in the medical decision making process. Course/Dx - Course Course Of Treatment: Patient complains of dropping foot of bed onto back of left hand accidentally tonight. Denies any other injury, pain, symptoms. Physical exam:PMS intact distally on left hand. Bruising to the lateral 3 knuckles of left hand. Flexion and extension intact on all fingers. No pain with palpation flexion and extension of left wrist. No ecchymosis, erythema, deformity, swelling to left hand noted. Vital signs within normal limits. X- ray of left hand unremarkable. Likely contusion of left hand. Ibuprofen for pain. - Diagnoses Provider Diagnoses: Hand trauma Discharge - Sign-Out/Discharge Documenting (check all that apply): Patient Departure - Discharge Plan Condition: Stable Disposition: HOME Patient Education Materials: Contusion in Adults (ED) Referrals: Boyd Giordano MD [Primary Care Provider] - Zbigniew Hogue MD [Medical Doctor] - Additional Instructions: Rest, ice and ibuprofen for pain. If your symptoms persist more than for 5 days follow-up with orthopedics Dr. Amaro. Return to the ED for any new or worsening symptoms - Billing Disposition and Condition Condition: STABLE Disposition: Home
[2018-04-07 19:54] VITALS: BP 111/67
== END 2018-04-07 19:53 | disposition home or self-care (01) ==
LOC: ED 18:31
DX: S69.92XA Unspecified injury of left wrist, hand and finger(s), initial encounter (principal); W22.8XXA Striking against or struck by other objects, initial encounter; Y92.9 Unspecified place or not applicable; Z88.6 Allergy status to analgesic agent; Z88.7 Allergy status to serum and vaccine; Z88.8 Allergy status to other drugs, medicaments and biological substances; Z91.048 Other nonmedicinal substance allergy status; Z87.891 Personal history of nicotine dependence
CPT/HCPCS: 99282; A9270-GY

== ENCOUNTER 2018-04-19 07:16 | Emergency (ER) | payer OTHER ==
[2018-04-19 07:27] VITALS: BP 127/84
[2018-04-19 07:51] LABS: Influenza A Molecular NEGATIVE (Negative); Influenza B Molecular NEGATIVE (Negative)
--- NOTE | 2018-04-19 07:55 | UC ---
Respiratory Complaint HPI - HPI Summary HPI Summary: The patient is a 32-year-old female with a 24-hour history of severe myalgias fevers chills sore throat runny nose and rare cough. He has had nausea but no vomiting. She denies any chest pain or shortness of breath. 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 She has not been wheezing with this. He denies any UTI symptoms. - History of Current Complaint Chief Complaint: UCRespiratory Stated Complaint: SORE THROAT,RUNNY NOSE Time Seen by Provider: 04/19/18 07:30 Hx Obtained From: Patient Hx Last Menstrual Period: Onset/Duration: Sudden Onset, Lasting Hours Timing: Constant Severity Initially: Moderate Severity Currently: Moderate Pain Intensity: 7 Pain Scale Used: 0-10 Numeric Character: Cough: Nonproductive Aggravating Factors: Nothing Associated Signs And Symptoms: Positive: Fever, Chills, Nasal Congestion - Allergies/Home Medications Allergies/Adverse Reactions: Allergies Allergy/AdvReac Type Severity Reaction Status Date / Time acetaminophen Allergy Severe Airway Verified 04/19/18 07:27 [From Coricidin] Obstruction chlorpheniramine Allergy Severe Airway Verified 04/19/18 07:27 [From Coricidin] Obstruction Influenza Virus Vaccines Allergy Severe Airway Verified 04/19/18 07:27 Obstruction phenylpropanolamine Allergy Severe Airway Verified 04/19/18 07:27 [From Coricidin] Obstruction Adhesive Tape Allergy Mild Rash And Verified 04/19/18 07:27 Itching diphenhydramine Allergy Unknown Verified 04/19/18 07:27 [From Benadryl] Reaction Details Home Medications: Home Medications Ibuprofen TAB* [Advil TAB*] 200 mg PO Q6HR PRN 04/19/18 [History Confirmed 04/19] PMH/Surg Hx/FS Hx/Imm Hx Previously Healthy: Yes Respiratory History: Asthma - Surgical History Surgical History: Yes Surgery Procedure, Year, and Place: EAR TUBES A CHILD - Family History Known Family History: Positive: Diabetes, Respiratory Disease - COPD, Other - [place] - Social History Alcohol Use: None Alcohol Amount: Sober for approximately 3 years Substance Use Type: None Smoking Status (MU): Former Smoker Type: Cigarettes Amount Used/How Often: 0- 1/2 ppd Length of Time of Smoking/Using Tobacco: 7 YEARS Have You Smoked in the Last Year: Yes When Did the Patient Quit Smoking/Using Tobacco: vape occasionally - Immunization History Most Recent Influenza Vaccination: this season Most Recent Pneumonia Vaccination: none Review of Systems All Other Systems Reviewed And Are Negative: Yes Constitutional: Positive: Fever, Chills, Fatigue Skin: Positive: Negative Eyes: Positive: Negative ENT: Positive: Sore Throat, Ear Ache, Nasal Discharge, Sinus Congestion Respiratory: Positive: Cough Cardiovascular: Positive: Negative Gastrointestinal: Positive: Negative Genitourinary: Positive: Negative Motor: Positive: Negative Neurovascular: Positive: Negative Musculoskeletal: Positive: Myalgia Neurological: Positive: Headache Psychological: Positive: Negative Physical Exam Triage Information Reviewed: Yes Appearance: Well-Appearing, No Pain Distress, Well-Nourished Vital Signs: Initial Vital Signs Temp 101.6 F 04/19/18 07:20 Pulse 109 04/19/18 07:20 Resp 20 04/19/18 07:20 BP 127/84 04/19/18 07:20 Pulse Ox 100 04/19/18 07:20 Vital Signs Reviewed: Yes Eyes: Positive: Conjunctiva Clear ENT: Positive: Hearing grossly normal, Pharyngeal erythema, Uvula midline. Negative: Nasal congestion, Nasal drainage, Tonsillar swelling, Tonsillar exudate, Trismus, Sinus tenderness Neck: Positive: Supple, Nontender, Enlarged Nodes @ - ant cerv Respiratory: Positive: Lungs clear, Normal breath sounds, No respiratory distress, No accessory muscle use Cardiovascular: Positive: RRR, No Murmur, Tachycardia Musculoskeletal: Positive: ROM Intact, No Edema Neurological: Positive: Alert Psychological Exam: Normal Skin Exam: Normal UC Diagnostic Evaluation - Laboratory O2 Sat by Pulse Oximetry: 100 - normal/not hypoxic Diagnostic Studies Comment: strep (-), influenza (-) Respiratory Course/Dx - Differential Dx/Diagnosis Provider Diagnosis: Influenza-like illness Discharge - Sign-Out/Discharge Documenting (check all that apply): Patient Departure All imaging exams completed and their final reports reviewed: No Studies - Discharge Plan Condition: Stable Disposition: HOME Prescriptions: Ondansetron TAB* [Zofran Tab*] 4 mg PO Q6H PRN #10 tab PRN Reason: Nausea Oseltamivir CAP* [Tamiflu CAP*] 75 mg PO BID #10 cap Patient Education Materials: Influenza (ED) Forms: *Work Release Referrals: Boyd Giordano MD [Primary Care Provider] - 4 Days (if not better) Additional Instructions: rest fluid robitussin DM advil zofran recheck for worsening symptoms - Billing Disposition and Condition Condition: STABLE Disposition: Home
[2018-04-19] MEDS ORDERED: Ondansetron ODT TAB* 4 MG PO ONE (08:02)
== END 2018-04-19 08:20 | disposition home or self-care (01) ==
LOC: UCEAST 07:16
DX: J11.1 Influenza due to unidentified influenza virus with other respiratory manifestations (principal); J45.909 Unspecified asthma, uncomplicated; Z88.7 Allergy status to serum and vaccine; Z88.8 Allergy status to other drugs, medicaments and biological substances; Z88.6 Allergy status to analgesic agent; Z91.09 Other allergy status, other than to drugs and biological substances; Z87.891 Personal history of nicotine dependence
CPT/HCPCS: 87651; 99212; A9270-GY; G0463

== ENCOUNTER 2018-06-11 11:01 | Emergency (ER) | payer OTHER ==
[2018-06-11 11:45] VITALS: BP 123/75
--- NOTE | 2018-06-11 14:22 | UC ---
Course/Dx - Diagnoses Provider Diagnoses: Patient left without being seen Discharge - Sign-Out/Discharge Documenting (check all that apply): Post-Discharge Follow Up All imaging exams completed and their final reports reviewed: No Studies - Discharge Plan Condition: Stable Disposition: LEFT WITHOUT BEING SEEN Referrals: Boyd Giordano MD [Primary Care Provider] - - Billing Disposition and Condition Condition: STABLE Disposition: Left Without Being Seen
== END 2018-06-11 12:10 | disposition left against medical advice (07) ==
LOC: UCCORT 11:01
DX: Z53.21 Procedure and treatment not carried out due to patient leaving prior to being seen by health care provider (principal)

== ENCOUNTER 2018-06-11 16:53 | Emergency (ER) | payer OTHER ==
[2018-06-11 17:05] VITALS: BP 111/70
[2018-06-11] MEDS ORDERED: Ibuprofen TAB* 600 MG PO ONE (17:18)
--- NOTE | 2018-06-11 17:21 | UC ---
Hand/Wrist HPI - HPI Summary HPI Summary: 32 y/o female presents to the urgent care c/o right hand pain radiating to the wrist and forearm s/p punching out a wall out of anger last night around 2030 last night. Pt reports Hx of fracture to the Rt hand in 2016. Pt reports she applied ice and took ibuprofen PO last night to alleviate symptoms. This morning when she woke up pain was worse and w/ mild numbness and tingling sensation over the hand. She can move her finger, but it is painful. Pt denies fever, SOb, chest pain, abdominal pain, N/V/D. - History Of Current Complaint Chief Complaint: UCUpperExtremity Stated Complaint: HAND INJURY Time Seen by Provider: 06/11/18 17:08 Hx Obtained From: Patient Hx Last Menstrual Period: 06/11/18 ?: No Onset/Duration: Sudden Onset, Lasting Days - 1 day, Still Present, Worse Since - this morning Severity Initially: Moderate Severity Currently: Moderate Pain Intensity: 8 Pain Scale Used: 0-10 Numeric Character Of Pain: Throbbing Aggravating Factor(s): Movement, Lifting, Twisting, Pulling Alleviating Factor(s): Rest, Ice, OTC Meds Associated Signs And Symptoms: Positive: Swelling - mild, Numbness/Tingling - mild. Negative: Redness, Bruising, Fever, Weakness Related History: Dominant Hand Right - Allergies/Home Medications Allergies/Adverse Reactions: Allergies Allergy/AdvReac Type Severity Reaction Status Date / Time acetaminophen Allergy Severe Airway Verified 06/11/18 17:04 [From Coricidin] Obstruction chlorpheniramine Allergy Severe Airway Verified 06/11/18 17:04 [From Coricidin] Obstruction Influenza Virus Vaccines Allergy Severe Airway Verified 06/11/18 17:04 Obstruction phenylpropanolamine Allergy Severe Airway Verified 06/11/18 17:04 [From Coricidin] Obstruction Adhesive Tape Allergy Mild Rash And Verified 06/11/18 17:04 Itching diphenhydramine Allergy Unknown Verified 06/11/18 17:04 [From Benadryl] Reaction Details Home Medications: Home Medications Sulfamethox/Trimethoprim SS* [Bactrim SS 400/80 TAB*] 1 tab PO BID 06/11/18 [ History Confirmed 06/11/18] PMH/Surg Hx/FS Hx/Imm Hx Previously Healthy: Yes Other Cardiovascular History: Heart murmur, 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 Respiratory History: Asthma - Surgical History Surgical History: Yes Surgery Procedure, Year, and Place: EAR TUBES A CHILD - Family History Known Family History: Positive: Hypertension, Diabetes, Respiratory Disease - COPD, Other - [place] - Social History Occupation: Employed Full-time Lives: With Family Alcohol Use: None Alcohol Amount: Sober for approximately 3 years Substance Use Type: None Smoking Status (MU): Light Every Day Tobacco Smoker Type: eCigarettes Amount Used/How Often: 3mg Length of Time of Smoking/Using Tobacco: 7 YEARS Have You Smoked in the Last Year: Yes When Did the Patient Quit Smoking/Using Tobacco: vape occasionally - Immunization History Most Recent Influenza Vaccination: this season Most Recent Pneumonia Vaccination: none Review of Systems All Other Systems Reviewed And Are Negative: Yes Constitutional: Positive: Negative Skin: Positive: Negative Eyes: Positive: Negative ENT: Positive: Negative Respiratory: Positive: Negative Cardiovascular: Positive: Negative Gastrointestinal: Positive: Negative Genitourinary: Positive: Negative Motor: Positive: Negative Neurovascular: Positive: Negative Musculoskeletal: Positive: Decreased ROM - RT hand, Other: - RT hand pain s/p punchin out a wall last night Neurological: Positive: Negative Psychological: Positive: Negative Is Patient Immunocompromised?: No Physical Exam - Summary Physical Exam Summary: Vital Signs Reviewed: Yes General: Well-Appearing, No Pain Distress, Well-Nourished thin female w/o any apparent distress Eyes: Positive: Conjunctiva Clear - PERRLA, EOMI ENT: Positive: Normal ENT inspection, Hearing grossly normal, Pharynx normal, TMs normal, Uvula midline Neck: Positive: Supple, Nontender, No Lymphadenopathy Respiratory: Positive: Chest non-tender, Lungs clear, Normal breath sounds, No respiratory distress Cardiovascular: Positive: RRR, No Murmur, Pulses Normal, Brisk Capillary Refill Abdomen Description: Positive: Nontender, No Organomegaly, Soft. Negative: CVA Tenderness (R), CVA Tenderness (L) Bowel Sounds: Positive: Present Musculoskeletal: Positive: Strength Intact, Other: Neurological Exam: Normal Musculoskeletal: RT hand Positive: Strength Intact, No Edema, Hand/Fingers: the R hand is without obvious asymmetry or deformity when compared to the L hand. mild swelling around dorsal side of #5 metacarpal and MCPJ, no erythema, atrophy, or obvious deformity. No surface trauma, open wounds,bony deformity. Normal cascade of fingers. Normal flexion and extension of fingers, except for #4 and 5th phalanx due to pain. FDS and FDP intact against resistance. No focal fullness, throbbing pain, swelling of finger tip. Pulses and capillary refill WNL, positive reflexes and sensation intact Psychological Exam: Normal Skin Exam: Normal Triage Information Reviewed: Yes Vital Signs: Initial Vital Signs Temp 98.6 F 06/11/18 17:01 Pulse 69 06/11/18 17:01 Resp 18 06/11/18 17:01 BP 111/70 06/11/18 17:01 Pulse Ox 100 06/11/18 17:01 Hand/Wrist Course/Dx - Course Course Of Treatment: 32 y/o female presents to the urgent care c/o right hand pain radiating to the wrist and forearm s/p punching out a wall out of anger last night around 2030 last night. Pt reports Hx of fracture to the Rt hand in 2015. Pt reports she applied ice and took ibuprofen PO last night to alleviate symptoms. This morning when she woke up pain was worse and w/ mild numbness and tingling sensation over the hand. She can move her finger, but it is painful. Pt denies fever, SOb, chest pain, abdominal pain, N/V/D. Hx obtained . Pt given ibuprofen PO for pain by nurse, pt tolerated well medication and pain decrease. RT hand X- ray ordered. Impression:NO ACUTE OSSEOUS INJURY. IF SYMPTOMS PERSIST, RECOMMEND REPEAT IMAGING. Probability a Rt hand sprain. Pts wrist immobilized with cock -up splint. Advised RICE: Rest, Ice, elevation, Ibuprofen PO. There was no neurovascular compromise after splint application placed by nurse; the splint was in good alignment and the pt had good sensation and capillary refill at the time of discharge.Pt advised to f/u w/ Orthopedic Dr Ignacio if not improvement of symptoms in 1 week. Pt understood and agreed w/ plan of care. - Differential Dx/Diagnosis Differential Diagnosis/HQI/PQRI: Contusion, Dislocation, Fracture, Sprain, Strain, Tendonitis Provider Diagnosis: Injury of right hand, Sprain of right hand Discharge - Sign-Out/Discharge Documenting (check all that apply): Patient Departure - d/c home All imaging exams completed and their final reports reviewed: Yes - Discharge Plan Condition: Stable Disposition: HOME Patient Education Materials: Hand Sprain (ED) Referrals: Boyd Giordano MD [Primary Care Provider] - 1 Week Mariaa Ignacio MD [Medical Doctor] - 1 Week Additional Instructions: 1-Please take Ibuprofen PO q6-8hrs prn after meals as directed to alleviate pain and swelling. 2-Please apply ice, keep your hand immobilized with the splint. Avoid heavy lifting or strenuous exercise. 3- Please f/u with Orthopedic Dr Najera or your PCP in 1 week to repeat image if not improvement of symptoms for further evaluation and treatment. - Billing Disposition and Condition Condition: STABLE Disposition: Home
== END 2018-06-11 18:09 | disposition home or self-care (01) ==
LOC: UCEAST 16:53
DX: S69.91XA Unspecified injury of right wrist, hand and finger(s), initial encounter (principal); S63.91XA Sprain of unspecified part of right wrist and hand, initial encounter; F17.290 Nicotine dependence, other tobacco product, uncomplicated; J45.909 Unspecified asthma, uncomplicated; Z91.09 Other allergy status, other than to drugs and biological substances; Z88.8 Allergy status to other drugs, medicaments and biological substances; Z88.7 Allergy status to serum and vaccine; W22.01XA Walked into wall, initial encounter; Y92.9 Unspecified place or not applicable
CPT/HCPCS: 99213; A9270-GY; G0463

== ENCOUNTER 2018-07-17 14:18 | Emergency (ER) | payer OTHER ==
[2018-07-17 14:43] VITALS: BP 105/59
--- NOTE | 2018-07-17 14:59 | UC ---
Throat Pain/Nasal Mitesh HPI - HPI Summary HPI Summary: 32-year-old female presents with 4-5 day history of headache, nasal congestion, sinus pressure, bilateral ear fullness, and sore throat. Denies fever, chills, visual disturbances, photophobia, dizziness, tinnitus, vertigo, dysphagia, chest pain, shortness of breath, abdominal pain, nausea, vomiting, or diarrhea. - History of Current Complaint Chief Complaint: UCHeadache Stated Complaint: HEADACHE SORE THROAT Time Seen by Provider: 07/17/18 14:39 Hx Obtained From: Patient Hx Last Menstrual Period: 06/11/18 Pain Intensity: 5 - Allergies/Home Medications Allergies/Adverse Reactions: Allergies Allergy/AdvReac Type Severity Reaction Status Date / Time acetaminophen Allergy Severe Airway Verified 07/17/18 14:43 [From Coricidin] Obstruction chlorpheniramine Allergy Severe Airway Verified 07/17/18 14:43 [From Coricidin] Obstruction Influenza Virus Vaccines Allergy Severe Airway Verified 07/17/18 14:43 Obstruction phenylpropanolamine Allergy Severe Airway Verified 07/17/18 14:43 [From Coricidin] Obstruction Adhesive Tape Allergy Mild Rash And Verified 07/17/18 14:43 Itching diphenhydramine Allergy Unknown Verified 07/17/18 14:43 [From Benadryl] Reaction Details PMH/Surg Hx/FS Hx/Imm Hx Previously Healthy: Yes - Denies significant PMH - Surgical History Surgical History: Yes Surgery Procedure, Year, and Place: EAR TUBES A CHILD - Family History Known Family History: Positive: Hypertension, Diabetes, Respiratory Disease - COPD, Other - [place] - Social History Occupation: Employed Full-time Lives: Alone Alcohol Use: None Alcohol Amount: Sober for approximately 3 years Substance Use Type: None Smoking Status (MU): Light Every Day Tobacco Smoker Type: eCigarettes Amount Used/How Often: 3mg Length of Time of Smoking/Using Tobacco: 7 YEARS Have You Smoked in the Last Year: Yes When Did the Patient Quit Smoking/Using Tobacco: vape occasionally - Immunization History Most Recent Influenza Vaccination: this season Most Recent Pneumonia Vaccination: none Review of Systems All Other Systems Reviewed And Are Negative: Yes Constitutional: Negative: Fever, Chills Skin: Negative: Rash Eyes: Negative: Blurred Vision, Diplopia, Drainage, Eye Redness, Photophobia ENT: Positive: Sore Throat, Nasal Discharge, Sinus Congestion, Sinus Pain/ Tenderness. Negative: Ear Ache Respiratory: Negative: Shortness Of Breath, Cough Cardiovascular: Negative: Palpitations, Chest Pain Gastrointestinal: Negative: Abdominal Pain, Vomiting, Diarrhea, Nausea Genitourinary: Positive: Negative Musculoskeletal: Positive: Negative Neurological: Positive: Headache. Negative: Weakness, Paresthesia, Numbness Is Patient Immunocompromised?: No Physical Exam - Summary Physical Exam Summary: GENERAL APPEARANCE: Well developed, well nourished, alert and cooperative, and appears to be in no acute distress. EYES: Conjunctiva clear. No drainage. EARS: External auditory canals and tympanic membranes clear, hearing grossly intact. NOSE: Mild-moderated nasal congestion. No nasal discharge. Maxillary sinus tenderness. THROAT: Mild pharyngeal erythema. No tonsilar inflammation, swelling, exudate, or lesions. Uvula midline. NECK: Neck supple, non-tender without lymphadenopathy. CARDIAC: Normal S1 and S2. No S3, S4 or murmurs. Rhythm is regular. There is no peripheral edema, cyanosis or pallor. Extremities are warm and well perfused. Capillary refill is less than 2 seconds. Peripheral pulses intact. LUNGS: Clear to auscultation without rales, rhonchi, wheezing or diminished breath sounds. ABDOMEN: Positive bowel sounds. Soft, nondistended, nontender. No guarding or rebound. No masses or hepatosplenomegally. MUSKULOSKELETAL: ROM intact to all extremities. No joint erythema or tenderness. Normal muscular development. Normal gait. SKIN: Skin normal color, texture and turgor with no lesions or eruptions. Triage Information Reviewed: Yes Vital Signs: Initial Vital Signs Temp 99.0 F 07/17/18 14:39 Pulse 88 07/17/18 14:39 Resp 18 07/17/18 14:39 BP 105/59 07/17/18 14:39 Pulse Ox 99 07/17/18 14:39 Vital Signs Reviewed: Yes Throat Pain/Nasal Course/Dx - Course Course Of Treatment: 32-year-old female presents with 4-5 day history of headache, nasal congestion, sinus pressure, bilateral ear fullness, and sore throat. Denies fever, chills, visual disturbances, photophobia, dizziness, tinnitus, vertigo, dysphagia, chest pain, shortness of breath, abdominal pain, nausea, vomiting, or diarrhea. Afebrile. Vital signs stable. Exam remarkable for mild to moderate nasal congestion, maxillary sinus tenderness, and pharyngeal erythema without tonsillar swelling or exudate. Recommending symptomatic treatment for an acute sinusitis including saline rinses, fluticasone nasal spray, [id number] decongestant, and [id number] analgesics. She is to return here or follow up with her primary care provider in 5 days if symptoms do not improve. Anticipatory guidance and warning symptoms were reviewed with the patient. Verbalizes understanding and agrees with plan of care. - Differential Dx/Diagnosis Differential Diagnosis/HQI/PQRI: Influenza, Pharyngitis, Tonsillitis, URI Provider Diagnosis: Acute maxillary sinusitis Discharge - Sign-Out/Discharge Documenting (check all that apply): Patient Departure All imaging exams completed and their final reports reviewed: No Studies - Discharge Plan Condition: Stable Disposition: HOME Prescriptions: Fluticasone NASAL SPRAY 50MCG* [Flonase NASAL SPRAY 50MCG*] 2 spray BOTH NARES DAILY #1 btl Patient Education Materials: Sinusitis (ED) Referrals: Boyd Giordano MD [Primary Care Provider] - 5 Days Additional Instructions: The rapid strep test performed in the clinic today was negative. Your history and exam are consistent with a sinus infection. Sinus infections without fever are most often caused by a viral infection. Viral infections do not respond to antibiotics and are limited to the treatment of symptoms. Viral infections typically run their course in 7-10 days. Drink plenty of fluids to avoid dehydration especially if you are running any fever. Use a saline rinse kit such as Neti Pot or NeilMed at least twice a day to help thin secretions and promote drainage of the sinuses. Use fluticasone (Flonase) nasal spray 2 sprays each nostril once daily. Take an over the counter decongestant such as Sudafed to help with the congestion and pressure. Take over the counter acetaminophen (Tylenol) or ibuprofen (Advil, Motrin) according to directions as needed for pain or fever. Use salt water gargles several times a day if you have a sore throat. You may also use Chloraseptic spray or Cepacol lonzenges according to directions which contain a numbing medication and can provide some temporary relief from your sore throat. Follow up with your primary care provider in 5 days if symptoms persist. Seek immediate medical attention in the emergency room if you have fever greater than 100.5 F despite taking acetaminophen or ibuprofen, have chest pain , difficulty breathing, are unable to swallow, worsening headache, visual disturbances, dizziness, you lose consciousness, or have any worsening of symptoms. - Billing Disposition and Condition Condition: STABLE Disposition: Home
== END 2018-07-17 16:00 | disposition home or self-care (01) ==
LOC: UCEAST 14:18
DX: J01.00 Acute maxillary sinusitis, unspecified (principal); H93.8X3 Other specified disorders of ear, bilateral; J02.9 Acute pharyngitis, unspecified; Z88.6 Allergy status to analgesic agent; Z88.7 Allergy status to serum and vaccine; Z88.8 Allergy status to other drugs, medicaments and biological substances; Z91.048 Other nonmedicinal substance allergy status; F17.290 Nicotine dependence, other tobacco product, uncomplicated
CPT/HCPCS: 87651; 99212; G0463

== ENCOUNTER 2018-07-23 16:22 | Emergency (ER) | payer OTHER ==
[2018-07-23 16:58] VITALS: BP 100/68
--- NOTE | 2018-07-23 17:01 | UC ---
Skin Complaint HPI - HPI Summary HPI Summary: 32 yo female presents with ?abscess in left axilla. She tells me that she shaves under her arms and over the last 2-3 days has noticed a growing red bump that is tender. No hx of MRSA that she is aware of. No fever or chills - History of Current Complaint Chief Complaint: UCSkin Time Seen by Provider: 07/23/18 17:01 Stated Complaint: ARM COMPLAINT Hx Obtained From: Patient Hx Last Menstrual Period: 1 WEEK AGO Onset/Duration: Gradual Onset Onset Severity: Mild Current Severity: Mild Pain Intensity: 3 Pain Scale Used: 0-10 Numeric - Allergy/Home Medications Allergies/Adverse Reactions: Allergies Allergy/AdvReac Type Severity Reaction Status Date / Time acetaminophen Allergy Severe Airway Verified 07/23/18 16:58 [From Coricidin] Obstruction chlorpheniramine Allergy Severe Airway Verified 07/23/18 16:58 [From Coricidin] Obstruction Influenza Virus Vaccines Allergy Severe Airway Verified 07/23/18 16:58 Obstruction phenylpropanolamine Allergy Severe Airway Verified 07/23/18 16:58 [From Coricidin] Obstruction Adhesive Tape Allergy Mild Rash And Verified 07/23/18 16:58 Itching diphenhydramine Allergy Unknown Verified 07/23/18 16:58 [From Benadryl] Reaction Details PMH/Surg Hx/FS Hx/Imm Hx - Additional Past Medical History Additional PMH: None - Surgical History Surgical History: Yes Surgery Procedure, Year, and Place: EAR TUBES A CHILD - Family History Known Family History: Positive: Hypertension, Diabetes, Respiratory Disease - COPD, Other - [place] - Social History Alcohol Use: None Alcohol Amount: Sober for approximately 3 years Substance Use Type: None Smoking Status (MU): Light Every Day Tobacco Smoker Type: eCigarettes Amount Used/How Often: 3mg Length of Time of Smoking/Using Tobacco: 7 YEARS Have You Smoked in the Last Year: Yes When Did the Patient Quit Smoking/Using Tobacco: vape - Immunization History Most Recent Influenza Vaccination: this season Most Recent Pneumonia Vaccination: none Review of Systems All Other Systems Reviewed And Are Negative: Yes Constitutional: Positive: Negative Skin: Positive: Other - Left axilla abscess Respiratory: Positive: Negative Cardiovascular: Positive: Negative Neurovascular: Positive: Negative Neurological: Positive: Negative Psychological: Positive: Negative Physical Exam - Summary Physical Exam Summary: GENERAL: NAD. WDWN. No pain distress. SKIN: Left axilla: 1.0cm abscess TTP. Mild surrounding erythema. No streaking. NECK: Supple. Nontender. No lymphadenopathy. CHEST: No accessory muscle use. Breathing comfortably and in no distress. CV: Pulses intact. Cap refill <2seconds NEURO: Alert. PSYCH: Age appropriate behavior. Triage Information Reviewed: Yes Vital Signs: Initial Vital Signs Temp 98.6 F 07/23/18 16:54 Pulse 71 07/23/18 16:54 Resp 16 07/23/18 16:54 BP 100/68 07/23/18 16:54 Pulse Ox 100 07/23/18 16:54 Vital Signs Reviewed: Yes Procedures - Incision and Drainage Left Axilla Anesthesia: Local - 2% lido without epi, Lidocaine Instrument(s): Scalpel - #11 Packing: Other - none Course/Dx - Course Course Of Treatment: The procedure was explained to the pt and all questions were answered. A time out was performed, witnessed, and signed. The area was cleansed with an alcohol pad. 1mL 2% lidocaine without epi was administered and good anesthetization was achieved. A #11 blade was used to make a 3mm vertical linear incision at the central most part of the abscess. Yellow purulent matter was able to be expressed. Pt tolerated well. Bandaged with a band-aid. Will place her on keflex. - Diagnoses Provider Diagnosis: Abscess of left axilla Discharge - Sign-Out/Discharge Documenting (check all that apply): Patient Departure All imaging exams completed and their final reports reviewed: No Studies - Discharge Plan Condition: Stable Disposition: HOME Prescriptions: Cephalexin CAP* [Keflex CAP*] 500 mg PO BID #10 cap Patient Education Materials: Abscess (ED) Referrals: Boyd Giordano MD [Primary Care Provider] - Additional Instructions: If you develop a fever, shortness of breath, chest pain, new or worsening symptoms - please call your PCP or go to the ED immediately. 1) Change the band-aid daily until well healed (likely 3-5 days) - Billing Disposition and Condition Condition: STABLE Disposition: Home
[2018-07-23] MEDS ORDERED: Lidocaine 2% PF * 5 ML VIAL INJ ONE (17:08)
== END 2018-07-23 17:35 | disposition home or self-care (01) ==
LOC: UCEAST 16:22
DX: L02.412 Cutaneous abscess of left axilla (principal); Z88.6 Allergy status to analgesic agent; Z88.7 Allergy status to serum and vaccine; Z88.8 Allergy status to other drugs, medicaments and biological substances; Z91.048 Other nonmedicinal substance allergy status; F17.200 Nicotine dependence, unspecified, uncomplicated
CPT/HCPCS: 10060; 99212; G0463

== ENCOUNTER 2018-08-22 15:35 | Emergency (ER) | payer OTHER ==
[2018-08-22 15:45] VITALS: BP 106/60
--- NOTE | 2018-08-22 16:43 | UC ---
Skin Complaint HPI - HPI Summary HPI Summary: 32 yo female awoke last pm with pain and itching right post thigh Thinks she was stung or bite by an insect Now just with pain early last month had I &D of abscess - History of Current Complaint Chief Complaint: UCSkin Time Seen by Provider: 08/22/18 16:42 Stated Complaint: BUG BITE Hx Obtained From: Patient Hx Last Menstrual Period: 08/18/18 Onset/Duration: Sudden Onset, Lasting Hours Timing: Constant Onset Severity: Mild Current Severity: None Pain Intensity: 4 Pain Scale Used: 0-10 Numeric Location: Discrete Character: Swelling, Pruritus, Pain, Redness, Raised Aggravating Factor(s): Touch Alleviating Factor(s): Nothing Associated Signs & Symptoms: Positive: Tenderness. Negative: Vomiting, Numbness , Thirst, Diaphoresis, Weakness, Pallor, Shivering, Difficulty Breathing, Fever , Chills, Cough, Wheezing, Chest Pain, Hoarseness, Throat Tightening, Rash, Abdominal Pain, Lightheadedness, Syncope, Drainage, Bruising, Red Streaks, Joint Swelling - Allergy/Home Medications Allergies/Adverse Reactions: Allergies Allergy/AdvReac Type Severity Reaction Status Date / Time acetaminophen Allergy Severe Airway Verified 08/22/18 15:45 [From Coricidin] Obstruction chlorpheniramine Allergy Severe Airway Verified 08/22/18 15:45 [From Coricidin] Obstruction Influenza Virus Vaccines Allergy Severe Airway Verified 08/22/18 15:45 Obstruction phenylpropanolamine Allergy Severe Airway Verified 08/22/18 15:45 [From Coricidin] Obstruction Adhesive Tape Allergy Mild Rash And Verified 08/22/18 15:45 Itching diphenhydramine Allergy Unknown Verified 08/22/18 15:45 [From Benadryl] Reaction Details PMH/Surg Hx/FS Hx/Imm Hx Previously Healthy: Yes - Surgical History Surgical History: Yes Surgery Procedure, Year, and Place: EAR TUBES A CHILD - Family History Known Family History: Positive: Hypertension, Diabetes, Respiratory Disease - COPD, Other - [place] - Social History Alcohol Use: None Alcohol Amount: Sober for approximately 3 years Substance Use Type: None Smoking Status (MU): Former Smoker Type: eCigarettes Amount Used/How Often: 3mg Length of Time of Smoking/Using Tobacco: 7 YEARS Have You Smoked in the Last Year: Yes When Did the Patient Quit Smoking/Using Tobacco: vape - Immunization History Most Recent Influenza Vaccination: this season Most Recent Pneumonia Vaccination: none Review of Systems All Other Systems Reviewed And Are Negative: Yes Constitutional: Positive: Negative Skin: Positive: Other - bite Eyes: Positive: Negative ENT: Positive: Negative Respiratory: Positive: Negative Cardiovascular: Positive: Negative Gastrointestinal: Positive: Negative Genitourinary: Positive: Negative Motor: Positive: Negative Neurovascular: Positive: Negative Musculoskeletal: Positive: Negative Neurological: Positive: Negative Psychological: Positive: Negative Physical Exam Triage Information Reviewed: Yes Appearance: Well-Appearing, No Pain Distress, Well-Nourished Vital Signs: Initial Vital Signs Temp 98.7 F 08/22/18 15:41 Pulse 66 08/22/18 15:41 Resp 16 08/22/18 15:41 BP 106/60 08/22/18 15:41 Pulse Ox 98 08/22/18 15:41 Vital Signs Reviewed: Yes Eyes: Positive: Conjunctiva Clear ENT: Positive: Hearing grossly normal. Negative: Pharyngeal erythema, Nasal congestion, Nasal drainage, Tonsillar swelling, Tonsillar exudate, Trismus, Muffled voice, Hoarse voice Neck: Positive: Supple, Nontender, No Lymphadenopathy Respiratory: Positive: Lungs clear, Normal breath sounds, No respiratory distress, No accessory muscle use Cardiovascular: Positive: RRR, No Murmur, Pulses Normal Abdomen Description: Positive: Nontender, No Organomegaly Musculoskeletal: Positive: ROM Intact, No Edema Neurological: Positive: Alert Psychological Exam: Normal Skin Exam: Other - see image Images Front/Back of Body, Lg ([place]): 1 - punctate center that looks like a sting surround by 3 cm area of induration and redness Course/Dx - Diagnoses Provider Diagnosis: Local reaction to insect sting Discharge - Sign-Out/Discharge Documenting (check all that apply): Patient Departure All imaging exams completed and their final reports reviewed: No Studies - Discharge Plan Condition: Stable Disposition: HOME Prescriptions: DOXYcycline CAP(*) [DOXYcycline 100MG CAP(*)] 100 mg PO BID #14 cap Patient Education Materials: Insect Bite or Sting (ED) Referrals: Boyd Giordano MD [Primary Care Provider] - 5 Days (if not better) Additional Instructions: cool compresses - Billing Disposition and Condition Condition: STABLE Disposition: Home
== END 2018-08-22 17:05 | disposition home or self-care (01) ==
LOC: UCEAST 15:35
DX: T63.481A Toxic effect of venom of other arthropod, accidental (unintentional), initial encounter (principal); Y92.9 Unspecified place or not applicable
CPT/HCPCS: 99212; G0463

== ENCOUNTER → 2018-08-30 00:07 | Emergency (ER) | payer OTHER ==
[~2018-08-30 00:07] MED LIST: Iohexol 300* (CONTRAST) 10 ML SDV IV ONE; Ondansetron ODT TAB* 4 MG PO ONE; Sulfamethox/Trimethoprim DS 800/160* TAB PO ONE
[2018-08-30 00:37] LABS: ABS Basophils 0.1 10^3/ul (0-0.2); ABS Eosinophils 0.2 10^3/ul (0-0.6); ABS Lymphocytes 2.8 10^3/ul (1.0-4.8); ABS Monocytes 0.6 10^3/ul (0-0.8); ABS Neutrophils 2.8 10^3/ul (1.5-7.7); Eosinophil % 3.2 %; Hematocrit 33 % (35-47); Hemoglobin 10.9 g/dL (12.0-16.0); Lymphocyte % 43.5 %; Mean Corpuscular HGB Conc 34 g/dL (31-36); Mean Corpuscular Hemoglobin 28 pg (27-31); Mean Corpuscular Volume 84 fL (80-97); Mean Platelet Volume 10.1 fL (7.4-10.4); Nucleated Red Blood Cells % 0.1; Platelet Count 141 10^3/uL (150-450); Red Blood Count 3.89 10^6 /uL (3.70-4.87); Red Cell Distribution Width 15 % (10-15); White Blood Count 6.3 10^3/uL (3.5-10.8)
--- NOTE | 2018-08-30 00:45 | ED ---
Abdominal Pain/Female - HPI Summary HPI Summary: Patient complains of fever up to 101.42 days, sudden onset right lower quadrant pain tonight with associated nausea. Pain worse with nothing, better with nothing. 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 Pain currently mild, at worst 7/ 10 in hour ago. Denies fever, cough, sore throat, CP, SOB, V/D, change in urine , change in BM, vaginal symptoms. Also complains history is provided by 1 week ago for which she took doxycycline. Patient states she quit after 2-1/2 days because it was making her nauseous. Last doxycycline taking 3 days ago. Medical history is none. Abdominal surgical history is none. Patient sexually active with female partner. - History of Current Complaint Chief Complaint: EDAbdPain Stated Complaint: FEVER/ABD PAIN PER PT Time Seen by Provider: 08/30/18 00:24 Hx Obtained From: Patient Hx Last Menstrual Period: 08/18/18 Onset/Duration: Sudden Onset, Lasting Hours Timing: Constant Severity Initially: Moderate Severity Currently: Mild Pain Intensity: 3 Pain Scale Used: 0-10 Numeric Location: Discrete At: RLQ Radiates: No Character: Sharp Aggravating Factor(s): Nothing Alleviating Factor(s): Nothing Associated Signs and Symptoms: Positive: Nausea Allergies/Adverse Reactions: Allergies Allergy/AdvReac Type Severity Reaction Status Date / Time acetaminophen Allergy Severe Airway Verified 08/30/18 00:11 [From Coricidin] Obstruction chlorpheniramine Allergy Severe Airway Verified 08/30/18 00:11 [From Coricidin] Obstruction Influenza Virus Vaccines Allergy Severe Airway Verified 08/30/18 00:11 Obstruction phenylpropanolamine Allergy Severe Airway Verified 08/30/18 00:11 [From Coricidin] Obstruction Adhesive Tape Allergy Mild Rash And Verified 08/30/18 00:11 Itching diphenhydramine Allergy Unknown Verified 08/30/18 00:11 [From Benadryl] Reaction Details PMH/Surg Hx/FS Hx/Imm Hx Endocrine/Hematology History: Denies: Hx Diabetes, Hx Thyroid Disease Cardiovascular History: Reports: Other Cardiovascular Problems/Disorders - heart murmur Denies: Hx Hypertension, Hx Pacemaker/ICD Respiratory History: Reports: Hx Asthma Denies: Hx Chronic Obstructive Pulmonary Disease (COPD) GI History: Denies: Hx Ulcer History: Denies: Hx Dialysis Sensory History: Reports: Hx Contacts or Glasses Denies: Hx Hearing Aid Opthamlomology History: Reports: Hx Contacts or Glasses Neurological History: Denies: Hx Developmental Delay Psychiatric History: Reports: Hx Anxiety, Hx Attention Deficit Hyperactivity Disorder, Hx Panic Disorder, Hx Community Mental Health Tx, Hx Substance Abuse - Surgical History Surgery Procedure, Year, and Place: EAR TUBES A CHILD - Immunization History Date of Tetanus Vaccine: utd Date of Influenza Vaccine: no Infectious Disease History: No Infectious Disease History: Denies: Hx Clostridium Difficile, Hx Hepatitis, Hx Human Immunodeficiency Virus (HIV), Hx of Known/Suspected MRSA, Hx Shingles, Hx Tuberculosis, Hx Known/ Suspected VRE, Hx Known/Suspected VRSA, History Other Infectious Disease, Traveled Outside the [place] in Last 30 Days - Family History Known Family History: Positive: Hypertension, Diabetes, Respiratory Disease - COPD, Other - CA - Social History Alcohol Use: None Alcohol Amount: Sober for approximately 3 years Hx Substance Use: No Substance Use Type: Reports: None Hx Tobacco Use: Yes Smoking Status (MU): Former Smoker Type: eCigarettes Amount Used/How Often: 3mg Length of Time of Smoking/Using Tobacco: 7 YEARS Have You Smoked in the Last Year: Yes Review of Systems Constitutional: Negative Eyes: Negative ENT: Negative Cardiovascular: Negative Respiratory: Negative Positive: Abdominal Pain, Nausea Genitourinary: Negative Musculoskeletal: Negative Skin: Negative Neurological: Negative Psychological: Normal All Other Systems Reviewed And Are Negative: Yes Physical Exam - Summary Physical Exam Summary: Pain with palpation of right lower quadrant and right upper quadrant.. Abdominal exam otherwise unremarkable. Lung sounds clear to auscultation bilaterally. RRR. Triage Information Reviewed: Yes Vital Signs On Initial Exam: Initial Vitals Temp Pulse Resp BP Pulse Ox 97.7 F 80 16 112/84 99 08/30/18 00:08 08/30/18 00:08 08/30/18 00:08 08/30/18 00:08 08/30/18 00:08 Vital Signs Reviewed: Yes Appearance: Positive: Well-Appearing Skin: Positive: Warm Head/Face: Positive: Normal Head/Face Inspection Eyes: Positive: Normal Neck: Positive: Supple Respiratory/Lung Sounds: Positive: Clear to Auscultation Cardiovascular: Positive: Normal Abdomen Description: Positive: Other: Musculoskeletal: Positive: Normal Neurological: Positive: Normal Psychiatric: Positive: Normal AVPU Assessment: Alert - Hernandez Coma Scale Best Eye Response: 4 - Spontaneous Best Motor Response: 6 - Obeys Commands Best Verbal Response: 5 - Oriented Coma Scale Total: 15 Diagnostics - Vital Signs Vital Signs Temp Pulse Resp BP Pulse Ox 08/30/18 00:43 59 08/30/18 00:08 97.7 F 80 16 112/84 99 - Laboratory Lab Results: Lab Results 08/30/18 Range/Units 00:31 WBC 6.3 (3.5-10.8) 10^3/uL RBC 3.89 (3.70-4.87) 10^6 /uL Hgb 10.9 L (12.0-16.0) g/dL Hct 33 L (35-47) % MCV 84 (80-97) fL MCH 28 (27-31) pg MCHC 34 (31-36) g/dL RDW 15 (10-15) % Plt Count 141 L (150-450) 10^3/uL MPV 10.1 (7.4-10.4) fL Neut % (Auto) 43.7 % Lymph % (Auto) 43.5 % [place] % (Auto) 8.7 % Eos % (Auto) 3.2 % Baso % (Auto) 0.9 % Absolute Neuts (auto) 2.8 (1.5-7.7) 10^3/ul Absolute Lymphs (auto) 2.8 (1.0-4.8) 10^3/ul Absolute Monos (auto) 0.6 (0-0.8) 10^3/ul Absolute Eos (auto) 0.2 (0-0.6) 10^3/ul Absolute Basos (auto) 0.1 (0-0.2) 10^3/ul Absolute Nucleated RBC 0.0 10^3/ul Nucleated RBC % 0.1 Result Diagrams: 08/30/18 00:31 08/30/18 00:31 Lab Statement: Any lab studies that have been ordered have been reviewed, and results considered in the medical decision making process. Abdominal Pain Fem Course/Dx - Course Course Of Treatment: Patient complains of fever up to 101.42 days, sudden onset right lower quadrant pain tonight with associated nausea. Pain worse with nothing, better with nothing. 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 Pain currently mild, at worst 7/10 in hour ago. Denies fever, cough, sore throat, CP , SOB, V/D, change in urine, change in BM, vaginal symptoms. Also complains history is provided by 1 week ago for which she took doxycycline. Patient states she quit after 2-1/2 days because it was making her nauseous. Last doxycycline taking 3 days ago. Medical history is none. Abdominal surgical history is none. Patient sexually active with female partner. Physical exam: Pain with palpation of right lower quadrant and right upper quadrant.. Abdominal exam otherwise unremarkable. Lung sounds clear to auscultation bilaterally. RRR. Vital signs within normal limits. Labs unremarkable. Discussed with patient risks versus benefits of CT at this time. Patient was evaluated at 12:30 when ultrasound no longer available. Patient was offered option to be discharged home without CT and return for CT if symptoms progressed. Patient opted for CT at this time. Vital signs within normal limits. Labs unremarkable. Urine unlikely for UTI. Patient signed out to Dr. Conley pending CT abdomen and pelvis. - Diagnoses Provider Diagnoses: UTI (urinary tract infection) Discharge - Sign-Out/Discharge Documenting (check all that apply): Sign-Out Patient Signing out patient TO: Migel Conley Patient Received Moderate/Deep Sedation with Procedure: No - Discharge Plan Condition: Stable Disposition: HOME Prescriptions: Sulfamethox/Trimethoprim DS* [Bactrim DS 800/160 TAB*] 1 tab PO BID #14 tab Patient Education Materials: Urinary Tract Infection in Women (ED) Referrals: Boyd Giordano MD [Primary Care Provider] - Additional Instructions: Please return to the emergency department for any new or worsening symptoms and follow up with your primary care physician in 2-3 days. - Billing Disposition and Condition Condition: STABLE Disposition: Home
[2018-08-30 00:54] LABS: ALT 9 U/L (7-52); AST 23 U/L (13-39); Albumin 4.1 g/dL (3.2-5.2); Albumin/Globulin Ratio 1.7 (1-3); Alkaline Phosphatase 35 U/L (34-104); Anion Gap 5 mmol/L (2-11); BUN/Creatinine Ratio 17.1 (8-20); Blood Urea Nitrogen 12 mg/dL (6-24); C Reactive Protein < 1.00 mg/L (<8.01); CO2 Carbon Dioxide 27 mmol/L (22-32); Calcium 9.3 mg/dL (8.6-10.3); Chloride 107 mmol/L (101-111); EGFR African American 118.9 (>60); EGFR Non-African American 98.3 (>60); Globulin 2.4 g/dL (2-4); Glucose 95 mg/dL (70-100); Potassium 3.8 mmol/L (3.5-5.0); Sodium 139 mmol/L (135-145); Total Protein 6.5 g/dL (6.4-8.9)
[2018-08-30 01:00] LABS: HCG Pregnancy < 0.60 mIU/mL
[2018-08-30 02:22] LABS: Urine Appearance Clear; Urine Bacteria 1+ (Absent); Urine Bilirubin Negative (Negative); Urine Blood Negative (Negative); Urine Color Straw; Urine Glucose Negative (Negative); Urine Ketones Negative (Negative); Urine Nitrite Negative (Negative); Urine Protein Negative (Negative); Urine Red Blood Cell Absent (Absent); Urine Specific Gravity 1.009 (1.010-1.030); Urine Squamous Epithelial Cell Present (Absent); Urine Urobilinogen Negative (Negative); Urine White Blood Cell Trace(0-5/hpf) (Absent)
--- NOTE | 2018-08-30 02:31 | ED ---
Progress - Progress Note Progress Note: Pt is a sign out from [employer] to Dr. Yael MD at shift change on 08/30/[address] A/P. - Results/Orders Results/Orders: CT A/P findings: Negative CT abdomen/pelvis. There is partial visualization of a normal appendix. No renal or ureteral calculi are evident and there is no evidence of obstructive uropathy. ED Physician has reviewed this report. Course/Dx - Course Course Of Treatment: Pt is a sign out to Dr. Conley from [employer] at shift change on 08/30/[address] A/P. The CT A/P results showed a negative CT abdomen/pelvis. There is partial visualization of a normal appendix. No renal or ureteral calculi are evident and there is no evidence of obstructive uropathy. The pt will be discharged home with a Dx of a UTI and instructed to follow up with her PCP in 2-3 days and to return to the ED with any new or worsening symptoms. - Diagnoses Provider Diagnoses: UTI (urinary tract infection) Discharge - Sign-Out/Discharge Documenting (check all that apply): Patient Departure - discharge Patient Received Moderate/Deep Sedation with Procedure: No - Discharge Plan Condition: Stable Disposition: HOME Prescriptions: Sulfamethox/Trimethoprim DS* [Bactrim DS 800/160 TAB*] 1 tab PO BID #14 tab Patient Education Materials: Urinary Tract Infection in Women (ED) Referrals: Boyd Giordano MD [Primary Care Provider] - Additional Instructions: Please return to the emergency department for any new or worsening symptoms and follow up with your primary care physician in 2-3 days. - Attestation Statements Document Initiated by Scribe: Yes Documenting Scribe: Paddy Dela Cruz Provider For Whom Scribe is Documenting (Include Credential): Migel Conley MD Scribe Attestation: Paddy Oliveros, scribed for Migel Conley MD on 08/30/18 at 0435. Status of Scribe Document: Ready
[2018-08-30 04:46] VITALS: BP 101/60
== END | disposition home or self-care (01) ==
LOC: ED 00:07
DX: N39.0 Urinary tract infection, site not specified (principal); R11.0 Nausea; R10.31 Right lower quadrant pain; R10.11 Right upper quadrant pain; Z88.6 Allergy status to analgesic agent; Z88.7 Allergy status to serum and vaccine; Z88.8 Allergy status to other drugs, medicaments and biological substances; Z91.048 Other nonmedicinal substance allergy status; Z87.891 Personal history of nicotine dependence
CPT/HCPCS: 36415; 74177; 80053; 81003; 81015; 83605; 84702; 85025; 86140; 87086; 99283; A9270-GY; Q9967

== ENCOUNTER 2018-12-02 15:55 | Emergency (ER) | payer OTHER ==
--- OUTSIDE RECORDS SUMMARY | 2018-12-02 15:59 | XMS REPORT | Continuity of Care Document ---
:1985 External Reference #:[id number] Author Name Christianne Casey (transmitted by agent of provider Boyd Giordano) Address [address] [place] [address] Care Team Providers Name Role Phone HCP given Care Team Information Senior Librarian Unavailable Jesus Sanon MD - Otolaryngology Care Team Information Senior Librarian [facility] - Pulmonary Care Team Information Senior Librarian [phone] Disease [facility] - Care Team Information Senior Librarian [phone] Cardiology - Cardiovascular Disease Dm Degroot MD - Orthopaedic Care Team Information Senior Librarian Surgery [facility] - Surgery Care Team Information Senior Librarian Problems Active Problems Provider Date Pulmonary Arteriovenous Malformations Boyd Giordano M.D. 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 Social History Type Date Description Comments Sex Unknown Tobacco Use Reviewed: 03/18/14 current cigarette started ~age 19; up smoker to 1ppd as of 03/18/14; as of 2015Mar 20 ppd Tobacco Use Start: Unknown End: Former Cigarette Smoker Quit 01/2018 Unknown Smoking Status Reviewed: 11/26/18 Former Cigarette Smoker Quit 01/2018 ETOH Use 04/06/2015 Abuses Alcohol drank 6-8 pack of 20 oz beer twice a week cut down some since having a child Tobacco Use Start: Unknown End: Patient is a former smoker Recreational Drug Use Former Drug User Recreational Drug Use 03/15/2018 Denies Drug Use Exercise Type/Frequency Exercises sporadically Sun Exposure Uses sunscreen Seat Belt/Car Seat Seat Belt Use - Yes Guns in Home No Smoke Alarms Yes smoke alarm Allergies, Adverse Reactions, Alerts Active Allergies Reaction Severity Comments Date Fabienne can't remember reaction 03/18/2014 Adhesives rash 12/16/2014 Flu Virus Vaccine 04/06/2015 Benadryl 04/06/2015 Inactive Allergies NKDA 01/24/2011 Medications Active Medications SIG Qnty Indications Ordering Provider Date Nicorette Inhalator Use as directed 4units F17.210 Boyd Giordano, 2018 Ken Immunizations CPT Code Status Date Vaccine Lot # U-Flu Given 03/27/2017 Influenza,Unspecified [id number] Given 04/14/2015 Adacel or Boostrix, TDaP [id number] Refused 01/28/2016 Influenza Virus Vaccine, Quadrivalent, Split, Im Use Vital Signs Date Vital Result Comment 11/26/2018 2:52pm BP Systolic 110 mmHg BP Diastolic 60 mmHg Weight 113.50 lb 03/15/2018 10:10am BP Systolic 104 mmHg BP Diastolic 60 mmHg Height 65.75 inches 5'5.75" Weight 110.00 lb BMI (Body Mass Index) 17.9 kg/m2 Results Test Date Facility Test Result H/L Range Note CBC Auto Diff 08/30/2018 [facility] White Blood 6.3 10^3/uL Normal 3.5-10.8 [phone] Count Red Blood Count 3.89 10^6/uL Normal 3.70-4.87 Hemoglobin 10.9 g/dL Low 12.0-16.0 Hematocrit 33 % Low 35-47 Mean Corpuscular Volume 84 fL Normal 80-97 Mean Corpuscular Hemoglobin 28 pg Normal 27-31 Mean Corpuscular HGB Conc 34 g/dL Normal 31-36 Red Cell Distribution Width 15 % Normal 10-15 Platelet Count 141 10^3/uL Low 150-450 Mean Platelet Volume 10.1 fL Normal 7.4-10.4 Abs Neutrophils 2.8 10^3/uL Normal 1.5-7.7 Abs Lymphocytes 2.8 10^3/uL Normal 1.0-4.8 Abs Monocytes 0.6 10^3/uL Normal 0-0.8 Abs Eosinophils 0.2 10^3/uL Normal 0-0.6 Abs Basophils 0.1 10^3/uL Normal 0-0.2 Abs Nucleated RBC 0.0 10^3/uL Granulocyte % 43.7 % Lymphocyte % 43.5 % Monocyte % 8.7 % Eosinophil % 3.2 % Basophil % 0.9 % Nucleated Red Blood Cells % 0.1 Laboratory test 08/30/2018 [facility] Lactic Acid 0.3 mmol/L Low 0.5- 2.0 1 finding [phone] Comp Metabolic 08/30/2018 [facility] Sodium 139 mmol/L Normal 135- 145 Panel [phone] Potassium 3.8 mmol/L Normal 3.5-5.0 Chloride 107 mmol/L Normal 101-111 Co2 Carbon Dioxide 27 mmol/L Normal 22-32 Anion Gap 5 mmol/L Normal 2-11 Glucose 95 mg/dL Normal 70-100 Blood Urea Nitrogen 12 mg/dL Normal 6-24 Creatinine 0.70 mg/dL Normal 0.51-0.95 BUN/Creatinine Ratio 17.1 Normal 8-20 Calcium 9.3 mg/dL Normal 8.6-10.3 Total Protein 6.5 g/dL Normal 6.4-8.9 Albumin 4.1 g/dL Normal 3.2-5.2 Globulin 2.4 g/dL Normal 2-4 Albumin/Globulin Ratio 1.7 Normal 1-3 Total Bilirubin 0.20 mg/dL Normal 0.2-1.0 Alkaline Phosphatase 35 U/L Normal 34-104 Alt 9 U/L Normal 7-52 Ast 23 U/L Normal 13-39 Egfr Non- 98.3 >60 Egfr 118.9 >60 2 Laboratory test 08/30/2018 [facility] C Reactive < 1.00 mg/L Normal < 8.01 finding [phone] Protein HCG < 0.60 mIU/mL 3 Urinalysis Profile 08/30/2018 [facility] Urine Color Straw [phone] Urine Appearance Clear Urine Specific [place] 1.009 Low 1.010-1.030 Urine pH 7.0 Normal 5-9 Urine Urobilinogen Negative Negative Urine Ketones Negative Negative Urine Protein Negative Negative Urine Leukocytes Trace Abnormal Negative Urine Blood Negative Negative Urine Nitrite Negative Negative Urine Bilirubin Negative Negative Urine Glucose Negative Negative Urine White Blood Cell Trace(0-5/hpf) Absent Urine Red Blood Cell Absent Absent Urine Bacteria 1+ Abnormal Absent Urine Squamous Epithelial Cell Present Abnormal Absent Urine Culture And 08/30/2018 [facility] Urine Culture SEE RESULT 4 Sensitivities [phone] BELOW Laboratory test 07/17/2018 [facility] Rapid Strep Negative Negative 5 finding [phone] [facility] Severe Sepsis and Septic Shock Management Bundle Measure requires all lactic acids initially measuring >2.0 mmol/L be repeated. 2 Because ethnic data is not always readily [...] 15-29 5 Kidney failure <15 (or dialysis) 3 <5.0 Negative 5.0 - 25.0 Indeterminate (Repeat testing recommended after 72 hours) >25.0 Positive Perimenopausal women can display HCG levels of up to 20 mIU/mL 4 SEE RESULT BELOW Name: PERRY SAUCEDA : [address]: Migel Conley MD Acct: [id number] Unit: [id number] AGE: 32 Location: ED Re08/30/18 SEX: F Status: REG ER SPEC: [id number] SENDY: 08/30/[address]: Kayden CHOPRA REQ: [id number] RECD: 08/30/18 STATUS: SONY QUINN DR: [facility] Boyd Giordano MD _ SOURCE: URINE SPDESC: ORDERED: Urine Culture Procedure Result Reported Site Urine Culture Final 08/31/18- 1059 ML No Growth (<1,000 CFU/mL) * ML - Main Lab . END OF REPORT DEPARTMENT OF PATHOLOGY, [address] [place] [id number] Aguila Dai M.D. Director [facility] # [id number] 5 Rig Manager: [id number] Procedures Description No Information Available Medical Devices Description No Information Available Encounters Type Date Location Provider Dx Diagnosis Office Visit 11/26/2018 Main Office Shelly Jc, F17.210 Nicotine dependence, 3:20p P.A. cigarettes, uncomplicated F43.23 Adjustment disorder with mixed anxiety and depressed mood Q25.72 Congenital pulmonary arteriovenous malformation Assessments Date Code Description Provider 11/26/2018 F17.210 Nicotine dependence, cigarettes, uncomplicated Shelly Geneva, P.A. 11/26/2018 F43.23 Adjustment disorder with mixed anxiety and Shelly Jc, P.A. depressed mood 11/26/2018 Q25.72 Congenital pulmonary arteriovenous Shelly Jc, P.A. malformation Plan of Treatment 03/15/2018 - Emani Carter, PAZ00.00 Encounter for general adult medical examination without abnoComments:32 year old female. Screening updated, will get baseline labs.F43.23 Adjustment disorder with mixed anxiety and depressed moodComments:Doing well without meds, since going through counseling. Monitor.Q25.72 Congenital pulmonary arteriovenous malformationComments:Refer back to [facility] Pulmonology for f/u on pulmonary AVM.Referral:[facility], Pulmonary Diseases Functional Status Description No Information Available Mental Status Description No Information Available Referrals Description No Information Available
[2018-12-02 16:22] VITALS: BP 110/67
[2018-12-02] MEDS ORDERED: Neomyc/Polym/HC 1% OTIC SUSP* **OTIC RIGHT EAR ONE (16:56)
--- NOTE | 2018-12-02 16:58 | UC ---
Throat Pain/Nasal Mitesh HPI - HPI Summary HPI Summary: 32-year-old woman comes in with a chief complaint of right ear pain and sore throat. No rhinorrhea. Patient started Nicotrol Inhaler several days ago and has had a sore throat or since then. No recent fevers or chills no respiratory distress. Patient wonders if the Nicotrol Inhaler is contributing to the throat pain - History of Current Complaint Chief Complaint: UCEar Stated Complaint: SORE THROAT, AND EAR ACHE Time Seen by Provider: 12/02/18 16:35 Hx Last Menstrual Period: nov 08, 2018 Pain Intensity: 4 - Allergies/Home Medications Allergies/Adverse Reactions: Allergies Allergy/AdvReac Type Severity Reaction Status Date / Time acetaminophen Allergy Severe Airway Verified 12/02/18 16:22 [From Coricidin] Obstruction chlorpheniramine Allergy Severe Airway Verified 12/02/18 16:22 [From Coricidin] Obstruction Influenza Virus Vaccines Allergy Severe Airway Verified 12/02/18 16:22 Obstruction phenylpropanolamine Allergy Severe Airway Verified 12/02/18 16:22 [From Coricidin] Obstruction Adhesive Tape Allergy Mild Rash And Verified 12/02/18 16:22 Itching diphenhydramine Allergy Unknown Verified 12/02/18 16:22 [From Benadryl] Reaction Details Home Medications: Home Medications Multivit/Iron/Folic Acid/Hb179 [Womens Multivit Hi Potency Tab] 1 each PO DAILY WITH MEAL 12/02/18 [History Confirmed 12/02/18] Nicotine Inhaler* (NF) [Nicotine Inhaler*] 10 mg INH Q2H PRN 12/02/18 [History Confirmed 12/02/18] PMH/Surg Hx/FS Hx/Imm Hx Previously Healthy: Yes - Surgical History Surgical History: Yes Surgery Procedure, Year, and Place: EAR TUBES A CHILD - Family History Known Family History: Positive: Hypertension, Diabetes, Respiratory Disease - COPD, Other - [place] - Social History Alcohol Use: None Alcohol Amount: Sober for approximately 3 years Substance Use Type: None Smoking Status (MU): Light Every Day Tobacco Smoker Type: eCigarettes Amount Used/How Often: 3mg Length of Time of Smoking/Using Tobacco: 7 YEARS Have You Smoked in the Last Year: Yes When Did the Patient Quit Smoking/Using Tobacco: vape Household Exposure Type: Cigarettes - Immunization History Most Recent Influenza Vaccination: this season Most Recent Pneumonia Vaccination: none Review of Systems All Other Systems Reviewed And Are Negative: Yes Constitutional: Positive: Negative Skin: Positive: Negative Eyes: Positive: Negative ENT: Positive: Sore Throat, Ear Ache Respiratory: Positive: Negative Cardiovascular: Positive: Negative Gastrointestinal: Positive: Negative Motor: Positive: Negative Neurovascular: Positive: Negative Musculoskeletal: Positive: Negative Neurological: Positive: Negative Psychological: Positive: Negative Is Patient Immunocompromised?: No Physical Exam Triage Information Reviewed: Yes Appearance: Well-Appearing, No Pain Distress, Well-Nourished Vital Signs: Initial Vital Signs Temp 98.6 F 12/02/18 16:18 Pulse 69 12/02/18 16:18 Resp 18 12/02/18 16:18 BP 110/67 12/02/18 16:18 Pulse Ox 100 12/02/18 16:18 Vital Signs Reviewed: Yes Eye Exam: Normal Eyes: Positive: Conjunctiva Clear ENT: Positive: Pharynx normal, Other - Both TMs have some scar tissue. The right tragus is tender to palpation. There is some debris in the right ear canal. No erythema in either TM. Neck: Positive: Supple Respiratory: Positive: Lungs clear, Normal breath sounds, No respiratory distress Cardiovascular: Positive: RRR Musculoskeletal: Positive: Strength Intact, ROM Intact Neurological: Positive: Alert, Muscle Tone Normal Psychological: Positive: Normal Response To Family, Age Appropriate Behavior Skin Exam: Normal Throat Pain/Nasal Course/Dx - Course Course Of Treatment: Strep was negative. Treating for right otitis externa. Continue symptomatic treatment. Reevaluate if not improved or worse. - Differential Dx/Diagnosis Provider Diagnosis: Right otitis externa, Pharyngitis Discharge ED - Sign-Out/Discharge Documenting (check all that apply): Patient Departure All imaging exams completed and their final reports reviewed: No Studies - Discharge Plan Condition: Stable Disposition: HOME Patient Education Materials: Pharyngitis (ED), Otitis Externa (ED) Referrals: Boyd Giordano MD [Primary Care Provider] - Additional Instructions: FOLLOW UP WITH YOUR DOCTOR IF NOT COMPLETELY IMPROVED. GET RECHECKED SOONER IF YOUR CONDITION WORSENS OR ANY QUESTIONS OR CONCERNS. - Billing Disposition and Condition Condition: STABLE Disposition: Home
== END 2018-12-02 17:10 | disposition home or self-care (01) ==
LOC: UCEAST 15:55
DX: H60.91 Unspecified otitis externa, right ear (principal); J02.9 Acute pharyngitis, unspecified; F17.210 Nicotine dependence, cigarettes, uncomplicated
CPT/HCPCS: 87651; 99212; A9270-GY; G0463

== ENCOUNTER 2019-02-21 10:46 | Emergency (ER) | payer OTHER ==
[2019-02-21 11:09] VITALS: BP 115/53
--- NOTE | 2019-02-21 11:56 | ED ---
Throat Pain/Nasal Congestion - HPI Summary HPI Summary: 33 yrold with a week of frontal sinus pressure, post nasal drip, coughing. The patient has been coughing a lot, and has left sided neck pain that radiates down into the left shoulder and arm. It hurts worse to turn the head to the left. No focal weakness or numbness to the left arm. - History of Current Complaint Chief Complaint: UCBackPain Time Seen by Provider: 02/21/19 11:43 - Allergies/Home Medications Allergies/Adverse Reactions: Allergies Allergy/AdvReac Type Severity Reaction Status Date / Time acetaminophen Allergy Severe Airway Verified 02/21/19 11:02 [From Coricidin] Obstruction chlorpheniramine Allergy Severe Airway Verified 02/21/19 11:02 [From Coricidin] Obstruction Influenza Virus Vaccines Allergy Severe Airway Verified 02/21/19 11:02 Obstruction phenylpropanolamine Allergy Severe Airway Verified 02/21/19 11:02 [From Coricidin] Obstruction Adhesive Tape Allergy Mild Rash And Verified 02/21/19 11:02 Itching diphenhydramine Allergy Unknown Verified 02/21/19 11:02 [From Benadryl] Reaction Details Home Medications: Home Medications Ibuprofen TAB* [Advil TAB*] 600 mg PO Q6H PRN 02/21/19 [History Confirmed ] PMH/Surg Hx/FS Hx/Imm Hx Endocrine/Hematology History: Denies: Hx Diabetes, Hx Thyroid Disease Cardiovascular History: Reports: Other Cardiovascular Problems/Disorders - heart murmur Denies: Hx Hypertension, Hx Pacemaker/ICD Respiratory History: Reports: Hx Asthma Denies: Hx Chronic Obstructive Pulmonary Disease (COPD) GI History: Denies: Hx Ulcer History: Denies: Hx Dialysis, Hx Renal Disease Sensory History: Reports: Hx Contacts or Glasses Denies: Hx Hearing Aid Opthamlomology History: Reports: Hx Contacts or Glasses Neurological History: Denies: Hx Developmental Delay Psychiatric History: Reports: Hx Anxiety, Hx Attention Deficit Hyperactivity Disorder, Hx Panic Disorder, Hx Community Mental Health Tx, Hx Substance Abuse - Surgical History Surgery Procedure, Year, and Place: EAR TUBES A CHILD - Immunization History Date of Tetanus Vaccine: utd Date of Influenza Vaccine: no Infectious Disease History: No Infectious Disease History: Denies: Hx Clostridium Difficile, Hx Hepatitis, Hx Human Immunodeficiency Virus (HIV), Hx of Known/Suspected MRSA, Hx Shingles, Hx Tuberculosis, Hx Known/ Suspected VRE, Hx Known/Suspected VRSA, History Other Infectious Disease, Traveled Outside the [place] in Last 30 Days - Family History Known Family History: Positive: Hypertension, Diabetes, Respiratory Disease - COPD, Other - [place] - Social History Alcohol Use: None Alcohol Amount: Sober for approximately 3 years Hx Substance Use: No Substance Use Type: Reports: None Hx Tobacco Use: Yes Smoking Status (MU): Light Every Day Tobacco Smoker Type: Cigarettes Amount Used/How Often: less than 10 Length of Time of Smoking/Using Tobacco: 7 YEARS Have You Smoked in the Last Year: Yes Review of Systems Constitutional: Negative Negative: Photophobia Positive: Other - frontal sinus pain, left side neck pain, spasms. Neurological: Negative All Other Systems Reviewed And Are Negative: Yes Physical Exam Triage Information Reviewed: Yes Vital Signs On Initial Exam: Initial Vitals Temp Pulse Resp BP Pulse Ox 98.8 F 76 15 115/53 100 02/21/19 11:03 02/21/19 11:03 02/21/19 11:03 02/21/19 11:03 02/21/19 11:03 Vital Signs Reviewed: Yes Appearance: Positive: Well-Appearing, No Pain Distress Skin: Positive: Warm, Skin Color Reflects Adequate Perfusion Head/Face: Positive: Normal Head/Face Inspection Eyes: Positive: EOMI ENT: Positive: Normal ENT inspection, TMs normal, Sinus tenderness - bilateral frontal Neck: Positive: Supple, Nontender, No Lymphadenopathy, Other: - she has some spasm to the left trapezius muscle medially and limited ROM to the left. Respiratory/Lung Sounds: Positive: Clear to Auscultation, Breath Sounds Present Cardiovascular: Positive: RRR. Negative: Murmur Abdomen Description: Negative: Distended Musculoskeletal: Positive: Strength/ROM Intact Neurological: Positive: Sensory/Motor Intact, Alert, Oriented to Person Place, Time, CN Intact II-III, Normal Gait, Speech Normal Psychiatric: Positive: Normal Diagnostics - Vital Signs Vital Signs Temp Pulse Resp BP Pulse Ox 02/21/19 11:03 98.8 F 76 15 115/53 100 - Laboratory Lab Statement: Any lab studies that have been ordered have been reviewed, and results considered in the medical decision making process. EENT Course/Dx - Course Course Of Treatment: 33 yr old with sinusitis. Rx Augmentin. Flexeril for the torticollis. FU with PMD> - Diagnoses Provider Diagnoses: Sinusitis, Torticollis Discharge ED - Sign-Out/Discharge Documenting (check all that apply): Patient Departure All imaging exams completed and their final reports reviewed: No Studies - Discharge Plan Condition: Good Disposition: HOME Prescriptions: Amoxicillin/Clavulanate TAB* [Augmentin TAB 875*] 875 mg PO BID #20 tab Cyclobenzaprine TAB* [Flexeril 10 MG TAB*] 10 mg PO BID PRN #14 tab PRN Reason: Pain - Moderate Patient Education Materials: Sinusitis (ED), Spasmodic Torticollis (ED) Referrals: Boyd Giordano MD [Primary Care Provider] - - Billing Disposition and Condition Condition: GOOD Disposition: Home
== END 2019-02-21 12:02 | disposition home or self-care (01) ==
LOC: UCCORT 10:46
DX: J32.9 Chronic sinusitis, unspecified (principal); M43.6 Torticollis; F17.210 Nicotine dependence, cigarettes, uncomplicated; Z88.6 Allergy status to analgesic agent; Z88.8 Allergy status to other drugs, medicaments and biological substances; Z88.7 Allergy status to serum and vaccine; Z91.09 Other allergy status, other than to drugs and biological substances
CPT/HCPCS: 99212; G0463

== ENCOUNTER 2019-03-07 10:48 | Emergency (ER) | payer OTHER ==
[2019-03-07 10:58] VITALS: BP 109/62
[2019-03-07] MEDS ORDERED: Tetracaine 0.5% OPTH.SOL 4 ML* 1 DROP BTL LEFT EYE ONE (11:18)
[2019-03-07] MEDS ORDERED: Fluorescein Sodium TOPICAL* 1 MG TEST STRIP OPHTHALMIC ONE (11:21)
--- NOTE | 2019-03-07 11:24 | UC ---
UC General HPI - HPI Summary HPI Summary: 33-year-old woman comes in with a chief complaint of left-sided facial pain and swelling. Little more than a week ago patient was having pain in the left side of her face down into her left neck and left upper back. Pain is worse with twisting turning bending. Also having left upper dental pain. Also has one area of a rash on the left side of her nose. Also has pain to the left ear. Minimal rhinorrhea. She did try Orajel which helped about 10 minutes with a dental pain is. - History of Current Complaint Chief Complaint: UCUpperExtremity Stated Complaint: SIDE OF FACE SWOLLEN Time Seen by Provider: 03/07/19 11:04 Hx Last Menstrual Period: 01/30/19 Pain Intensity: 7 - Allergy/Home Medications Allergies/Adverse Reactions: Allergies Allergy/AdvReac Type Severity Reaction Status Date / Time acetaminophen Allergy Severe Airway Verified 03/07/19 10:58 [From Coricidin] Obstruction chlorpheniramine Allergy Severe Airway Verified 03/07/19 10:58 [From Coricidin] Obstruction Influenza Virus Vaccines Allergy Severe Airway Verified 03/07/19 10:58 Obstruction phenylpropanolamine Allergy Severe Airway Verified 03/07/19 10:58 [From Coricidin] Obstruction Adhesive Tape Allergy Mild Rash And Verified 03/07/19 10:58 Itching diphenhydramine Allergy Unknown Verified 03/07/19 10:58 [From Benadryl] Reaction Details PMH/Surg Hx/FS Hx/Imm Hx Previously Healthy: Yes - Surgical History Surgical History: Yes Surgery Procedure, Year, and Place: EAR TUBES A CHILD - Family History Known Family History: Positive: Hypertension, Diabetes, Respiratory Disease - COPD, Other - [place] - Social History Alcohol Use: None Alcohol Amount: Sober for approximately 3 years Substance Use Type: None Smoking Status (MU): Light Every Day Tobacco Smoker Type: Cigarettes Amount Used/How Often: less than 10 Length of Time of Smoking/Using Tobacco: 7 YEARS Have You Smoked in the Last Year: Yes When Did the Patient Quit Smoking/Using Tobacco: vape Household Exposure Type: Cigarettes - Immunization History Most Recent Influenza Vaccination: this season Most Recent Pneumonia Vaccination: none Review of Systems All Other Systems Reviewed And Are Negative: Yes Constitutional: Positive: Other - SEE HPI Skin: Positive: Rash - SEE HPI ENT: Positive: Dental Pain, Other - SEE HPI Respiratory: Positive: Negative Cardiovascular: Positive: Negative Gastrointestinal: Positive: Negative Motor: Positive: Negative Neurovascular: Positive: Negative Musculoskeletal: Positive: Other: - SEE HPI Neurological: Positive: Negative Psychological: Positive: Negative Is Patient Immunocompromised?: No Physical Exam Triage Information Reviewed: Yes Appearance: Well-Appearing, Well-Nourished, Pain Distress - MILD Vital Signs: Initial Vital Signs Temp 98.4 F 03/07/19 10:53 Pulse 69 03/07/19 10:53 Resp 18 03/07/19 10:53 BP 109/62 03/07/19 10:53 Pulse Ox 100 03/07/19 10:53 Vital Signs Reviewed: Yes Eyes: Positive: Conjunctiva Clear, Other: - PERRLA EOMI. No uptake on fluorescein stain exam.. Negative: Conjunctiva Inflamed, Discharge ENT: Positive: Pharynx normal, TMs normal - No debris in the left ear canal. Left tragus is nontender to palpation., Other - There is a single raised 6 mm circular area of erythematous rash on the leftnose. No other rash appreciated. There is left-sided cheek swelling anterior to the left parotid gland. Dental: Positive: Other: - The left upper molars do have fillings in some of the cavities a do not perceive any gingival swelling. Neck: Positive: Supple Respiratory: Positive: Lungs clear, Normal breath sounds, No respiratory distress Cardiovascular: Positive: RRR Musculoskeletal: Positive: Strength Intact, ROM Intact Neurological: Positive: Alert, Muscle Tone Normal Psychological: Positive: Age Appropriate Behavior Skin: Positive: Other - There is a single raised 6 mm circular area of erythematous rash on the leftnose. No other rash appreciated. Course/Dx - Course Course Of Treatment: Patient has visible left cheek swelling and tenderness. This may be due to a dental abscess and therefore we'll treat with Augmentin. She also has one area of rash on the left side of her nose. Her pain is on the left side of her face and does go down to the left neck which may indicate shingles. Therefore we'll treat with valacyclovir., Eye examination I did not see any fluorescein uptake. Patient has an ophthalmology appointment on March 14, 2019. As long as she has no problems with the left eye with pain or blurred vision she' ll keep that appointment otherwise if she does have any problems I asked her to be seen by her eye doctor right away. Patient to get reevaluated if not improving or worse. - Diagnoses Provider Diagnosis: Swelling of left side of face, Left-sided face pain Discharge ED - Sign-Out/Discharge Documenting (check all that apply): Patient Departure All imaging exams completed and their final reports reviewed: No Studies - Discharge Plan Condition: Stable Disposition: HOME Prescriptions: Amoxicillin/Clavulanate TAB* [Augmentin TAB 875*] 875 mg PO BID #20 tab Valacyclovir HCl [Valtrex] 1,000 mg PO TID #21 tablet Patient Education Materials: Dental Abscess (ED), Shingles (ED) Referrals: Boyd Giordano MD [Primary Care Provider] - Additional Instructions: FOLLOW UP WITH YOUR DOCTOR. Follow-up with your licensing manager as scheduled on March 14, 2019. If you have any problems with her left I before March 14, 2019 with pain on the surface of the eye or blurred vision see her licensing manager right away. Your left-sided facial swelling and pain with rash may be due to a dental abscess or shingles. We are treating for both conditions at this time. GET REEVALUATED SOONER IF NOT IMPROVED OR WORSE OR ANY QUESTIONS OR CONCERNS. - Billing Disposition and Condition Condition: STABLE Disposition: Home
== END 2019-03-07 11:48 | disposition home or self-care (01) ==
LOC: UCEAST 10:48
DX: R51 Headache (principal); F17.210 Nicotine dependence, cigarettes, uncomplicated; R60.9 Edema, unspecified; K08.89 Other specified disorders of teeth and supporting structures; R21 Rash and other nonspecific skin eruption; Z88.6 Allergy status to analgesic agent; Z88.7 Allergy status to serum and vaccine; Z88.8 Allergy status to other drugs, medicaments and biological substances; Z91.09 Other allergy status, other than to drugs and biological substances
CPT/HCPCS: 99212; A9270-GY; G0463

== ENCOUNTER 2019-04-02 21:01 | Emergency (ER) | payer OTHER ==
--- OUTSIDE RECORDS SUMMARY | 2019-04-02 21:13 | XMS REPORT | Continuity of Care Document ---
:1985 External Reference #:[id number] Author Name Kena Lauren MD Address [address] [facility] [place] [address] Care Team Providers Name Role Phone HCP given Care Team Information Transport Tech Unavailable Jesus Sanon MD - Otolaryngology Care Team Information Transport Tech [facility] - Pulmonary Care Team Information Transport Tech [phone] Disease [facility] - Care Team Information Transport Tech [phone] Cardiology - Cardiovascular Disease Dm Degroot MD - Orthopaedic Care Team Information Transport Tech [phone] Surgery [facility] - Surgery Care Team Information Transport Tech [phone] Problems Active Problems Provider Date Pulmonary Arteriovenous [...] Smoker Quit 01/2018 Unknown Smoking Status Reviewed: 03/30/19 Former Cigarette Smoker Quit 01/2018 ETOH Use 04/06/2015 Abuses Alcohol drank 6-8 pack of 20 oz beer twice a week cut down some since having a child Recreational Drug Use Former Drug User Tobacco Use Start: Unknown Patient is a current smoker, smokes every day Recreational Drug Use 03/15/2018 Denies Drug Use Exercise Type/Frequency Exercises sporadically Sun Exposure Uses sunscreen Seat Belt/Car Seat Seat Belt Use - Yes Guns in Home No Smoke Alarms Yes smoke alarm Allergies, Adverse Reactions, Alerts Active Allergies Reaction Severity Comments Date Coricidin can't remember reaction 03/18/2014 Adhesives rash 12/16/2014 Flu Virus Vaccine 04/06/2015 Benadryl 04/06/2015 Inactive Allergies NKDA 01/24/2011 Medications Active Medications SIG Qnty Indications Ordering Provider Date Ferrous Gluconate 1 by mouth 30tabs D64.9 Kena Lauren, 03/29/2019 every day 324(38Fe) mg Tablets History Medications Nicotrol One inhaler q 2 168units F17.210 Boyd Giordano, 11/27/2018 - 10mg hrs, not to M.D. 03/28/2019 Inhaler exceed 6 per day Nicorette Use as directed 4units F17.210 Boyd Giordano, 11/26/2018 - Inhalator M.D. 11/27/2018 Immunizations CPT Code Status Date Vaccine Lot # [id number] Given 03/27/2017 Influenza,Unspecified [id number] Given 04/14/2015 Adacel or Boostrix, TDaP [id number] Refused 01/28/2016 Influenza Virus Vaccine, Quadrivalent, Split, Im Use Vital Signs Date Vital Result Comment 03/29/2019 10:30am BP Systolic 112 mmHg BP Diastolic 68 mmHg Height 65.5 inches 5'5.50" Weight 109.00 lb BMI (Body Mass Index) 17.9 kg/m2 11/26/2018 2:52pm BP Systolic 110 mmHg BP Diastolic 60 mmHg Weight 113.50 lb Results Test Acquired Date Facility Test Result H/L Range Note CBC Auto 03/29/2019 [facility] White Blood 8.1 10^3/uL Normal 3.5- 10.8 Diff [phone] Count Red Blood Count 3.78 10^6/uL Normal 3.70-4.87 Hemoglobin 11.1 g/dL Low 12.0-16.0 Hematocrit 32 % Low 35-47 Mean Corpuscular Volume 86 fL Normal 80-97 Mean Corpuscular Hemoglobin 29 pg Normal 27-31 Mean Corpuscular HGB Conc 34 g/dL Normal 31-36 Red Cell Distribution Width 15 % Normal 10-15 Platelet Count 175 10^3/uL Normal 150-450 Mean Platelet Volume 10.6 fL High 7.4-10.4 Abs Neutrophils 5.5 10^3/uL Normal 1.5-7.7 Abs Lymphocytes 1.8 10^3/uL Normal 1.0-4.8 Abs Monocytes 0.6 10^3/uL Normal 0-0.8 Abs Eosinophils 0.1 10^3/uL Normal 0-0.6 Abs Basophils 0.1 10^3/uL Normal 0-0.2 Abs Nucleated RBC 0.0 10^3/uL Granulocyte % 68.1 % Lymphocyte % 22.4 % Monocyte % 7.5 % Eosinophil % 1.3 % Basophil % 0.7 % Nucleated Red Blood Cells % 0.0 Laboratory test finding 03/29/2019 [facility] Ferritin 5.8 ng/mL Low 11-307 [phone] Iron & Iron Binding 03/29/2019 [facility] Iron 32 g/dL Low 50-212 Capacity [phone] Unsaturated Iron Binding < 492 g/dL Total Iron Binding Capacity 507 g/dL High 250-450 Transferrin 362 mg/dL Normal 203-362 % Iron Saturation 6 % Low 15-55 Laboratory test 12/02/2018 [facility] Rapid Strep Negative Negative 1 finding [phone] Molecular 1 Weight Loss Consultant: [id number] Procedures Description No Information Available Medical Devices Description No Information Available Encounters Type Date Location Provider Dx Diagnosis Office Visit 03/29/2019 Main Office Kena Lauren MD D64.9 Anemia, unspecified 10:30a G25.81 Restless legs syndrome N92.0 Excessive and frequent menstruation with regular cycle Z68.1 Body mass index (BMI) 19.9 or less, adult Office Visit 11/26/2018 3:20p Main Office Shelly Jc, F17.210 Nicotine dependence, P.A. 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 11/26/2018 F43.23 Adjustment disorder with mixed anxiety and Shelly [place], P.A. depressed mood 11/26/2018 Q25.72 Congenital pulmonary arteriovenous Shelly [place], P.A. malformation Plan of Treatment Future Appointment(s):06/28/2019 9:30 am - Kena Lauren MD at [id number] - Emani Carter, PAZ00.00 Encounter for general adult medical examination without abnoComments:32 year old female. Screening updated, will get baseline labs.F43.23 Adjustment disorder with mixed anxiety and depressed moodComments:Doing well without meds, since going through counseling. Monitor.Q25.72 Congenital pulmonary arteriovenous malformationComments:Refer back to [facility] Pulmonology for f/u on pulmonary AVM.Referral:[facility], Pulmonary Diseases Functional Status Description No Information Available Mental Status Description No Information Available Referrals Description No Information Available
[2019-04-03 01:00] LABS: ABS Basophils 0.1 10^3/ul (0-0.2); ABS Eosinophils 0.2 10^3/ul (0-0.6); ABS Lymphocytes 2.5 10^3/ul (1.0-4.8); ABS Monocytes 0.7 10^3/ul (0-0.8); ABS Neutrophils 2.2 10^3/ul (1.5-7.7); Eosinophil % 3.4 %; Hematocrit 35 % (35-47); Hemoglobin 11.5 g/dL (12.0-16.0); Mean Corpuscular HGB Conc 33 g/dL (31-36); Mean Corpuscular Hemoglobin 29 pg (27-31); Mean Corpuscular Volume 86 fL (80-97); Nucleated Red Blood Cells % 0.1; Platelet Count 164 10^3/uL (150-450); Red Blood Count 4.03 10^6 /uL (3.70-4.87); Red Cell Distribution Width 15 % (10-15); White Blood Count 5.6 10^3/uL (3.5-10.8)
[2019-04-03] MEDS ORDERED: NS 0.9% 1000 ML** 1,000 ML IV ONE (01:07)
[2019-04-03 01:21] LABS: ALT 14 U/L (7-52); AST 25 U/L (13-39); Albumin 4.3 g/dL (3.2-5.2); Albumin/Globulin Ratio 1.5 (1-3); Alkaline Phosphatase 42 U/L (34-104); Anion Gap 7 mmol/L (2-11); BUN/Creatinine Ratio 21.6 (8-20); Blood Urea Nitrogen 16 mg/dL (6-24); C Reactive Protein < 1.00 mg/L (<8.01); CO2 Carbon Dioxide 25 mmol/L (22-32); Calcium 9.2 mg/dL (8.6-10.3); Chloride 103 mmol/L (101-111); EGFR African American 110.8 (>60); EGFR Non-African American 91.5 (>60); Globulin 2.8 g/dL (2-4); Glucose 94 mg/dL (70-100); Potassium 4.2 mmol/L (3.5-5.0); Sodium 135 mmol/L (135-145); Total Protein 7.1 g/dL (6.4-8.9)
[2019-04-03 01:22] LABS: Alcohol < 10 mg/dL (<10)
[2019-04-03 01:24] LABS: HCG Pregnancy < 0.60 mIU/mL
[2019-04-03 01:37] LABS: TSH (Thyroid Stimulating Horm) 1.29 mcIU/mL (0.34-5.60)
[2019-04-03 01:43] LABS: Urine Appearance Clear; Urine Bilirubin Negative (Negative); Urine Blood Negative (Negative); Urine Color Yellow; Urine Glucose Negative (Negative); Urine Ketones Negative (Negative); Urine Nitrite Negative (Negative); Urine Protein Negative (Negative); Urine Specific Gravity 1.021 (1.010-1.030); Urine Urobilinogen Negative (Negative)
[2019-04-03 01:58] LABS: Urine Benzodiazepine Screen None Detected (None Detect); Urine Opiates Screen None Detected (None Detect)
--- NOTE | 2019-04-03 02:08 | ED ---
Complex/Multi-Sys Presentation - HPI Summary HPI Summary: 33-year-old male presents with the fatigue that has been going on for a while. She also admits occasional shortness breath. She has a history of menorrhagia. She has an appointment tomorrow to start control. She states that she' s been having heavy bleeding with clots. States this is the last day of her period. She states she started iron because she has iron deficiency anemia due to the heavy bleeding. She admits to lower abdominal pain which is normal for her period. Denies any urinary symptoms. No chest pain. No headache. She states she gets dizzy when she stands up occasionally. no cough. no fever. - History Of Current Complaint Chief Complaint: EDGeneral Time Seen by Provider: 04/03/19 00:58 - Allergies/Home Medications Allergies/Adverse Reactions: Allergies Allergy/AdvReac Type Severity Reaction Status Date / Time acetaminophen Allergy Severe Airway Verified 04/02/19 21:05 [From Coricidin] Obstruction chlorpheniramine Allergy Severe Airway Verified 04/02/19 21:05 [From Coricidin] Obstruction Influenza Virus Vaccines Allergy Severe Airway Verified 04/02/19 21:05 Obstruction phenylpropanolamine Allergy Severe Airway Verified 04/02/19 21:05 [From Coricidin] Obstruction Adhesive Tape Allergy Mild Rash And Verified 04/02/19 21:05 Itching diphenhydramine Allergy Unknown Verified 04/02/19 21:05 [From Benadryl] Reaction Details Home Medications: Home Medications Ferrous Gluconate TAB* [Fergon TAB*] 1 tab PO DAILY 04/03/19 [History Confirmed 04/03/19] PMH/Surg Hx/FS Hx/Imm Hx Endocrine/Hematology History: Denies: Hx Diabetes, Hx Thyroid Disease Cardiovascular History: Reports: Other Cardiovascular Problems/Disorders - heart murmur Denies: Hx Hypertension, Hx Pacemaker/ICD Respiratory History: Reports: Hx Asthma Denies: Hx Chronic Obstructive Pulmonary Disease (COPD) GI History: Denies: Hx Ulcer History: Denies: Hx Dialysis, Hx Renal Disease Sensory History: Reports: Hx Contacts or Glasses Denies: Hx Hearing Aid Opthamlomology History: Reports: Hx Contacts or Glasses Neurological History: Denies: Hx Developmental Delay Psychiatric History: Reports: Hx Anxiety, Hx Attention Deficit Hyperactivity Disorder, Hx Panic Disorder, Hx Community Mental Health Tx, Hx Substance Abuse - Surgical History Surgery Procedure, Year, and Place: EAR TUBES A CHILD - Immunization History Date of Tetanus Vaccine: utd Date of Influenza Vaccine: no Infectious Disease History: No Infectious Disease History: Denies: Hx Clostridium Difficile, Hx Hepatitis, Hx Human Immunodeficiency Virus (HIV), Hx of Known/Suspected MRSA, Hx Shingles, Hx Tuberculosis, Hx Known/ Suspected VRE, Hx Known/Suspected VRSA, History Other Infectious Disease, Traveled Outside the [place] in Last 30 Days - Family History Known Family History: Positive: Hypertension, Diabetes, Respiratory Disease - COPD, Other - CA - Social History Alcohol Use: None Alcohol Amount: Sober for approximately 3 years Hx Substance Use: No Substance Use Type: Reports: None Hx Tobacco Use: Yes Smoking Status (MU): Light Every Day Tobacco Smoker Type: Cigarettes Amount Used/How Often: less than 10 Length of Time of Smoking/Using Tobacco: 7 YEARS Have You Smoked in the Last Year: Yes Review of Systems Positive: Fatigue Negative: Chest Pain Positive: Shortness Of Breath. Negative: Cough All Other Systems Reviewed And Are Negative: Yes Physical Exam Triage Information Reviewed: Yes Vital Signs On Initial Exam: Initial Vitals Temp Pulse Resp BP Pulse Ox 98.4 F 85 16 121/79 100 04/02/19 21:02 04/02/19 21:02 04/02/19 21:02 04/02/19 21:02 04/02/19 21:02 Vital Signs Reviewed: Yes Appearance: Positive: Well-Appearing Skin: Positive: Warm, Dry Head/Face: Positive: Normal Head/Face Inspection Eyes: Positive: Normal, EOMI, LUPE, Conjunctiva Clear ENT: Positive: Normal ENT inspection, Pharynx normal, TMs normal Respiratory/Lung Sounds: Positive: Clear to Auscultation, Breath Sounds Present Cardiovascular: Positive: Normal, RRR Abdomen Description: Positive: Soft, Other: - tenderness pelvic Bowel Sounds: Positive: Present Musculoskeletal: Positive: Normal Neurological: Positive: Normal Psychiatric: Positive: Normal Procedures - Sedation Patient Received Moderate/Deep Sedation with Procedure: No Diagnostics - Vital Signs Vital Signs Temp Pulse Resp BP Pulse Ox 04/03/19 01:46 66 89/49 98 04/03/19 01:35 60 105/59 98 04/03/19 01:00 64 99 04/03/19 00:48 61 100 01/15/20 00:46 58 115/65 98 01/14/20 23:24 98.1 F 63 16 115/73 99 04/02/19 21:02 98.4 F 85 16 121/79 100 - Laboratory Lab Results: Lab Results 04/03/19 04/03/19 04/03/19 Range/Units 00:53 00:53 00:53 WBC 5.6 (3.5-10.8) 10^3/uL RBC 4.03 (3.70-4.87) 10^6 /uL Hgb 11.5 L (12.0-16.0) g/dL Hct 35 (35-47) % MCV 86 (80-97) fL MCH 29 (27-31) pg MCHC 33 (31-36) g/dL RDW 15 (10-15) % Plt Count 164 (150-450) 10^3/uL MPV 10.0 (7.4-10.4) fL Neut % (Auto) 38.5 % Lymph % (Auto) 45.0 % Kings % (Auto) 11.8 % Eos % (Auto) 3.4 % Baso % (Auto) 1.3 % Absolute Neuts (auto) 2.2 (1.5-7.7) 10^3/ul Absolute Lymphs (auto) 2.5 (1.0-4.8) 10^3/ul Absolute Monos (auto) 0.7 (0-0.8) 10^3/ul Absolute Eos (auto) 0.2 (0-0.6) 10^3/ul Absolute Basos (auto) 0.1 (0-0.2) 10^3/ul Absolute Nucleated RBC 0.0 10^3/ul Nucleated RBC % 0.1 INR (Anticoag Therapy) (0.82-1.09) Sodium 135 (135-145) mmol/L Potassium 4.2 (3.5-5.0) mmol/L Chloride 103 (101-111) mmol/L Carbon Dioxide 25 (22-32) mmol/L Anion Gap 7 (2-11) mmol/L BUN 16 (6-24) mg/dL Creatinine 0.74 (0.51-0.95) mg/dL Est GFR ( Amer) 110.8 (>60) Est GFR (Non-Af Amer) 91.5 (>60) BUN/Creatinine Ratio 21.6 H (8-20) Glucose 94 (70-100) mg/dL Lactic Acid 0.7 (0.5-2.0) mmol/L Calcium 9.2 (8.6-10.3) mg/dL Magnesium 2.0 (1.9-2.7) mg/dL Total Bilirubin 0.30 (0.2-1.0) mg/dL AST 25 (13-39) U/L ALT 14 (7-52) U/L Alkaline Phosphatase 42 (34-104) U/L C-Reactive Protein < 1.00 (<8.01) mg/L Total Protein 7.1 (6.4-8.9) g/dL Albumin 4.3 (3.2-5.2) g/dL Globulin 2.8 (2-4) g/dL Albumin/Globulin Ratio 1.5 (1-3) TSH 1.29 (0.34-5.60) mcIU/mL Beta HCG, Quant < 0.60 mIU/mL Urine Color Urine Appearance Urine pH (5-9) Ur Specific [place] (1.010-1.030) Urine Protein (Negative) Urine Ketones (Negative) Urine Blood (Negative) Urine Nitrate (Negative) Urine Bilirubin (Negative) Urine Urobilinogen (Negative) Ur Leukocyte Esterase (Negative) Urine Glucose (Negative) Urine Opiates Screen (None Detect) Ur Barbiturates Screen (None Detect) Ur Phencyclidine Scrn (None Detect) Ur Amphetamines Screen (None Detect) U Benzodiazepines Scrn (None Detect) Urine Cocaine Screen (None Detect) U Cannabinoids Screen (None Detect) Serum Alcohol < 10 (<10) mg/dL 04/03/19 04/03/19 04/03/19 Range/Units 00:53 01:31 01:31 WBC (3.5-10.8) 10^3/uL RBC (3.70-4.87) 10^6 /uL Hgb (12.0-16.0) g/dL Hct (35-47) % MCV (80-97) fL MCH (27-31) pg MCHC (31-36) g/dL RDW (10-15) % Plt Count (150-450) 10^3/uL MPV (7.4-10.4) fL Neut % (Auto) % Lymph % (Auto) % Kings % (Auto) % Eos % (Auto) % Baso % (Auto) % Absolute Neuts (auto) (1.5-7.7) 10^3/ul Absolute Lymphs (auto) (1.0-4.8) 10^3/ul Absolute Monos (auto) (0-0.8) 10^3/ul Absolute Eos (auto) (0-0.6) 10^3/ul Absolute Basos (auto) (0-0.2) 10^3/ul Absolute Nucleated RBC 10^3/ul Nucleated RBC % INR (Anticoag Therapy) 1.00 (0.82-1.09) Sodium (135-145) mmol/L Potassium (3.5-5.0) mmol/L Chloride (101-111) mmol/L Carbon Dioxide (22-32) mmol/L Anion Gap (2-11) mmol/L BUN (6-24) mg/dL Creatinine (0.51-0.95) mg/dL Est GFR ( Amer) (>60) Est GFR (Non-Af Amer) (>60) BUN/Creatinine Ratio (8-20) Glucose (70-100) mg/dL Lactic Acid (0.5-2.0) mmol/L Calcium (8.6-10.3) mg/dL Magnesium (1.9-2.7) mg/dL Total Bilirubin (0.2-1.0) mg/dL AST (13-39) U/L ALT (7-52) U/L Alkaline Phosphatase (34-104) U/L C-Reactive Protein (<8.01) mg/L Total Protein (6.4-8.9) g/dL Albumin (3.2-5.2) g/dL Globulin (2-4) g/dL Albumin/Globulin Ratio (1-3) TSH (0.34-5.60) mcIU/mL Beta HCG, Quant mIU/mL Urine Color Yellow Urine Appearance Clear Urine pH 7.0 (5-9) Ur Specific [place] 1.021 (1.010-1.030) Urine Protein Negative (Negative) Urine Ketones Negative (Negative) Urine Blood Negative (Negative) Urine Nitrate Negative (Negative) Urine Bilirubin Negative (Negative) Urine Urobilinogen Negative (Negative) Ur Leukocyte Esterase Negative (Negative) Urine Glucose Negative (Negative) Urine Opiates Screen None detected (None Detect) Ur Barbiturates Screen None detected (None Detect) Ur Phencyclidine Scrn None detected (None Detect) Ur Amphetamines Screen None detected (None Detect) U Benzodiazepines Scrn None detected (None Detect) Urine Cocaine Screen None detected (None Detect) U Cannabinoids Screen None detected (None Detect) Serum Alcohol (<10) mg/dL Result Diagrams: 04/03/19 00:53 04/03/19 00:53 Lab Statement: Any lab studies that have been ordered have been reviewed, and results considered in the medical decision making process. - Radiology chest Radiology Interpretation Completed By: ED Physician Summary of Radiographic Findings: no active disease Complex Multi-Symp Course/Dx Course Of Treatment: 33-year-old male presents with the fatigue that has been going on for a while. She also admits occasional shortness breath. She has a history of menorrhagia. She has an appointment tomorrow to start control. She states that she's been having heavy bleeding with clots. States this is the last day of her period. She states she started iron because she has iron deficiency anemia due to the heavy bleeding. She admits to lower abdominal pain which is normal for her period. Denies any urinary symptoms. No chest pain. No headache. She states she gets dizzy when she stands up occasionally. no cough. no fever. On exam BP is on the softer side. Lungs clear to auscultation. Normal neuro exam. wbc normal. electrolytes normal. The hemoglobin is 11.5 which is improved from previous. Gave fluids and feeling better. Told to follow up as scheduled for control. told continue iron. Patient understands and agrees plan. - Diagnoses Differential Diagnoses/HQI/PQRI: Metabolic Abnormality, Sepsis, Urinary Tract Infection Provider Diagnoses: Fatigue, Shortness of breath Discharge ED - Sign-Out/Discharge Documenting (check all that apply): Patient Departure - Discharge Plan Condition: Good Disposition: HOME Patient Education Materials: Fatigue (ED) Referrals: Boyd Giordano MD [Primary Care Provider] - Additional Instructions: take iron as prescribed drink plenty of fluids follow up with primary within 5 days Return to ED if develop any new or worsening symptoms - Billing Disposition and Condition Condition: GOOD Disposition: Home
[2019-04-03 02:58] VITALS: BP 100/58
== END 2019-04-03 02:35 | disposition home or self-care (01) ==
LOC: ED 21:01
DX: R53.83 Other fatigue (principal); R06.02 Shortness of breath; F41.9 Anxiety disorder, unspecified; F90.9 Attention-deficit hyperactivity disorder, unspecified type; F17.210 Nicotine dependence, cigarettes, uncomplicated; Z79.899 Other long term (current) drug therapy
CPT/HCPCS: 36415; 71045; 80053; 80307; 80320; 81003; 83605; 83735; 84443; 84702; 85025; 85610; 86140; 99283; G0480

== ENCOUNTER 2019-07-12 17:32 | Emergency (ER) | payer OTHER ==
--- OUTSIDE RECORDS SUMMARY | 2019-07-12 17:38 | XMS REPORT ---
:1985 Author Organization [facility] Care Team Providers Name Role Phone Jared Lal Primary Care Physician Unavailable Allergies, Adverse Reactions, Alerts Allergy Code CodeSystem Reaction Severity Criticality Status Start Substance Date Moderate Medications Medication Medication Medication Start Stop Route Dose Status Fill Code CodeSystem Date Date Instructions RxNorm Problems Problem Name Code CodeSystem Alternate Alternate Start End Status Narrative Code CodeSystem Date Date Generalized 04245916 SNOMED-CT 2019-0 Active anxiety 3-22 disorder Generalized 87918169 SNOMED-CT 20190 Active anxiety 3-22 disorder Relevant diagnostic tests/laboratory data Narrative No Information Procedures Procedure Code CodeSystem Target Date of Status Service Device Device Device Name Site Procedure Delivery Code Name UID Location Psychother [id number] SNOMED-CT () 2019-03-04 completed [facility], [facility]- [facility] patient [address], [place], [id number] SNOMED-CT () 2018-12-[address], [id number] Encounters/Encounter Diagnoses Encounter Name Encounter Diagnosis Diagnosis Diagnosis Date of Service Code Code Name CodeSystem Diagnosis Delivery Location Psychotherapy - 91713 [id number] Generalized SNOMED-CT 2019-03-04 [facility] [address], [place], [id number] Vital Signs No Information Social History Element Description Description Start End Code CodeSystem AdditionalInfo Date Date SexAssignedAtBirth Female 1985- F AdministrativeGender 0-05 Hospital Discharge Instructions Reason For Referral Medical Equipment FDA Assessments
--- OUTSIDE RECORDS SUMMARY | 2019-07-12 17:38 | XMS REPORT | Continuity of Care Document ---
:1985 External Reference #:[id number] Author Name Kena Lauren MD (transmitted by agent of provider Ade Conti) Address [address] [place] [address] Care Team Providers Name Role Phone HCP given Care Team Information Global Category Manager Unavailable Jesus Sanon MD - Otolaryngology Care Team Information Global Category Manager [facility] - Pulmonary Care Team Information Global Category Manager [phone] Disease [facility] - Care Team Information Global Category Manager [phone] Cardiology - Cardiovascular Disease Dm Degroot MD - Orthopaedic Care Team Information Global Category Manager [phone] Surgery [facility] - Surgery Care Team Information Global Category Manager Problems Active Problems Provider Date Pulmonary Arteriovenous Malformations Boyd Giordano M.D. Onset: 03/18/2014 Anemia Kena Lauren MD Onset: 06/28/2019 Adjustment disorder with mixed emotional Emani Carter [...] Smoker Quit 01/2018 Unknown Smoking Status Reviewed: 06/28/19 Former Cigarette Smoker Quit 01/2018 ETOH Use [...] Medications Active Medications SIG Qnty Indications Ordering Date Provider Vitamin C 1 by mouth every day Unknown 06/27/2019 1000mg Tablets Ferrous Gluconate 1 by mouth every day 30tabs D64.9 Kena Lauren 2019 MD Tayla 324(38Fe) mg Tablets Depo-Provera 150mg intramuscular Unknown 03/20/2019 q3 months 150mg/ml Suspension Immunizations CPT Code Status Date Vaccine Lot # U-[id number] Given 03/27/2017 Influenza,Unspecified [id number] Given 04/14/2015 Adacel or Boostrix, TDaP [id number] Refused 01/28/2016 Influenza Virus Vaccine, Quadrivalent, Split, Im Use Vital Signs Date Vital Result Comment 06/28/2019 8:47am BP Systolic 100 mmHg per pt BP Diastolic 60 mmHg per pt Body Temperature 97.9 F per pt Weight 110.00 lb per pt 03/29/2019 10:30am BP Systolic 112 mmHg BP Diastolic 68 mmHg Height 65.5 inches 5'5.50" Weight 109.00 lb BMI (Body Mass Index) 17.9 kg/m2 Results Test Acquired Date Facility Test Result H/L Range Note Inr/Protime 04/03/2019 [facility] Inr 1.00 Normal 0.82-1.09 7 [phone] Laboratory test 04/03/2019 [facility] Lactic Acid 0.7 mmol/L Normal 0.5-2.0 2 finding [phone] CBC Auto Diff 04/03/2019 [facility] White Blood 5.6 10^3/uL Normal 3.5-10.8 [phone] Count Red Blood Count 4.03 10^6/uL Normal 3.70-4.87 Hemoglobin 11.5 g/dL Low 12.0-16.0 Hematocrit 35 % Normal 35-47 Mean Corpuscular Volume 86 fL Normal 80-97 Mean Corpuscular Hemoglobin 29 pg Normal 27-31 Mean Corpuscular HGB Conc 33 g/dL Normal 31-36 Red Cell Distribution Width 15 % Normal 10-15 Platelet Count 164 10^3/uL Normal 150-450 Mean Platelet Volume 10.0 fL Normal 7.4-10.4 Abs Neutrophils 2.2 10^3/uL Normal 1.5-7.7 Abs Lymphocytes 2.5 10^3/uL Normal 1.0-4.8 Abs Monocytes 0.7 10^3/uL Normal 0-0.8 Abs Eosinophils 0.2 10^3/uL Normal 0-0.6 Abs Basophils 0.1 10^3/uL Normal 0-0.2 Abs Nucleated RBC 0.0 10^3/uL Granulocyte % 38.5 % Lymphocyte % 45.0 % Monocyte % 11.8 % Eosinophil % 3.4 % Basophil % 1.3 % Nucleated Red Blood Cells % 0.1 Comp Metabolic Panel 04/03/2019 [facility] Sodium 135 mmol/L Normal 135-145 [phone] Potassium 4.2 mmol/L Normal 3.5-5.0 Chloride 103 mmol/L Normal 101-111 Co2 Carbon Dioxide 25 mmol/L Normal 22-32 Anion Gap 7 mmol/L Normal 2-11 Glucose 94 mg/dL Normal 70-100 Blood Urea Nitrogen 16 mg/dL Normal 6-24 Creatinine 0.74 mg/dL Normal 0.51-0.95 BUN/Creatinine Ratio 21.6 High 8-20 Calcium 9.2 mg/dL Normal 8.6-10.3 Total Protein 7.1 g/dL Normal 6.4-8.9 Albumin 4.3 g/dL Normal 3.2-5.2 Globulin 2.8 g/dL Normal 2-4 Albumin/Globulin Ratio 1.5 Normal 1-3 Total Bilirubin 0.30 mg/dL Normal 0.2-1.0 Alkaline Phosphatase 42 U/L Normal 34-104 Alt 14 U/L Normal 7-52 Ast 25 U/L Normal 13-39 Egfr Non- 91.5 >60 Egfr 110.8 >60 3 Laboratory test 04/03/2019 [facility] Magnesium 2.0 mg/dL Normal 1.9- 2.7 finding [phone] C Reactive Protein < 1.00 mg/L Normal <8.01 Alcohol < 10 mg/dL Normal <10 HCG < 0.60 mIU/mL 4 TSH (Thyroid Stim Horm) 1.29 mcIU/mL Normal 0.34-5.60 Urinalysis Profile 04/03/2019 [facility] Urine Color Yellow [phone] Urine Appearance Clear Urine Specific [place] 1.021 Normal 1.010-1.030 Urine pH 7.0 Normal 5-9 Urine Urobilinogen Negative Negative Urine Ketones Negative Negative Urine Protein Negative Negative Urine Leukocytes Negative Negative Urine Blood Negative Negative Urine Nitrite Negative Negative Urine Bilirubin Negative Negative Urine Glucose Negative Negative Urine Drug 04/03/2019 [facility] Urine Amphetamine None Detected None Detect SCR ED & [phone] Screen Pain Clinic Urine Barbiturates Screen None Detected None Detect Urine Benzodiazepine Screen None Detected None Detect Urine Cannabinoids Screen None Detected None Detect Urine Cocaine Screen None Detected None Detect Urine Opiates Screen None Detected None Detect Urine Phencyclidine Screen None Detected None Detect 5 CBC Auto Diff 03/29/2019 [facility] White Blood 8.1 10^3/uL Normal 3.5-10.8 [phone] Count Red Blood Count 3.78 10^6/uL Normal [...] Cells % 0.0 Laboratory test finding 03/29/2019 [facility] Ferritin 5.8 ng/mL Low 11-307 [phone] Iron & Iron Binding 03/29/2019 [facility] Iron 32 g/dL Low 50-212 Capacity [phone] Unsaturated Iron Binding < 492 g/dL Total Iron Binding Capacity 507 g/dL High 250-450 Transferrin 362 mg/dL Normal 203-362 % Iron Saturation 6 % Low 15-55 1 Standard intensity warfarin therapeutic range: 2.0-3.0 High intensity warfarin therapeutic range: 2.5-3.5 2 [place] Severe Sepsis and Septic Shock Management Bundle Measure requires all lactic acids initially measuring >2.0 mmol/L be repeated. 3 Because ethnic data is not always readily [...] 15-29 5 Kidney failure <15 (or dialysis) 4 <5.0 Negative 5.0 - 25.0 Indeterminate (Repeat testing recommended after 72 hours) >25.0 Positive Perimenopausal women can display HCG levels of up to 20 mIU/mL 5 The urine specimen was tested at the listed cutoffs: Drug class test level (ng/mL) Amphetamines 500 Barbiturates 200 Benzodiazepine metabolites 200 Cocaine metabolites 150 Cannabinoids 50 Opiates 300 Pcp 25 Specimen was received without chain of custody. Results should be used for medical purposes only. Procedures Description No Information Available Medical Devices Description No Information Available Encounters Type Date Location Provider Dx Diagnosis Office Visit 06/28/2019 Main Office Kena Lauren MD D64.9 Anemia, unspecified 9:30a Z30.09 Encounter for oth general coun and advice on contraception G25.81 Restless legs syndrome Office Visit 03/29/2019 10:30a Main Office Kena Lauren D64.9 Anemia unspecified G25.81 Restless legs syndrome N92.0 Excessive and frequent menstruation with regular cycle Z68.1 Body mass index (BMI) 19.9 or less, adult Assessments Date Code Description Provider 06/28/2019 D64.[place] Anemia, unspecified Kena Lauren MD 06/28/2019 Z30.09 Encounter for other general counseling and Kena Lauren MD advice on contraception 06/28/2019 G25.81 Restless legs syndrome Kena Lauren MD 03/29/2019 D64.9 Anemia, unspecified Kena Lauren MD 03/29/2019 G25.81 Restless legs syndrome Kena Lauren MD 03/29/2019 N92.0 Excessive and frequent menstruation with Kena Lauren MD regular cycle 03/29/2019 Z68.1 Body mass index (BMI) 19.9 or less, adult Kena Lauren MD Plan of Treatment Future Appointment(s):09/30/2019 2:30 pm - Kena Lauren MD at [id number] - Emani Carter, PAZ00.00 Encounter for general adult medical examination without abnoComments:32 year old female. Screening updated, will get baseline labs.F43.23 Adjustment disorder with mixed anxiety and depressed moodComments:Doing well without meds, since going through counseling. Monitor.Q25.72 Congenital pulmonary arteriovenous malformationComments:Refer back to [facility] Pulmonology for f/u on pulmonary AVM.Referral:[facility], Pulmonary Diseases Functional Status Description No Information Available Mental Status Description No Information Available Referrals Description No Information Available
--- OUTSIDE RECORDS SUMMARY | 2019-07-12 17:38 | XMS REPORT | Continuity of Care Document ---
:1985 External Reference #:[id number] Author Name Kena Lauren MD (transmitted by agent of provider Lacey Duque) Address [address] [place] [address] Care Team Providers Name Role Phone HCP given Care Team Information Sas Architect Unavailable Jesus Sanon MD - Otolaryngology Care Team Information Sas Architect [facility] - Pulmonary Care Team Information Sas Architect [phone] Disease [facility] - Care Team Information Sas Architect [phone] Cardiology - Cardiovascular Disease Dm Degroot MD - Orthopaedic Care Team Information Sas Architect [phone] Surgery [facility] - Surgery Care Team Information Sas Architect Problems Active Problems Provider Date Pulmonary Arteriovenous [...] Vaccine Lot # [id number] Given 03/27/2017 Influenza,Unspecified [id number] Given 04/14/2015 Adacel or Boostrix, TDaP [id number] Refused 01/28/2016 Influenza Virus Vaccine, Quadrivalent, Split, [...] Test Result H/L Range Note Inr/Protime 04/03/2019 [facility] Inr 1.00 Normal 0.82-1.09 8 [phone] Laboratory test 04/03/2019 [facility] Lactic Acid 0.7 mmol/L Normal 0.5-2.0 2 finding [phone] CBC Auto Diff 04/03/2019 [facility] White Blood 5.6 10^3/uL Normal 3.5-10.8 [phone] Count Red Blood Count 4.03 10^6/uL Normal [...] Cells % 0.1 Comp Metabolic Panel 04/03/2019 [facility] Sodium 135 mmol/L Normal 135-145 [phone] Potassium 4.2 mmol/L Normal 3.5-5.0 Chloride 103 [...] Egfr 110.8 >60 3 Laboratory test 04/03/2019 [facility] Magnesium 2.0 mg/dL Normal 1.9- 2.7 finding [phone] C Reactive Protein < 1.00 mg/L Normal <8.01 Alcohol < 10 mg/dL Normal <10 HCG < 0.60 mIU/mL 4 TSH (Thyroid Stim Horm) 1.29 mcIU/mL Normal 0.34-5.60 Urinalysis Profile 04/03/2019 [facility] Urine Color Yellow [phone] Urine Appearance Clear Urine Specific [place] 1.021 Normal 1.010-1.030 Urine pH 7.0 Normal 5-9 Urine Urobilinogen Negative Negative Urine Ketones Negative Negative Urine Protein Negative Negative Urine Leukocytes Negative Negative Urine Blood Negative Negative Urine Nitrite Negative Negative Urine Bilirubin Negative Negative Urine Glucose Negative Negative Urine Drug 04/03/2019 [facility] Urine Amphetamine None Detected None Detect SCR ED & [phone] Screen Pain Clinic Urine Barbiturates Screen None Detected None Detect Urine Benzodiazepine Screen None Detected None Detect Urine Cannabinoids Screen None Detected None Detect Urine Cocaine Screen None Detected None Detect Urine Opiates Screen None Detected None Detect Urine Phencyclidine Screen None Detected None Detect 5 CBC Auto Diff 03/29/2019 [facility] White Blood 8.1 10^3/uL Normal 3.5-10.8 [phone] Count Red Blood Count 3.78 10^6/uL Normal [...] Cells % 0.0 Laboratory test finding 03/29/2019 [facility] Ferritin 5.8 ng/mL Low 11-307 [phone] Iron & Iron Binding 03/29/2019 [facility] Iron 32 g/dL Low 50-212 Capacity [phone] Unsaturated Iron Binding < 492 g/dL Total [...] advice on contraception G25.81 Restless legs syndrome N92.0 Excessive and frequent menstruation with regular cycle Office Visit 03/29/2019 10:30a Main Office Kena Lauren D64.9 Saray unspecified G25.81 Restless legs syndrome N92.0 Excessive and frequent menstruation with regular cycle Z68.1 Body mass index (BMI) 19.9 or less, adult Assessments Date Code Description Provider 06/28/2019 D64.9 Anemia, unspecified Kena Lauren MD 06/28/2019 Z30.09 Encounter for other general counseling and Kena Lauren MD advice on contraception 06/28/2019 G25.81 Restless legs syndrome Kean Lauren MD 06/28/2019 N92.0 Excessive and frequent menstruation with Kena Lauren MD regular cycle 03/29/2019 D64.9 Anemia, unspecified Kena Lauren MD 03/29/2019 G25.81 Restless legs syndrome Kena Lauren MD 03/29/2019 N92.0 Excessive and frequent menstruation with Kena Lauren MD regular cycle 03/29/2019 Z68.1 Body mass index (BMI) 19.9 or less, adult Kena Lauren MD Plan of Treatment Future Appointment(s):09/30/2019 2:30 pm - Kena Lauren MD at [id number] - Emani Carter, PAZ00.00 Encounter for general adult medical examination without abnoComments:32 year old female. Screening updated, will get baseline labs.F43.23 Adjustment disorder with mixed anxiety and depressed moodComments:Doing well without meds, since going through counseling. Monitor.Q25.72 Congenital pulmonary arteriovenous malformationComments:Refer back to [facility] Pulmonology for f/u on pulmonary AVM.Referral:[facility], Pulmonary Diseases Functional Status Description No Information Available Mental Status Description No Information Available Referrals Description No Information Available
[2019-07-12 17:49] VITALS: BP 122/63
--- NOTE | 2019-07-12 17:50 | UC ---
Dental HPI - HPI Summary HPI Summary: 33-year-old female presents with onset of a mildly tender area at the base of her left upper teeth this morning. States she noticed a "bubble" in the area. No dentist appointment currently scheduled. Denies fever, chills, trismus, or dental drainage. - History of Current Complaint Chief Complaint: UCDentalProblem Stated Complaint: DENTAL PAIN Time Seen by Provider: 07/12/19 17:39 Hx Obtained From: Patient Hx Last Menstrual Period: 06/11/19 Pain Intensity: 0 Dental: 1 - Area of induration and mild fluctuance without drainage. - Allergies/Home Medications Allergies/Adverse Reactions: Allergies Allergy/AdvReac Type Severity Reaction Status Date / Time acetaminophen Allergy Severe Airway Verified 07/12/19 17:39 [From Coricidin] Obstruction chlorpheniramine Allergy Severe Airway Verified 07/12/19 17:39 [From Coricidin] Obstruction Influenza Virus Vaccines Allergy Severe Airway Verified 07/12/19 17:39 Obstruction phenylpropanolamine Allergy Severe Airway Verified 07/12/19 17:39 [From Coricidin] Obstruction Adhesive Tape Allergy Mild Rash And Verified 07/12/19 17:39 Itching diphenhydramine Allergy Unknown Verified 07/12/19 17:39 [From Benadryl] Reaction Details Home Medications: Home Medications Multivit/Iron/Folic Acid/Hb179 [Womens Multivit Hi Potency Tab] 1 each PO DAILY WITH MEAL 12/02/18 [History Confirmed 07/12/19] Ferrous Gluconate TAB* [Fergon TAB*] 1 tab PO DAILY 04/03/19 [History Confirmed 07/12/19] Amoxicillin/Clavulanate TAB* [Augmentin TAB 875*] 875 mg PO BID 10 Days #20 tab 07/12/19 [Rx] Ascorbic Acid TAB* [Vitamin C TAB*] 1,000 mg PO DAILY 07/12/19 [History Confirmed 07/12/19] medroxyPROGESTERone ACETATE* [DEPO-Provera] 150 mg IM ONCE 07/12/19 [History Confirmed 07/12/19] PMH/Surg Hx/FS Hx/Imm Hx Previously Healthy: Yes - Surgical History Surgical History: Yes Surgery Procedure, Year, and Place: EAR TUBES A CHILD - Family History Known Family History: Positive: Hypertension, Diabetes, Respiratory Disease - COPD, Other - CA - Social History Occupation: Employed Full-time Lives: With Family Alcohol Use: None Alcohol Amount: Sober for approximately 3 years Substance Use Type: None Smoking Status (MU): Light Every Day Tobacco Smoker Type: Cigarettes Amount Used/How Often: less than 10 per day Length of Time of Smoking/Using Tobacco: 7 YEARS Have You Smoked in the Last Year: Yes When Did the Patient Quit Smoking/Using Tobacco: vape Household Exposure Type: Cigarettes - Immunization History Most Recent Influenza Vaccination: this season Most Recent Pneumonia Vaccination: none Review of Systems All Other Systems Reviewed And Are Negative: Yes Constitutional: Negative: Fever, Chills ENT: Positive: Dental Pain - See HPI Respiratory: Positive: Negative Cardiovascular: Positive: Negative Gastrointestinal: Positive: Negative Genitourinary: Positive: Negative Musculoskeletal: Positive: Negative Neurological/Mental Status: Positive: Negative Is Patient Immunocompromised?: No Physical Exam - Summary Physical Exam Summary: GENERAL APPEARANCE: Well developed, well nourished, alert and cooperative, and appears to be in no acute distress. MOUTH/THROAT: Pharynx normal. No tonsilar inflammation, swelling, exudate, or lesions. Uvula midline. Area or erythema, induration, and mild fluctuance noted at the base of the left upper first bicuspid. No trismus. NECK: Neck supple, non-tender without lymphadenopathy. CARDIAC: Normal S1 and S2. No S3, S4 or murmurs. Rhythm is regular. There is no peripheral edema, cyanosis or pallor. Extremities are warm and well perfused. Capillary refill is less than 2 seconds. Peripheral pulses intact. LUNGS: Clear to auscultation without rales, rhonchi, wheezing or diminished breath sounds. ABDOMEN: Positive bowel sounds. Soft, nondistended, nontender. No guarding or rebound. No masses or hepatosplenomegally. MUSKULOSKELETAL: ROM intact to all extremities. No joint erythema or tenderness. Normal muscular development. Normal gait. SKIN: Skin normal color, texture and turgor with no lesions or eruptions. Triage Information Reviewed: Yes Vital Signs Reviewed: Yes Dental Complaint Course/Dx - Course Course Of Treatment: 33-year-old female presents with onset of a mildly tender area at the base of her left upper teeth this morning. States she noticed a "bubble" in the area. No dentist appointment currently scheduled. Denies fever, chills, trismus, or dental drainage. Afebrile. Vital signs stable. Patient had an area of erythema, induration, and mild fluctuance noted at the base of the left upper first bicuspid. No trismus was noted. No cervical lymphadenopathy. Remainder of exam is unremarkable. Will treat her for a dental abscess with a course of Augmentin 8 and 75 mg twice a day 10 days. She is to schedule an appointment with her dentist at the next available. Anticipatory guidance and warning signs are reviewed with patient. Verbalizes understanding and agrees with plan of care. - Differential Dx/Diagnosis Differential Diagnosis/Dx: Dental Abscess, Dental Caries, Fractured Tooth, Gingivitis, Odontogenic Pain, Peridontic Disease Provider Diagnosis: Dental abscess Discharge ED - Sign-Out/Discharge Documenting (check all that apply): Patient Departure All imaging exams completed and their final reports reviewed: No Studies - Discharge Plan Condition: Stable Disposition: HOME Prescriptions: Amoxicillin/Clavulanate TAB* [Augmentin TAB 875*] 875 mg PO BID 10 Days #20 tab Patient Education Materials: Dental Abscess (ED) Referrals: Boyd Giordano MD [Primary Care Provider] - Additional Instructions: Start Augmentin 875 mg twice a day for 10 days. Take with food to avoid upset stomach. Be sure to complete the entire course even if feeling better. Take acetaminophen (Tylenol) or ibuprofen (Advil, Motrin) according to directions as needed for pain. Be sure to rinse your mouth out with a warm salt water solution after every time you eat to remove any debris. Make an appointment with your dentist at next available appointment. Seek immediate medical attention in the emergency room if you develop fever greater than 100.5 F, you are unable to open of close your mouth, are unable to swallow, have difficulty breathing, or any worsening of symptoms. - Billing Disposition and Condition Condition: STABLE Disposition: Home
== END 2019-07-12 18:05 | disposition home or self-care (01) ==
LOC: UCEAST 17:32
DX: K04.7 Periapical abscess without sinus (principal); Z88.6 Allergy status to analgesic agent; Z88.7 Allergy status to serum and vaccine; Z88.8 Allergy status to other drugs, medicaments and biological substances; Z91.048 Other nonmedicinal substance allergy status; F17.210 Nicotine dependence, cigarettes, uncomplicated
CPT/HCPCS: 99212; G0463